=== PATIENT | male | born 1965 | race Caucasian/White ===

== ENCOUNTER 2018-03-13 21:23 | Emergency (ER) | payer OTHER ==
[~2018-03-13] VITALS: Ht 177.8 cm; Wt 74.6 kg
[2018-03-13 21:27] VITALS: TEMP 37.1; Ht 177.8 cm; Wt 74.6 kg
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
[2018-03-13] MEDS ORDERED: ACETAMINOPHEN 325 MG TAB PO STA (22:02)
[2018-03-13] MEDS ORDERED: DIPHTHERIA/TETANUS/PERTUSSIS 0.5 ML SYR/VIAL IM. ONE (22:15)
--- NOTE | 2018-03-13 22:31 | DIAGNOSTIC IMAGING REPORT ---
SINGLE VIEW CHEST CLINICAL HISTORY: Fall. FINDINGS: An AP, portable, upright chest radiograph is compared to study dated 11/25/2015. The examination is degraded by portable technique and patient rotation. The cardiomediastinal silhouette is unremarkable. The lungs and pleural spaces are clear. No pneumothorax is seen. The bony thorax is grossly intact. IMPRESSION: No active disease in the chest. Electronically signed by: Yon Mathews M.D. 03/13/2018 10:30 PM Dictated Date/Time: 03/13/2018 10:30 PM
--- NOTE | 2018-03-13 22:31 | DIAGNOSTIC IMAGING REPORT ---
LEFT ELBOW 2 VIEWS CLINICAL HISTORY: Fall with left elbow pain. FINDINGS: AP and lateral views of the left elbow are obtained. No prior studies are available for comparison at the time of dictation. The skeletal structures are well mineralized. No fracture is identified. There is no joint effusion. The joint spaces are maintained. A small enthesophyte arises from the lateral humeral epicondyle. The overlying soft tissues are within normal limits. IMPRESSION: There is no radiographic evidence of left elbow fracture. Electronically signed by: Yon Mathews M.D. 03/13/2018 10:30 PM Dictated Date/Time: 03/13/2018 10:28 PM
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
[2018-03-13 23:36] VITALS: BP 125/89; PULSE 74; O2SAT 95
== END 2018-03-13 23:37 | disposition home or self-care (01) ==
LOC: EDBD 21:23 → C.EDC 21:24
DX: S00.81XA Abrasion of other part of head, initial encounter (principal); S30.811A Abrasion of abdominal wall, initial encounter; S50.812A Abrasion of left forearm, initial encounter; S80.212A Abrasion, left knee, initial encounter; Z23 Encounter for immunization; V19.3XXA Pedal cyclist (driver) (passenger) injured in unspecified nontraffic accident, initial encounter; Y93.55 Activity, bike riding; K08.109 Complete loss of teeth, unspecified cause, unspecified class; F17.200 Nicotine dependence, unspecified, uncomplicated; Z86.59 Personal history of other mental and behavioral disorders

== ENCOUNTER 2021-09-25 08:54 | Inpatient (IN) ==
[2021-09-25] MEDS ORDERED: SODIUM CHLORIDE 0.9% 1000ML 1,000 ML IV ONE (10:39)
[2021-09-25] MEDS ORDERED: ONDANSETRON INJ 2 MG/ML 2 ML VIAL IV STA (10:39)
[2021-09-25] MEDS ORDERED: KETOROLAC TROMETHAMINE 15 MG/ML VIAL IV ONE (10:42)
--- NOTE | 2021-09-25 10:48 | Emergency Department Note ---
Impression & Plan SBO (small bowel obstruction), Diverticulitis, Influenza A ED Provider Note NAME: ZEYAD POTTER SR AGE: 56 SEX: M : 1965 ARRIVES VIA: Public Transportation INFORMANT: Patient ED PROVIDER(S): Angus Suárez DO CHIEF COMPLAINT: URI with abdominal pain HPI: Patient is a 56-year-old male who presents ER for upper respiratory symptoms which started this past Saturday. He has a cough and congestion. Loss of taste or smell. He admits to diffuse myalgias and arthralgias and epigastric abdominal pain. He was around a family member on that was sick with same symptoms. He does have a history of smoking. No other exacerbating or remitting factors. ROS: See above HPI for pertinent positives & negatives. A total of 10 systems reviewed and were otherwise negative. PAST MEDICAL HISTORY:See Below PAST SURGICAL HISTORY:See Below FAMILY HISTORY:See Below SOCIAL HISTORY:See Below HOME MEDICATIONS:See Below ALLERGIES:See Below VITALS:See Below PHYSICAL EXAMINATION: GENERAL: Sitting up in bed, alert, well appearing, well nourished, no distress, non-toxic EYE EXAM: normal conjunctiva. PERRL and EOM's grossly intact. OROPHARYNX: no exudate, no erythema, lips, buccal mucosa, and tongue normal and mucous membranes are moist NECK: supple, no nuchal rigidity, no adenopathy, non-tender LUNGS: faint wheezing B/L. Normal chest wall mechanics HEART: no murmurs, S1 normal and S2 normal ABDOMEN: abdomen soft, mild periumbilical tenderness, normo-active bowel sounds, no masses, no rebound or guarding. UPPER EXTREMITIES: upper extremities are grossly normal. LOWER EXTREMITIES: No pitting edema. NEURO EXAM: Normal sensorium, cranial nerves II-XII grossly intact, normal speech, no gross weakness of arms, no gross weakness of legs. MEDICAL DECISION MAKING: Patient is a 56 male who presents the ER for abdominal pain and upper respiratory symptoms. IV was established blood work is obtained. Labs show no significant leukocytosis or anemia. BMP with mild hypokalemia 3.1. LFTs bilirubin was unremarkable. Troponin was negative. Lipase unremarkable. UA was contaminated with multiple epithelial cells. Will not treat. Influenza positive. CT abdomen pelvis shows perforation with a possible high-grade obstruction. Discussed with general surgery who saw the patient at bedside. They believe that this is small bowel diverticulitis with an abscess. Recommended IV antibiotics. Discussed with Marisol Larson for further evaluation. Patient was seen by Marck Quinones as well as Momo Handley. Triage Nursing notes reviewed. Limited review of prior medical records performed Vital Signs: reviewed and remarkable for no significant abnormalities Differential diagnosis: Differential diagnoses includes but is not limited to gastritis, peptic ulcer disease, GERD, gallbladder disease, pancreatitis, small bowel obstruction, acute coronary syndrome, pericarditis, ischemic bowel, irritable bowel disease, irritable bowel syndrome, appendicitis, diverticulitis, malignancy, hernia, urinary tract infection, torsion, perforation, trauma, infectious. ER treatment provided: See below Diagnostics interpreted by me: ECG: Sinus rhythm rate 67 Normal axis No PVCs QTC 418 Cardiac Monitoring: An order was placed for continuous cardiac monitoring. The monitor shows a rate of 70 with sinus rhythm. Laboratory studies: As stated above and show below. Imaging studies: CT abdomen pelvis suggest closed-loop bowel obstruction with perforation and abscess Consultation(s): Patient was seen and evaluated by Dr. Momo Handley who recommend admission to the hospitalist and IV antibiotics for treatment of diverticulitis. Discussed with Marisol Larson for admission Procedures: none Critical Care: None Past Med/Surg History Medical History CHI (closed head injury) (~2007) Diverticulitis, jejunum Major depression, recurrent (~2015) Voluntary Hospital Admission Surgical History H/O hernia repair (~2015) Family History Father Coronary heart disease Stroke Social History Smoking Status: Never smoker Tobacco Type: Cigarettes Age Started Using Tobacco: 20; packs per day: 0.25; Second Hand Exposure: No; Hx Alcohol Use: No Hx Substance Use: No Preferred Language: Maori Communication Ability: Effective Visual Impairment: Diminished Hearing Ability: Normal Toy Mechanic Required: No marital status: Current Living Situation: Spouse current occupational status: employed current occupation: currently [employer] but shut down due to Covid How many Children do You have: 0 Feels Safe at Home: Yes Childhood Exposure to Second-Hand Smoke: No caffeine: Yes Dental Care, Regularly: No Physical Activity Frequency: Does not Exercise Seatbelt Use: always Sunscreen Use: Yes Do you think of yourself as: straight/heterosexual Allergies Allergies Allergy/AdvReac Type Severity Reaction Status Date / Time No Known Allergies Allergy Mild Verified 09/25/21 11:02 Home Meds Home Medications Medication Instructions Recorded Confirmed No Known Home Medications 09/25/21 09/25/21 Results & Data (ED) Vital Signs Vital Signs - 24 hr 09/25/21 09:14 09/25/21 10:39 Temperature 36.3 C L Temperature Source Oral Pulse Rate 81 Pulse Rhythm Regular Pulse Strength Normal Respiratory Rate 20 Respiratory Effort / Characteristics Non-Labored Spontaneous Respiratory Depth Normal Respiratory Pattern Regular Blood Pressure 139/85 Blood Pressure Mean 103 Blood Pressure Position Sitting Pulse Oximetry 98 99 Oxygen Delivery Method Room Air Room Air Sepsis Recent Fever Within 48 Hours No Sepsis New/Unexplained Change in Mental Status No Sepsis Action Taken by Nursing No Action Required Laboratory Data Result diagrams: 09/25/21 10:47 09/25/21 10:47 Lab Results 09/25/21 09/25/21 09/25/21 Range/Units 10:47 10:47 12:25 WBC 10.51 (4.8-10.8) K/uL RBC 4.83 (4.7-6.1) M/uL Hgb 15.0 (14.0-18.0) g/dL Hct 44.2 (42-52) % MCV 91.5 (80-100) fL MCH 31.1 (25-34) pg MCHC 33.9 (32-36) g/dL RDW Std Deviation 43.8 (36.4-46.3) fL RDW Coeff of Dhaval 13.1 (11.5-14.5) % Plt Count 283 (130-400) K/uL MPV 9.5 (7.4-10.4) fL Immature Gran % (Auto) 0.4 % Neut % (Auto) 70.7 % Lymph % (Auto) 17.6 % [place] % (Auto) 9.6 % Eos % (Auto) 1.2 % Baso % (Auto) 0.5 % Neut # (Auto) 7.43 H (1.4-6.5) K/uL Lymph # (Auto) 1.85 (1.2-3.4) K/uL [place] # (Auto) 1.01 H (0.11-0.59) K/uL Eos # (Auto) 0.13 (0-0.5) K/uL Baso # (Auto) 0.05 (0-0.2) K/uL Immature Gran # (Auto) 0.04 H (0.00-0.02) K/uL Sodium 137 (136-145) mmol/L Potassium 3.1 L (3.5-5.1) mmol/L Chloride 102 (98-107) mmol/L Carbon Dioxide 30 (21-32) mmol/L Anion Gap 5.0 (3-11) BUN 21 H (7-18) mg/dl Creatinine 1.08 (0.6-1.4) mg/dl Est Cr Clr Drug Dosing 68.0 ml/min Est GFR ( Amer) 89.7 ml/min Est GFR (Non-Af Amer) 77.4 ml/min BUN/Creatinine Ratio 19.2 (10-20) Glucose 132 H (70-99) mg/dl Calcium 9.3 (8.5-10.1) mg/dl Total Bilirubin 0.8 (0.2-1) mg/dl AST 19 (15-37) U/L ALT 24 (12-78) U/L Alkaline Phosphatase 68 (45-117) U/L Troponin I < 0.015 (0-0.045) ng/ml Total Protein 8.1 (6.4-8.2) gm/dl Albumin 2.9 L (3.4-5.0) gm/dl Globulin 5.2 H (2.5-4.0) gm/dl Albumin/Globulin Ratio 0.6 L (0.9-2) Lipase 122 (73-393) U/L Urine Color Gisel Urine Appearance Cloudy A (Clear) Urine pH 5.0 (4.5-7.5) Ur Specific [place] 1.031 H (1.000-1.030) Urine Protein 2+ H (Negative) Urine Glucose (UA) Negative (Negative) Urine Ketones Trace H (Negative) Urine Blood Negative (Negative) Urine Nitrite Negative (Negative) Urine Bilirubin 1+ H (Negative) Urine Urobilinogen Negative (Negative) Ur Leukocyte Esterase Negative (Negative) Urine WBC (Auto) 10-30 H (0-5) /hpf Urine RBC (Auto) 0-4 (0-4) /hpf U Hyaline Cast (Auto) >30 H (0-5) /lpf U Epithel Cells (Auto) >30 H (0-5) /lpf Urine Bacteria (Auto) Negative (Negative) Ur Renal Epithelial Cell Not Reportable Granular Casts 20-30 H (0) /lpf Urine Mucus Present A (None Prsent) Urine Yeast Not Reportable Influ A Molecular Assay (Negative) Influ B Molecular Assay (Negative) 09/25/21 Range/Units 12:33 WBC (4.8-10.8) K/uL RBC (4.7-6.1) M/uL Hgb (14.0-18.0) g/dL Hct (42-52) % MCV (80-100) fL MCH (25-34) pg MCHC (32-36) g/dL RDW Std Deviation (36.4-46.3) fL RDW Coeff of Dhaval (11.5-14.5) % Plt Count (130-400) K/uL MPV (7.4-10.4) fL Immature Gran % (Auto) % Neut % (Auto) % Lymph % (Auto) % [place] % (Auto) % Eos % (Auto) % Baso % (Auto) % Neut # (Auto) (1.4-6.5) K/uL Lymph # (Auto) (1.2-3.4) K/uL [place] # (Auto) (0.11-0.59) K/uL Eos # (Auto) (0-0.5) K/uL Baso # (Auto) (0-0.2) K/uL Immature Gran # (Auto) (0.00-0.02) K/uL Sodium (136-145) mmol/L Potassium (3.5-5.1) mmol/L Chloride (98-107) mmol/L Carbon Dioxide (21-32) mmol/L Anion Gap (3-11) BUN (7-18) mg/dl Creatinine (0.6-1.4) mg/dl Est Cr Clr Drug Dosing ml/min Est GFR ( Amer) ml/min Est GFR (Non-Af Amer) ml/min BUN/Creatinine Ratio (10-20) Glucose (70-99) mg/dl Calcium (8.5-10.1) mg/dl Total Bilirubin (0.2-1) mg/dl AST (15-37) U/L ALT (12-78) U/L Alkaline Phosphatase (45-117) U/L Troponin I (0-0.045) ng/ml Total Protein (6.4-8.2) gm/dl Albumin (3.4-5.0) gm/dl Globulin (2.5-4.0) gm/dl Albumin/Globulin Ratio (0.9-2) Lipase (73-393) U/L Urine Color Urine Appearance (Clear) Urine pH (4.5-7.5) Ur Specific [place] (1.000-1.030) Urine Protein (Negative) Urine Glucose (UA) (Negative) Urine Ketones (Negative) Urine Blood (Negative) Urine Nitrite (Negative) Urine Bilirubin (Negative) Urine Urobilinogen (Negative) Ur Leukocyte Esterase (Negative) Urine WBC (Auto) (0-5) /hpf Urine RBC (Auto) (0-4) /hpf U Hyaline Cast (Auto) (0-5) /lpf U Epithel Cells (Auto) (0-5) /lpf Urine Bacteria (Auto) (Negative) Ur Renal Epithelial Cell Granular Casts (0) /lpf Urine Mucus (None Prsent) Urine Yeast Influ A Molecular Assay Positive A* (Negative) Influ B Molecular Assay Negative (Negative) Administered Medications Discontinued Medications Sodium Chloride (Nss 1000ml) 1,000 mls @ 999 mls/hr IV .Q1H1M ONE Stop: 09/25/21 11:39 Last Admin: 09/25/21 11:19 Dose: 999 mls/hr Documented by: [id number] Piperacillin Sod/Tazobactam (Sod 4.5 gm/ Dextrose) 120 mls @ 200 mls/hr IV NOW ONE; Protocol Stop: 09/25/21 14:01 Last Admin: 09/25/21 13:44 Dose: 200 mls/hr Documented by: [id number] Ioversol (Optiray 320 100ml) 95 ml IV ONCE ONE Stop: 09/25/21 12:43 Last Admin: 09/25/21 12:43 Dose: 95 ml Documented by: [id number] Ketorolac Tromethamine (Ketorolac Tromethamine 15 Mg/Ml Vial) 15 mg IV NOW ONE Stop: 09/25/21 10:43 Last Admin: 09/25/21 11:20 Dose: 15 mg Documented by: [id number] Ondansetron HCl (Ondansetron Inj 2 Mg/Ml 2 Ml Vial) 4 mg IV NOW STA Stop: 09/25/21 10:40 Last Admin: 09/25/21 11:18 Dose: 4 mg Documented by: [id number] Imaging Data Radiologist's Impression: Abdomen/Pelvis CT 09/25/21 10:39 CT abd pelvis IV con only CLINICAL HISTORY: epi abd pain COMPARISON STUDY: 03/25/2016 CT DOSE: 316.21 mGy.cm TECHNIQUE: Standard CT of the Abdomen and Pelvis was performed with IV contrast. A dose lowering technique was utilized adhering to the principles of ALARA. Contrast Volume: Optiray 320, 95 ml. The patient did not receive oral contrast. FINDINGS: Lung base: The lung bases are clear. Abdominal cavity and bowel: There is evidence for dilated loops of small bowel/jejunum in the left upper quadrant with what appears to be a high-grade, partial closed loop obstruction. Prominent mucosal thickening and edematous changes are present. There is perforation of the small bowel at this site with a abscess present in the left upper quadrant. Extraluminal air is seen within the fluid collection with no free air identified. This abnormal fluid collection measures approximately 8.4 x 3.3 x 9.0 cm in transverse, AP and craniocaudad dimensions respectively. The more distal small bowel loops are decompressed. The colon is of normal caliber. There is no evidence for free abdominal ascites. There is no evidence for adenopathy. Liver: There is homogeneous attenuation of the liver parenchyma. There is no evidence for enhancing mass lesion. Spleen: There is homogeneous attenuation of the splenic parenchyma. There is no enhancing mass lesion. Pancreas: There is homogeneous attenuation of the pancreatic parenchyma. There is no evidence for mass lesion or peripancreatic fluid collection. Gall Bladder: The gallbladder is well distended with suspicion of cholelithiasis. Gallbladder ultrasound would be the study of choice for further evaluation. Adrenal glands: The adrenal glands are normal in size and attenuation. There is no evidence for enhancing mass lesion. Kidneys: There is homogeneous attenuation of the renal parenchyma bilaterally. There is no evidence for renal calculus or hydronephrosis. There is no evidence for enhancing mass. Bladder: The bladder is within normal limits with no evidence for focal mass, calculus or diverticulum. : There is no evidence for pelvic mass or adenopathy. There is no evidence for pelvic ascites. The prostate is mildly enlarged. Vasculature: There is no evidence for aneurysmal dilatation of the abdominal aorta. IVC filter is in place. Osseous structures: There is no acute osseous pathology. IMPRESSION: 1. Evidence for a high-grade, partial closed-loop small bowel obstruction of left upper quadrant most likely involving the jejunum. There is perforation of small bowel with localized fluid collection and extraluminal air most aminata acteristic of an abscess. No free intraperitoneal air is identified. 2. Suspicion of choledocholithiasis. 3. Additional nonacute findings are delineated above. ACT 112: Negative or not required by law. Electronically signed by: Raz Reaves M.D. 09/25/2021 1:21 PM Chest X-Ray 09/25/21 10:39 XR chest 1V portable CLINICAL HISTORY: Chest Pain. COMPARISON STUDY: 03/13/2018 TECHNIQUE: 1 view of the chest FINDINGS: Single frontal view of the chest demonstrates the cardiomediastinal silhouette to be within normal limits. The lungs are clear of alveolar opacities. There is no evidence for pleural effusion. There is no evidence for vascular congestion. There is no acute osseous pathology. IMPRESSION: No acute cardiopulmonary disease. ACT 112: Negative or not required by law. Electronically signed by: Raz Reaves M.D. 09/25/2021 11:23 AM Discharge Plan Visit Data Chief Complaint: Abdominal Pain Stated Complaint: HEAD ACHE,ABD PAIN ED Provider: Angus Suárez Discharge Problem: SBO (small bowel obstruction), Diverticulitis, Influenza A Forms Stand Alone Forms: [employer] Prescriptions Prescriptions: No Action No Known Home Medications RF: 0 Referrals Referrals: Porter aSnto DO [Primary Care Provider] -
[2021-09-25 10:58] LABS: Basophils # (auto) 0.05 K/uL (0-0.2); Basophils % (auto) 0.5 %; Eosinophils # (auto) 0.13 K/uL (0-0.5); Eosinophils % (auto) 1.2 %; Hematocrit (blood only) 44.2 % (42-52); Immature Granulocytes # (auto) 0.04 K/uL (0.00-0.02); Immature Granulocytes % (auto) 0.4 %; Lymphocytes # (auto) 1.85 K/uL (1.2-3.4); Lymphocytes % (auto) 17.6 %; Mean Corpuscular Hemoglobin 31.1 pg (25-34); Mean Corpuscular Hgb Conc 33.9 g/dL (32-36); Mean Corpuscular Volume 91.5 fL (80-100); Mean Platelet Volume 9.5 fL (7.4-10.4); Monocytes # (auto) 1.01 K/uL (0.11-0.59); Monocytes % (auto) 9.6 %; Neutrophils # (auto) 7.43 K/uL (1.4-6.5); Neutrophils % (auto) 70.7 %; Platelet Count 283 K/uL (130-400); RDW Coefficient of Variation 13.1 % (11.5-14.5); RDW Standard Deviation 43.8 fL (36.4-46.3); Red Blood Count 4.83 M/uL (4.7-6.1); White Blood Count 10.51 K/uL (4.8-10.8)
[2021-09-25 11:18] LABS: Alanine Aminotransferase 24 U/L (12-78); Albumin Level 2.9 gm/dl (3.4-5.0); Aspartate Aminotransferase 19 U/L (15-37); BUN Creatinine Ratio 19.2 (10-20); Blood Urea Nitrogen 21 mg/dl (7-18); Calcium 9.3 mg/dl (8.5-10.1); Carbon Dioxide 30 mmol/L (21-32); Chloride 102 mmol/L (98-107); Est GFR (African American) 89.7 ml/min; Est GFR (Non-African American) 77.4 ml/min; Glucose 132 mg/dl (70-99); Lipase 122 U/L (73-393); Potassium 3.1 mmol/L (3.5-5.1); Sodium 137 mmol/L (136-145)
[2021-09-25 11:23] LABS: Albumin Globulin Ratio 0.6 (0.9-2); Alkaline Phosphatase 68 U/L (45-117); Bilirubin,Total 0.8 mg/dl (0.2-1); Globulin 5.2 gm/dl (2.5-4.0); Total Protein 8.1 gm/dl (6.4-8.2); Troponin I < 0.015 ng/ml (0-0.045)
--- NOTE | 2021-09-25 11:24 | XRay Report ---
XR chest 1V portable CLINICAL HISTORY: Chest Pain. COMPARISON STUDY: 03/13/2018 TECHNIQUE: 1 view of the chest FINDINGS: Single frontal view of the chest demonstrates the cardiomediastinal silhouette to be within normal li mits. The lungs are clear of alveolar opacities. There is no evidence for pleural effusion. There is no evidence for vascular congestion. There is no acute osseous pathology. IMPRESSION: No acute cardiopulmonary disease. ACT 112: Negative or not required by law. Electronically signed by: Raz Reaves M.D. 09/25/2021 11:23 AM
[2021-09-25] MEDS ORDERED: OPTIRAY 320 100ml IV ONE (12:42)
[2021-09-25 12:49] LABS: Appearance Urine Cloudy (Clear); Bacteria Urine Automated Negative (Negative); Blood Urine Negative (Negative); Epithelial Cell Urine Auto >30 /lpf (0-5); Glucose Urine UA Negative (Negative); Ketones Urine Trace (Negative); Leukocyte Esterase Urine Negative (Negative); Nitrite Urine Negative (Negative); Protein Urine 2+ (Negative); RBC Urine Automated 0-4 /hpf (0-4); Specific Gravity Urine 1.031 (1.000-1.030); Urobilinogen Urine Negative (Negative)
[2021-09-25 12:50] LABS: Bilirubin Urine 1+ (Negative); Color Urine Amber
[2021-09-25 13:02] LABS: Cast Urine Automated >30 /lpf (0-5); Granular Casts Urine 20-30 /lpf (0)
[2021-09-25 13:03] LABS: Mucus Urine Present (None Prsent)
[2021-09-25 13:05] LABS: Influenza A virus by PCR Positive (Negative); Influenza B virus by PCR Negative (Negative)
--- NOTE | 2021-09-25 13:22 | CT Scan Report ---
CT abd pelvis IV con only CLINICAL HISTORY: epi abd pain COMPARISON STUDY: 03/25/2016 CT DOSE: 316.21 mGy.cm TECHNIQUE: Standard CT of the Abdomen and Pelvis was performed with IV contrast. A dose lowering delmy hnique was utilized adhering to the principles of ALARA. Contrast Volume: Optiray 320, 95 ml. The patient did not receive oral contrast. FINDINGS: Lung base: The lung bases are clear. Abdominal cavity and bowel: There is evidence for dilated loops of small bowel/jejunum in the left up per quadrant with what appears to be a high-grade, partial closed loop obstruction. Prominent mucosal thickening and edematous changes are present. There is perforation of the small bowel at this site w ith a abscess present in the left upper quadrant. Extraluminal air is seen within the fluid collectio n with no free air identified. This abnormal fluid collection measures approximately 8.4 x 3.3 x 9.0 cm in transverse, AP and craniocaudad dimensions respectively. The more distal small bowel loops are decompressed. The colon is of normal caliber. There is no evidence for free abdominal ascites. There is no evidence for adenopathy. Liver: There is homogeneous attenuation of the liver parenchyma. There is no evidence for enhancing m ass lesion. Spleen: There is homogeneous attenuation of the splenic parenchyma. There is no enhancing mass lesion . Pancreas: There is homogeneous attenuation of the pancreatic parenchyma. There is no evidence for mas s lesion or peripancreatic fluid collection. Gall Bladder: The gallbladder is well distended with suspicion of cholelithiasis. Gallbladder ultraso und would be the study of choice for further evaluation. Adrenal glands: The adrenal glands are normal in size and attenuation. There is no evidence for enhan cing mass lesion. Kidneys: There is homogeneous attenuation of the renal parenchyma bilaterally. There is no evidence f or renal calculus or hydronephrosis. There is no evidence for enhancing mass. Bladder: The bladder is within normal limits with no evidence for focal mass, calculus or diverticulu m. : There is no evidence for pelvic mass or adenopathy. There is no evidence for pelvic ascites. The prostate is mildly enlarged. Vasculature: There is no evidence for aneurysmal dilatation of the abdominal aorta. IVC filter is in place. Osseous structures: There is no acute osseous pathology. IMPRESSION: 1. Evidence for a high-grade, partial closed-loop small bowel obstruction of left upper quadrant most likely involving the jejunum. There is perforation of small bowel with localized fluid collection an d extraluminal air most characteristic of an abscess. No free intraperitoneal air is identified. 2. Suspicion of choledocholithiasis. 3. Additional nonacute findings are delineated above. ACT 112: Negative or not required by law. Electronically signed by: Raz Reaves M.D. 09/25/2021 1:21 PM
[2021-09-25] MEDS ORDERED: PIPERACILL/TAZOBAC CONSULT ACTIVE PRN ×2 (13:26→22:21)
[2021-09-25] MEDS ORDERED: PIPERACILLIN/TAZOBACTAM 4.5 GM in DEXTROSE 5% 100 ML IV ONE (13:26)
--- NOTE | 2021-09-25 14:30 | Electrocardiogram Report ---
Test Reason : Blood Pressure : / mmHG Vent. Rate : 067 BPM Atrial Rate : 067 BPM P-R Int : 160 ms QRS Dur : 106 ms QT Int : 396 ms P-R-T Axes : 070 028 034 degrees QTc Int : 418 ms Normal sinus rhythm Normal ECG When compared with ECG of 05-MAY-2016 10:32, No significant change was found Confirmed by Saul Healy ([id number]) on 09/25/2021 2:30:23 PM Referred By: REFERRED SELF Confirmed By:Filippo Healy
--- NOTE | 2021-09-25 15:05 | Surgery Consultation ---
Date of Consultation September 25, 2021 Assessment & Plan (1) Diverticulitis small intestine: -CT images and results reviewed, no free air and no drainable abscess -It seems he has a small bowel diverticulitis with possible contained perforation. Would keep him n.p.o. and give him IV antibiotics and monitor his abdominal exam. If he begins to have worsening abdominal pain, leukocytosis, pyrexia or tachycardia he may require exploration. -There was a question of cholelithiasis or choledocholithiasis on his CT scan. We will order a right upper quadrant ultrasound to further investigate. -No plans for surgical intervention at this time. We will monitor his progress on IV antibiotics. -We will follow along * History of Present Illness Reason for Consultation: Abdominal pain, possible small bowel perforation Requesting Physician: Dr. Suárez History of Present Illness This is a 56-year-old male presents to the emergency department with complaint of abdominal pain nausea vomiting and cough. He states 5 days ago he began having upper abdominal pain sharp in nature without radiation associated with some cough and generalized malaise. He thought he had Covid and came to the emergency room today. He states his abdominal pain started 5 days ago and is no worse today than at that time. He denies any fevers. He admits to some subjective chills. He has had some nausea and vomiting. He denies any constipation but has had some looser bowel movements over the last 2 days. He denies any melena or hematochezia. He has never had a colonoscopy. He denies any family history of colon cancer. He had a loose bowel movement this morning and continues to pass flatus. Allergies Allergy/AdvReac Type Severity Reaction Status Date / Time No Known Allergies Allergy Mild Verified 09/25/21 11:02 Home Medications Medication Instructions Recorded Confirmed Type No Known Home Medications 09/25/21 09/25/21 History Patient History Medical History CHI (closed head injury) (~2007) Diverticulitis, jejunum Major depression, recurrent (~2015) Voluntary Hospital Admission Surgical History H/O hernia repair (~2015) Family History Father Coronary heart disease Stroke Social History Smoking Status: Never smoker Tobacco Type: Cigarettes Age Started Using Tobacco: 20; packs per day: 0.25; Second Hand Exposure: No; Hx Alcohol Use: No Hx Substance Use: No Preferred Language: Bulgarian Communication Ability: Effective Visual Impairment: Diminished Hearing Ability: Normal Process Supervisor Required: No marital status: Current Living Situation: Spouse current occupational status: employed current occupation: currently [employer] but shut down due to Covid How many Children do You have: 0 Feels Safe at Home: Yes Childhood Exposure to Second-Hand Smoke: No caffeine: Yes Dental Care, Regularly: No Physical Activity Frequency: Does not Exercise Seatbelt Use: always Sunscreen Use: Yes Do you think of yourself as: straight/heterosexual Review of Systems Constitutional: + chills and + malaise; no fever Eyes: no blind spots and no worsening vision Ear, Nose, Mouth, Throat: no ear pain and no hearing loss Respiratory: + cough; no chest congestion, no dyspnea and no dyspnea on exertion Cardiovascular: no chest pain and no dyspnea on exertion Gastrointestinal: + abdominal pain, + nausea, + vomiting and + diarrhea/loose stools; no constipation, no blood in stools and no melena Genitourinary: no dysuria or no hematuria Musculoskeletal: no back pain and no neck pain Integumentary: no rash, no skin ulcer, no wounds and no erythema Neurologic: + falls (history of fall and TBI) Psychiatric: + depression; no behavioral changes Hematologic / Lymphatic: no easy bleeding and no easy bruising Physical Exam Constitutional: WD/WN, vitals as above Eyes: PERRL, conjunctivae normal, anicteric sclerae ENMT: external ear and nose normal, oropharynx normal Neck: trachea midline, no thyromegaly Respiratory: normal respiratory effort, lungs clear to auscultation Cardiovascular: RRR, no murmur, no edema Gastrointestinal (Abdomen): Inspection/Auscultation: abdomen normal to inspection; abdomen not distended Percussion/Palpation: + abdomen tender (epigastrum) and abdomen soft; no guarding, abdomen not rigid and no hernia Musculoskeletal: no cyanosis or clubbing, extremities motor strength 5/5 Skin: no rashes, warm and dry Neurologic: PERRL, EOMI, accommodation nl, no face palsy, no dysarthria Psychiatric: A+Ox3, euthymic affect Results & Data ([facility]) Vital Signs (Past 12 Hours) Vital Signs Temp Pulse Resp BP Pulse Ox 09/25/21 10:39 99 09/25/21 09:14 36.3 C L 81 20 139/[address] A/P 09/25/21 IMPRESSION: 1. Evidence for a high-grade, partial closed-loop small bowel obstruction of left upper quadrant most likely involving the jejunum. There is perforation of small bowel with localized fluid collection and extraluminal air most characteristic of an abscess. No free intraperitoneal air is identified. 2. Suspicion of choledocholithiasis. 3. Additional nonacute findings are delineated above. PG Care Time/CCT Total # of Minutes Spent Total Time Spent with Patient: Total time spent is greater than 50% in coordination of care (as documented) at patient's floor/unit and/or counseling patient: Coding Level of Care Code 59332 Inpt Consult Level 5 Diagnoses Diverticulitis small intestine K57.12
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
[2021-09-25] MEDS: POTASSIUM CHLORIDE / WTR 10 MEQ/100 ML PLCT IV SCH ×2 (16:57→21:37)
[2021-09-25] MEDS: LACTATED RINGER'S 1,000 ML IV SCH (16:57)
--- NOTE | 2021-09-25 20:51 | Ultrasound Report ---
ULTRASOUND RIGHT UPPER QUADRANT ABDOMEN CLINICAL HISTORY: Epigastric abdominal pain. COMPARISON STUDY: Abdominal CT dated 09/25/2021. TECHNIQUE: Real-time, grayscale, and color flow sonography of the right upper quadrant of the abdomen was performed. Images are reviewed in the transverse and longitudinal planes. FINDINGS: Liver: The liver is normal in size and echotexture. There is no intrahepatic biliary ductal dilatatio n. The main portal vein is patent. Gallbladder: The gallbladder is normal in appearance. No gallstones are identified. There is no gallb ladder wall thickening or pericholecystic fluid. A sonographic Martinez's sign is reportedly absent. Th e common bile duct measures up to 0.5 cm in diameter. Pancreas: Visualized portions of the pancreatic head and body are normal in appearance. The splenic v ein is patent. Right kidney: Survey images of the right kidney demonstrate normal size and echotexture. There is no hydronephrosis. Ascites: None. IMPRESSION: Unremarkable sonographic assessment of the right upper quadrant. No gallstones are identi fied. ACT 112: Negative or not required by law. Electronically signed by: Yon Mathews M.D. 09/25/2021 8:50 PM
[2021-09-25] MEDS ORDERED: ONDANSETRON INJ 2 MG/ML 2 ML VIAL IV PRN (22:21)
[2021-09-25] MEDS ORDERED: MoRPHine SULFATE 2 MG/ML CARP IV PRN (22:21)
[2021-09-25] MEDS: PIPERACILLIN/TAZOBACTAM 3.375 GM in DEXTROSE 5% 100 ML IV SCH (23:54)
[2021-09-26] MEDS: POTASSIUM CHLORIDE / WTR 10 MEQ/100 ML PLCT IV SCH ×2 (02:09→06:03)
[2021-09-26] MEDS: LACTATED RINGER'S 1,000 ML IV SCH (03:32)
[2021-09-26] MEDS: PIPERACILLIN/TAZOBACTAM 3.375 GM in DEXTROSE 5% 100 ML IV SCH ×3 (05:59→22:49)
[2021-09-26 07:14] LABS: Basophils # (auto) 0.03 K/uL (0-0.2); Basophils % (auto) 0.3 %; Eosinophils # (auto) 0.31 K/uL (0-0.5); Eosinophils % (auto) 3.5 %; Hematocrit (blood only) 39.3 % (42-52); Immature Granulocytes # (auto) 0.02 K/uL (0.00-0.02); Immature Granulocytes % (auto) 0.2 %; Lymphocytes # (auto) 2.07 K/uL (1.2-3.4); Lymphocytes % (auto) 23.6 %; Mean Corpuscular Hemoglobin 30.6 pg (25-34); Mean Corpuscular Hgb Conc 33.1 g/dL (32-36); Mean Corpuscular Volume 92.5 fL (80-100); Mean Platelet Volume 9.4 fL (7.4-10.4); Monocytes # (auto) 0.86 K/uL (0.11-0.59); Monocytes % (auto) 9.8 %; Neutrophils # (auto) 5.48 K/uL (1.4-6.5); Neutrophils % (auto) 62.6 %; Platelet Count 275 K/uL (130-400); RDW Coefficient of Variation 13.3 % (11.5-14.5); RDW Standard Deviation 45.2 fL (36.4-46.3); Red Blood Count 4.25 M/uL (4.7-6.1); White Blood Count 8.77 K/uL (4.8-10.8)
--- NOTE | 2021-09-26 07:45 | Hospitalist Progress Note ---
Date of Service September 26, 2021 Assessment & Plan (1) Diverticulitis small intestine: Plan: With contained perforation with fluid collection -- felt to have perforated x 1 week ago, now contained Continue ZOsyn IV General surgery on consult (RUQ obtained for concerns choledocholithiasis? no CBD dilation --> negative for acute osmar) -->Per surgery, trial of clears today --> discussed if any increased pain to alert nursing and STOP IMMEDIATELY switched IVF to D5 1/2NS + K @ 125cc/hr Antiemetics with zofran, pain control with morphine prn WBC wnl, afebrile If clinically deteriorates, develops pyrexia, tachycardia, increased pain, leukocytosis, may need surgical exploration Follow CBC, CMP, magnesium, phosphorus and replete electrolytes as needed (2) SBO (small bowel obstruction): Plan: Ruled out as per surgery as above (3) Influenza A: Plan: Seems to be significantly improved with his symptoms of influenza A which started on He is outside the window for using Tamiflu Supportive care Isolation precautions Stable on room air (4) Hypokalemia: Plan: Secondary to poor p.o. intake Replace with IV potassium chloride 40 mEq Resolved on AM labs Continued replacement in IVF Follow BMP and magnesium in the morning (5) Abnormal urinalysis: Plan: Seems more consistent with contamination Urine culture is pending but would not treat for UTI --> urine cx without acute infection Already on Zosyn as above Plan: DVT prophylaxis-SCDs, avoid anticoagulation in case of need for surgery at this point Continued inpatient stay Admission and Anticipated Discharge Date Admission Date: September 25, 2021 Subjective patient evaluated this morning less abdominal pain (across upper abdomen). no nausea or vomiting no further clamminess mouth is dry -- states was just seen by surgery and thinks maybe will be able to have some water today. he states surgery said about water would be ok but if worsening pain to stop immediately. will touch base given abscess to avoid worsening pain. has been passing lots of gas and walking around but no bowel movement since admission. he note "I don't have anything in there to come out". Does have occasional cough with yellow/white sputum but no shortness of breath. on room air and zoysn currently for abx infection. No chest pain, shortness of breath, dysuria or other symptoms reported at this time. Review of Systems Review of Systems: All systems reviewed & are unremarkable except as noted in HPI & below Physical Exam Constitutional: WD/WN, vitals as above Eyes: PERRL, conjunctivae normal, anicteric sclerae ENMT: external ear and nose normal, oropharynx normal Neck: trachea midline, no thyromegaly With scar from previous tracheostomy Respiratory: normal respiratory effort, lungs clear to auscultation Cardiovascular: RRR, no murmur, no edema Chest (Breasts): Chest: normal inspection of chest Gastrointestinal (Abdomen): Inspection/Auscultation: abdomen normal to inspection and normal bowel sounds; abdomen not distended Percussion/Palpation: + abdomen tender (Mild in epigastric region/upper abd without guarding or rebound) and abdomen soft Musculoskeletal: Extremities: extremities normal to inspection; no cyanosis and no clubbing Skin: no rashes, warm and dry Neurologic: moves all extremities and awake; no focal motor deficits Psychiatric: A+Ox3, euthymic affect Lymphatic: no lymphedema Results & Data Results & Data ([facility]) Vital Signs (Past 12 Hours) Vital Signs Temp Pulse Pulse Resp BP BP Pulse Ox 09/25/21 23:15 36.6 C 58 L 16 142/87 H 94 09/25/21 22:30 78 19 94 09/25/21 22:00 62 21 128/89 93 09/25/21 21:34 63 25 H 95 09/25/21 20:00 59 L 19 123/80 95 Laboratory Results 09/26/21 09/26/21 09/26/21 Range/Units 13:02 06:53 06:53 WBC 8.77 (4.8-10.8) K/uL RBC 4.25 L (4.7-6.1) M/uL Hgb 13.0 L (14.0-18.0) g/dL Hct 39.3 L (42-52) % MCV 92.5 (80-100) fL MCH 30.6 (25-34) pg MCHC 33.1 (32-36) g/dL RDW Std Deviation 45.2 (36.4-46.3) fL RDW Coeff of Dhaval 13.3 (11.5-14.5) % Plt Count 275 (130-400) K/uL MPV 9.4 (7.4-10.4) fL Immature Gran % (Auto) 0.2 % Neut % (Auto) 62.6 % Lymph % (Auto) 23.6 % [place] % (Auto) 9.8 % Eos % (Auto) 3.5 % Baso % (Auto) 0.3 % Neut # (Auto) 5.48 (1.4-6.5) K/uL Lymph # (Auto) 2.07 (1.2-3.4) K/uL [place] # (Auto) 0.86 H (0.11-0.59) K/uL Eos # (Auto) 0.31 (0-0.5) K/uL Baso # (Auto) 0.03 (0-0.2) K/uL Immature Gran # (Auto) 0.02 (0.00-0.02) K/uL Sodium 140 139 (136-145) mmol/L Potassium 3.8 D (3.5-5.1) mmol/L Chloride 105 107 (98-107) mmol/L Carbon Dioxide 27 26 (21-32) mmol/L Anion Gap 7.0 6.0 (3-11) BUN 18 20 H (7-18) mg/dl Creatinine 0.90 0.91 (0.6-1.4) mg/dl Est Cr Clr Drug Dosing 94.8 93.7 ml/min Est GFR ( Amer) 111.8 110.3 ml/min Est GFR (Non-Af Amer) 96.5 95.2 ml/min BUN/Creatinine Ratio 20.4 H 22.1 H (10-20) Glucose 138 H 82 (70-99) mg/dl Calcium 8.5 8.3 L (8.5-10.1) mg/dl Phosphorus 3.2 (2.5-4.9) mg/dl Magnesium 2.3 (1.8-2.4) mg/dl Total Bilirubin 1.0 (0.2-1) mg/dl AST (15-37) U/L ALT 19 (12-78) U/L Alkaline Phosphatase 54 (45-117) U/L Total Protein 6.9 (6.4-8.2) gm/dl Albumin 2.2 L (3.4-5.0) gm/dl Globulin 4.7 H (2.5-4.0) gm/dl Albumin/Globulin Ratio 0.5 L (0.9-2) SARS-CoV-2 RNA (LILIA) (Negative) SARS-CoV-2, RNA, NAAT (NEGATIVE) 09/25/21 09/25/21 Range/Units 18:15 12:33 WBC (4.8-10.8) K/uL RBC (4.7-6.1) M/uL Hgb (14.0-18.0) g/dL Hct (42-52) % MCV (80-100) fL MCH (25-34) pg MCHC (32-36) g/dL RDW Std Deviation (36.4-46.3) fL RDW Coeff of Dhaval (11.5-14.5) % Plt Count (130-400) K/uL MPV (7.4-10.4) fL Immature Gran % (Auto) % Neut % (Auto) % Lymph % (Auto) % [place] % (Auto) % Eos % (Auto) % Baso % (Auto) % Neut # (Auto) (1.4-6.5) K/uL Lymph # (Auto) (1.2-3.4) K/uL [place] # (Auto) (0.11-0.59) K/uL Eos # (Auto) (0-0.5) K/uL Baso # (Auto) (0-0.2) K/uL Immature Gran # (Auto) (0.00-0.02) K/uL Sodium (136-145) mmol/L Potassium (3.5-5.1) mmol/L Chloride (98-107) mmol/L Carbon Dioxide (21-32) mmol/L Anion Gap (3-11) BUN (7-18) mg/dl Creatinine (0.6-1.4) mg/dl Est Cr Clr Drug Dosing ml/min Est GFR ( Amer) ml/min Est GFR (Non-Af Amer) ml/min BUN/Creatinine Ratio (10-20) Glucose (70-99) mg/dl Calcium (8.5-10.1) mg/dl Phosphorus (2.5-4.9) mg/dl Magnesium (1.8-2.4) mg/dl Total Bilirubin (0.2-1) mg/dl AST (15-37) U/L ALT (12-78) U/L Alkaline Phosphatase (45-117) U/L Total Protein (6.4-8.2) gm/dl Albumin (3.4-5.0) gm/dl Globulin (2.5-4.0) gm/dl Albumin/Globulin Ratio (0.9-2) SARS-CoV-2 RNA (LILIA) Negative (Negative) SARS-CoV-2, RNA, NAAT NEGATIVE (NEGATIVE) Diagnostic Findings Abdomen Ultrasound 09/25/21 14:58 ULTRASOUND RIGHT UPPER QUADRANT ABDOMEN CLINICAL HISTORY: Epigastric abdominal pain. COMPARISON STUDY: Abdominal CT dated 09/25/2021. TECHNIQUE: Real-time, grayscale, and color flow sonography of the right upper quadrant of the abdomen was performed. Images are reviewed in the transverse and longitudinal planes. FINDINGS: Liver: The liver is normal in size and echotexture. There is no intrahepatic biliary ductal dilatation. The main portal vein is patent. Gallbladder: The gallbladder is normal in appearance. No gallstones are identified. There is no gallbladder wall thickening or pericholecystic fluid. A sonographic Martinez's sign is reportedly absent. The common bile duct measures up to 0.5 cm in diameter. Pancreas: Visualized portions of the pancreatic head and body are normal in appearance. The splenic vein is patent. Right kidney: Survey images of the right kidney demonstrate normal size and echotexture. There is no hydronephrosis. Ascites: None. IMPRESSION: Unremarkable sonographic assessment of the right upper quadrant. No gallstones are identified. ACT 112: Negative or not required by law. Electronically signed by: Yon Mathews M.D. 09/25/2021 8:50 PM PG Care Time/CCT Total # of Minutes Spent Total Time Spent with Patient: Total time spent is greater than 50% in coordination of care (as documented) at patient's floor/unit and/or counseling patient: Coding Level of Care Code 03877 Subseq Hosp Care Lvl 2 Diagnoses Diverticulitis small intestine K57.12 SBO (small bowel obstruction) K56.609 Influenza A J10.1 Hypokalemia E87.6 Abnormal urinalysis R82.90
[2021-09-26 08:02] LABS: Albumin Globulin Ratio 0.5 (0.9-2); Albumin Level 2.2 gm/dl (3.4-5.0); BUN Creatinine Ratio 22.1 (10-20); Calcium 8.3 mg/dl (8.5-10.1); Creatinine Clr Calc Pharmacy 93.7 ml/min; Est GFR (African American) 110.3 ml/min; Est GFR (Non-African American) 95.2 ml/min; Globulin 4.7 gm/dl (2.5-4.0); Phosphorus 3.2 mg/dl (2.5-4.9); Total Protein 6.9 gm/dl (6.4-8.2)
--- NOTE | 2021-09-26 08:17 | Surgery Progress Note ---
Date of Service September 26, 2021 Assessment & Plan (1) Diverticulitis small intestine: Plan: labs stable, afebrile RUQ U/S--no gallstones keep NPO for now, cont abx Admission and Anticipated Discharge Date Admission Date: September 25, 2021 Supervising Physician Co-Signing Physician Notes I personally saw and evaluated the patient with Marck Pike PA-C and agree with the assessment and plan. 56-year-old male with small bowel diverticulitis His abdominal pain is improved, he has no leukocytosis and no fever We will trial clear liquids today We will keep him on IV antibiotics for now We will follow along Subjective feels about the same Physical Exam Gastrointestinal (Abdomen): Inspection/Auscultation: abdomen not distended Percussion/Palpation: + abdomen tender (less) and abdomen soft Results & Data ([facility]) Vital Signs (Past 12 Hours) Vital Signs Temp Pulse Pulse Resp BP BP BP 09/26/21 07:55 36.8 C 61 16 129/75 09/25/21 23:15 36.6 C 58 L 16 142/87 H 09/25/21 22:30 78 19 09/25/21 22:00 62 21 128/89 09/25/21 21:34 63 25 H Pulse Ox 09/26/21 07:55 95 09/25/21 23:15 94 09/25/21 22:30 94 09/25/21 22:00 93 09/25/21 21:34 95 PG Care Time/CCT Total # of Minutes Spent Total Time Spent with Patient: Total time spent is greater than 50% in coordination of care (as documented) at patient's floor/unit and/or counseling patient: Coding Level of Care Code 00533 Subseq Hosp Care Lvl 1 Diagnoses Diverticulitis small intestine K57.12
[2021-09-26] MEDS: D5W AND 1/2NSS + 20MEQ KCL 20 MEQ/1,000 ML BAG IV SCH ×2 (09:21→22:51)
[2021-09-26 13:38] LABS: BUN Creatinine Ratio 20.4 (10-20); Calcium 8.5 mg/dl (8.5-10.1); Creatinine Clr Calc Pharmacy 94.8 ml/min; Est GFR (African American) 111.8 ml/min; Est GFR (Non-African American) 96.5 ml/min; Magnesium 2.3 mg/dl (1.8-2.4); Potassium 3.8 mmol/L (3.5-5.1)
[2021-09-27] MEDS: PIPERACILLIN/TAZOBACTAM 3.375 GM in DEXTROSE 5% 100 ML IV SCH ×3 (06:11→23:59)
[2021-09-27 07:29] LABS: Creatinine Clr Calc Pharmacy 96.9 ml/min; Est GFR (African American) 112.9 ml/min; Est GFR (Non-African American) 97.4 ml/min
--- NOTE | 2021-09-27 08:21 | Hospitalist Progress Note ---
Date of Service September 27, 2021 Assessment & Plan (1) Diverticulitis small intestine: Plan: With contained perforation with fluid collection -- felt to have perforated x 1 week ago, now contained General surgery on consult (RUQ obtained for concerns choledocholithiasis? no CBD dilation --> negative for acute osmar) Continue ZOsyn IV Continue IVF to D5 1/2NS + K @ 125cc/hr WBC wnl, afebrile Advanced to full liquids today, moving bowels Per general surgery, possible advancement to low fiber tomorrow and if tolerates, d/c on PO abx for total 14 days. Will need outpatient c-scope and repeat CT to ensure resolution Antiemetics with zofran, pain control with morphine prn If clinically deteriorates, develops pyrexia, tachycardia, increased pain, leukocytosis, may need surgical exploration Follow CBC, CMP, magnesium, phosphorus and replete electrolytes as needed (2) SBO (small bowel obstruction): Plan: Ruled out as per surgery as above (3) Influenza A: Plan: Seems to be significantly improved with his symptoms of influenza A which started on He is outside the window for using Tamiflu Supportive care Isolation precautions Stable on room air (4) Hypokalemia: Plan: Secondary to poor p.o. intake Replace with IV potassium chloride 40 mEq Resolved on AM labs Continued replacement in IVF and remains stable Monitor labs (5) Abnormal urinalysis: Plan: Seems more consistent with contamination Urine culture is pending but would not treat for UTI --> urine cx without acute infection Already on Zosyn as above Plan: DVT prophylaxis-SCDs, avoid anticoagulation in case of need for surgery== encouraged ambulation Continued inpatient stay, possible advancement of diet tomorrow and discharge if continues to do well Admission and Anticipated Discharge Date Admission Date: September 25, 2021 Subjective patient evaluated this morning tolerated clear liquids without pain yesterday no fever or elevated WBC moved bowels -- somewhat formed but loose, no blood or darkened appearance seen by surgery this AM and just advanced to full liquid if continues to tolerate, possible advancement to low fiber and d/c tomorrow on 2 weeks of PO antibiotics with outpatient c-scope and repeat imaging to ensure resolution. no fever, chills, chest pain, shortness of breath, abdominal pain, nausea or vomiting at this time. Review of Systems Review of Systems: All systems reviewed & are unremarkable except as noted in HPI & below Physical Exam Constitutional: WD/WN, vitals as above Eyes: PERRL, conjunctivae normal, anicteric sclerae ENMT: external ear and nose normal, oropharynx normal Neck: trachea midline, no thyromegaly Respiratory: normal respiratory effort, lungs clear to auscultation Cardiovascular: RRR, no murmur, no edema Chest (Breasts): Chest: normal inspection of chest Gastrointestinal (Abdomen): Inspection/Auscultation: abdomen normal to inspection and normal bowel sounds; abdomen not distended Percussion/Palpation: abdomen soft; abdomen nontender Musculoskeletal: Extremities: extremities normal to inspection; no cyanosis and no clubbing Skin: no rashes, warm and dry Neurologic: moves all extremities and awake; no focal motor deficits Psychiatric: A+Ox3, euthymic affect Lymphatic: no lymphedema Results & Data Results & Data ([facility]) Vital Signs (Past 12 Hours) Vital Signs Temp Pulse Resp BP Pulse Ox 09/27/21 07:52 36.9 C 58 L 16 132/83 95 09/26/21 22:27 37.0 C 55 L 16 130/80 96 Laboratory Results 09/27/21 09/27/21 09/27/21 Range/Units 05:40 05:40 05:36 WBC 7.74 (4.8-10.8) K/uL RBC 4.09 L (4.7-6.1) M/uL Hgb 12.7 L (14.0-18.0) g/dL Hct 37.8 L (42-52) % MCV 92.4 (80-100) fL MCH 31.1 (25-34) pg MCHC 33.6 (32-36) g/dL RDW Std Deviation 44.9 (36.4-46.3) fL RDW Coeff of Dhaval 13.2 (11.5-14.5) % Plt Count 320 (130-400) K/uL MPV 9.7 (7.4-10.4) fL Immature Gran % (Auto) 0.5 % Neut % (Auto) 52.5 % Lymph % (Auto) 31.3 % [place] % (Auto) 11.0 % Eos % (Auto) 4.4 % Baso % (Auto) 0.3 % Neut # (Auto) 4.07 (1.4-6.5) K/uL Lymph # (Auto) 2.42 (1.2-3.4) K/uL [place] # (Auto) 0.85 H (0.11-0.59) K/uL Eos # (Auto) 0.34 (0-0.5) K/uL Baso # (Auto) 0.02 (0-0.2) K/uL Immature Gran # (Auto) 0.04 H (0.00-0.02) K/uL Sodium Cancelled 138 (136-145) mmol/L Potassium Cancelled 3.8 (3.5-5.1) mmol/L Chloride Cancelled 106 (98-107) mmol/L Carbon Dioxide Cancelled 23 (21-32) mmol/L Anion Gap Cancelled 9.0 (3-11) BUN Cancelled 13 (7-18) mg/dl Creatinine Cancelled 0.88 (0.6-1.4) mg/dl Est Cr Clr Drug Dosing Cancelled 96.9 ml/min Est GFR ( Amer) Cancelled 112.9 ml/min Est GFR (Non-Af Amer) Cancelled 97.4 ml/min BUN/Creatinine Ratio Cancelled 14.4 (10-20) Glucose Cancelled 104 H (70-99) mg/dl Calcium Cancelled 8.3 L (8.5-10.1) mg/dl Magnesium Cancelled 2.1 (1.8-2.4) mg/dl Total Bilirubin Cancelled 0.7 (0.2-1) mg/dl AST Cancelled 8 L (15-37) U/L ALT Cancelled 17 (12-78) U/L Alkaline Phosphatase Cancelled 52 (45-117) U/L Total Protein Cancelled 6.4 (6.4-8.2) gm/dl Albumin Cancelled 2.2 L (3.4-5.0) gm/dl Globulin Cancelled 4.2 H (2.5-4.0) gm/dl Albumin/Globulin Ratio Cancelled 0.5 L (0.9-2) PG Care Time/CCT Total # of Minutes Spent Total Time Spent with Patient: Total time spent is greater than 50% in coordination of care (as documented) at patient's floor/unit and/or counseling patient: Coding Level of Care Code 14481 Subseq Hosp Care Lvl 2 Diagnoses Diverticulitis small intestine K57.12 SBO (small bowel obstruction) K56.609 Influenza A J10.1 Hypokalemia E87.6 Abnormal urinalysis R82.90
[2021-09-27 08:50] LABS: Basophils # (auto) 0.02 K/uL (0-0.2); Basophils % (auto) 0.3 %; Eosinophils # (auto) 0.34 K/uL (0-0.5); Eosinophils % (auto) 4.4 %; Hematocrit (blood only) 37.8 % (42-52); Hemoglobin 12.7 g/dL (14.0-18.0); Immature Granulocytes # (auto) 0.04 K/uL (0.00-0.02); Immature Granulocytes % (auto) 0.5 %; Lymphocytes # (auto) 2.42 K/uL (1.2-3.4); Lymphocytes % (auto) 31.3 %; Mean Corpuscular Hemoglobin 31.1 pg (25-34); Mean Corpuscular Hgb Conc 33.6 g/dL (32-36); Mean Corpuscular Volume 92.4 fL (80-100); Mean Platelet Volume 9.7 fL (7.4-10.4); Monocytes # (auto) 0.85 K/uL (0.11-0.59); Neutrophils # (auto) 4.07 K/uL (1.4-6.5); Neutrophils % (auto) 52.5 %; Platelet Count 320 K/uL (130-400); RDW Coefficient of Variation 13.2 % (11.5-14.5); RDW Standard Deviation 44.9 fL (36.4-46.3); Red Blood Count 4.09 M/uL (4.7-6.1); White Blood Count 7.74 K/uL (4.8-10.8)
[2021-09-27 09:00] LABS: Potassium 3.8 mmol/L (3.5-5.1)
[2021-09-27 09:06] LABS: Albumin Level 2.2 gm/dl (3.4-5.0); BUN Creatinine Ratio 14.4 (10-20); Calcium 8.3 mg/dl (8.5-10.1); Magnesium 2.1 mg/dl (1.8-2.4)
--- NOTE | 2021-09-27 09:10 | Surgery Progress Note ---
Date of Service September 27, 2021 Assessment & Plan (1) Diverticulitis small intestine: Plan: full liquids continue IV abx another 24 hours low fiber tomorrow if doing ok then home on 2 weeks po abx seen with Dr. Handley Admission and Anticipated Discharge Date Admission Date: September 25, 2021 Subjective feeling better, tolerating clears, minimal pain, no fevers Physical Exam Gastrointestinal (Abdomen): Inspection/Auscultation: abdomen normal to inspection and + abdomen distended Percussion/Palpation: abdomen soft; abdomen nontender Results & Data ([facility]) Vital Signs (Past 12 Hours) Vital Signs Temp Pulse Resp BP Pulse Ox 09/27/21 07:52 36.9 C 58 L 16 132/83 95 09/26/21 22:27 37.0 C 55 L 16 130/80 96 PG Care Time/CCT Total # of Minutes Spent Total Time Spent with Patient: Total time spent is greater than 50% in coordination of care (as documented) at patient's floor/unit and/or counseling patient: Coding Level of Care Code 48135 Subseq Hosp Care Lvl 1 Diagnoses Diverticulitis small intestine K57.12
[2021-09-27 09:12] LABS: Albumin Globulin Ratio 0.5 (0.9-2); Bilirubin,Total 0.7 mg/dl (0.2-1); Globulin 4.2 gm/dl (2.5-4.0); Total Protein 6.4 gm/dl (6.4-8.2)
[2021-09-27] MEDS: D5W AND 1/2NSS + 20MEQ KCL 20 MEQ/1,000 ML BAG IV SCH ×3 (11:46→21:10)
[2021-09-28] MEDS: PIPERACILLIN/TAZOBACTAM 3.375 GM in DEXTROSE 5% 100 ML IV SCH (05:12)
[2021-09-28] MEDS: D5W AND 1/2NSS + 20MEQ KCL 20 MEQ/1,000 ML BAG IV SCH (05:12)
[2021-09-28 07:01] LABS: Hematocrit (blood only) 36.8 % (42-52); Mean Corpuscular Hemoglobin 30.2 pg (25-34); Mean Corpuscular Hgb Conc 32.6 g/dL (32-36); Mean Corpuscular Volume 92.5 fL (80-100); Mean Platelet Volume 9.5 fL (7.4-10.4); Platelet Count 357 K/uL (130-400); RDW Coefficient of Variation 13.1 % (11.5-14.5); RDW Standard Deviation 44.7 fL (36.4-46.3); Red Blood Count 3.98 M/uL (4.7-6.1); White Blood Count 8.31 K/uL (4.8-10.8)
[2021-09-28 08:14] LABS: Albumin Globulin Ratio 0.6 (0.9-2); Albumin Level 2.2 gm/dl (3.4-5.0); BUN Creatinine Ratio 7.6 (10-20); Bilirubin,Total 0.7 mg/dl (0.2-1); Calcium 8.5 mg/dl (8.5-10.1); Creatinine Clr Calc Pharmacy 88.8 ml/min; Est GFR (African American) 103.4 ml/min; Est GFR (Non-African American) 89.3 ml/min; Globulin 3.9 gm/dl (2.5-4.0); Potassium 3.7 mmol/L (3.5-5.1); Total Protein 6.1 gm/dl (6.4-8.2)
--- NOTE | 2021-09-28 08:24 | Hospitalist Progress Note ---
Date of Service September 28, 2021 Assessment & Plan Admission and Anticipated Discharge Date Admission Date: September 25, 2021 Results & Data Results & Data ([facility]) Vital Signs (Past 12 Hours) Vital Signs Temp Pulse Resp BP Pulse Ox 09/28/21 07:49 37.0 C 57 L 16 128/79 96 09/27/21 23:10 37.0 C 54 L 15 124/81 95 Laboratory Results 09/28/21 09/28/21 09/27/21 Range/Units 05:36 05:36 05:40 WBC 8.31 (4.8-10.8) K/uL RBC 3.98 L (4.7-6.1) M/uL Hgb 12.0 L (14.0-18.0) g/dL Hct 36.8 L (42-52) % MCV 92.5 (80-100) fL MCH 30.2 (25-34) pg MCHC 32.6 (32-36) g/dL RDW Std Deviation 44.7 (36.4-46.3) fL RDW Coeff of Dhaval 13.1 (11.5-14.5) % Plt Count 357 (130-400) K/uL MPV 9.5 (7.4-10.4) fL Immature Gran % (Auto) % Neut % (Auto) % Lymph % (Auto) % [place] % (Auto) % Eos % (Auto) % Baso % (Auto) % Neut # (Auto) (1.4-6.5) K/uL Lymph # (Auto) (1.2-3.4) K/uL [place] # (Auto) (0.11-0.59) K/uL Eos # (Auto) (0-0.5) K/uL Baso # (Auto) (0-0.2) K/uL Immature Gran # (Auto) (0.00-0.02) K/uL Sodium 138 Cancelled (136-145) mmol/L Potassium 3.7 Cancelled (3.5-5.1) mmol/L Chloride 107 Cancelled (98-107) mmol/L Carbon Dioxide 25 Cancelled (21-32) mmol/L Anion Gap 6.0 Cancelled (3-11) BUN 7 D Cancelled (7-18) mg/dl Creatinine 0.96 Cancelled (0.6-1.4) mg/dl Est Cr Clr Drug Dosing 88.8 Cancelled ml/min Est GFR ( Amer) 103.4 Cancelled ml/min Est GFR (Non-Af Amer) 89.3 Cancelled ml/min BUN/Creatinine Ratio 7.6 L Cancelled (10-20) Glucose 120 H Cancelled (70-99) mg/dl Calcium 8.5 Cancelled (8.5-10.1) mg/dl Magnesium Cancelled (1.8-2.4) mg/dl Total Bilirubin 0.7 Cancelled (0.2-1) mg/dl AST 7 L Cancelled (15-37) U/L ALT 15 Cancelled (12-78) U/L Alkaline Phosphatase 53 Cancelled (45-117) U/L Total Protein 6.1 L Cancelled (6.4-8.2) gm/dl Albumin 2.2 L Cancelled (3.4-5.0) gm/dl Globulin 3.9 Cancelled (2.5-4.0) gm/dl Albumin/Globulin Ratio 0.6 L Cancelled (0.9-2) 09/27/21 09/27/21 Range/Units 05:40 05:36 WBC 7.74 (4.8-10.8) K/uL RBC 4.09 L (4.7-6.1) M/uL Hgb 12.7 L (14.0-18.0) g/dL Hct 37.8 L (42-52) % MCV 92.4 (80-100) fL MCH 31.1 (25-34) pg MCHC 33.6 (32-36) g/dL RDW Std Deviation 44.9 (36.4-46.3) fL RDW Coeff of Dhaval 13.2 (11.5-14.5) % Plt Count 320 (130-400) K/uL MPV 9.7 (7.4-10.4) fL Immature Gran % (Auto) 0.5 % Neut % (Auto) 52.5 % Lymph % (Auto) 31.3 % [place] % (Auto) 11.0 % Eos % (Auto) 4.4 % Baso % (Auto) 0.3 % Neut # (Auto) 4.07 (1.4-6.5) K/uL Lymph # (Auto) 2.42 (1.2-3.4) K/uL [place] # (Auto) 0.85 H (0.11-0.59) K/uL Eos # (Auto) 0.34 (0-0.5) K/uL Baso # (Auto) 0.02 (0-0.2) K/uL Immature Gran # (Auto) 0.04 H (0.00-0.02) K/uL Sodium 138 (136-145) mmol/L Potassium 3.8 (3.5-5.1) mmol/L Chloride 106 (98-107) mmol/L Carbon Dioxide 23 (21-32) mmol/L Anion Gap 9.0 (3-11) BUN 13 (7-18) mg/dl Creatinine 0.88 (0.6-1.4) mg/dl Est Cr Clr Drug Dosing 96.9 ml/min Est GFR ( Amer) 112.9 ml/min Est GFR (Non-Af Amer) 97.4 ml/min BUN/Creatinine Ratio 14.4 (10-20) Glucose 104 H (70-99) mg/dl Calcium 8.3 L (8.5-10.1) mg/dl Magnesium 2.1 (1.8-2.4) mg/dl Total Bilirubin 0.7 (0.2-1) mg/dl AST 8 L (15-37) U/L ALT 17 (12-78) U/L Alkaline Phosphatase 52 (45-117) U/L Total Protein 6.4 (6.4-8.2) gm/dl Albumin 2.2 L (3.4-5.0) gm/dl Globulin 4.2 H (2.5-4.0) gm/dl Albumin/Globulin Ratio 0.5 L (0.9-2) PG Care Time/CCT Total # of Minutes Spent Total Time Spent with Patient: Total time spent is greater than 50% in coordination of care (as documented) at patient's floor/unit and/or counseling patient: Coding
--- NOTE | 2021-09-28 10:07 | Surgery Progress Note ---
Date of Service September 28, 2021 Assessment & Plan (1) Diverticulitis small intestine: Plan: Patient appears to continue to make progress WBC 8. VSS and patient is afebrile Abdomen soft and non tender. + bowel function Tolerating full liquids. Can trial advancing to low fiber for lunch If tolerates can consider potential discharge later today and complete course of po abx at home for a total of 2 weeks Admission and Anticipated Discharge Date Admission Date: September 25, 2021 Supervising Physician Co-Signing Physician Notes I personally saw and evaluated the patient with Heather Hager PA-C and agree with the assessment and plan. 56-year-old male with resolving small bowel diverticulitis His abdominal pain has resolved, he has no leukocytosis and no fever Advance to low fiber diet If tolerates ok to discharge on 2 weeks PO ABX Follow up with surgery in 2 weeks Subjective Patient says he is feeling about the same as yesterday. He tolerated diet advancement to full liquids, no nausea/vomiting. Reports a mild bout of pain last night around 8:30pm while eating ice cream, but did not require pain meds and it went away on its own. He tolerated bfast this AM without issues and is hungry for something more substantial. Physical Exam Physical Exam: awake/alert Gastrointestinal (Abdomen): Inspection/Auscultation: + abdomen distended (mild) Percussion/Palpation: abdomen soft; abdomen nontender Results & Data ([facility]) Vital Signs (Past 12 Hours) Vital Signs Temp Pulse Resp BP Pulse Ox 09/28/21 07:49 37.0 C 57 L 16 128/79 96 09/27/21 23:10 37.0 C 54 L 15 124/81 95 PG Care Time/CCT Total # of Minutes Spent Total Time Spent with Patient: Total time spent is greater than 50% in coordination of care (as documented) at patient's floor/unit and/or counseling patient: Coding Level of Care Code 13008 Subseq Hosp Care Lvl 1 Diagnoses Diverticulitis small intestine K57.12
--- NOTE | 2021-09-28 12:25 | Discharge Summary ---
Date of Service September 28, 2021 Admission HPI Per Admitting Provider This patient is a 56-year-old male with a past medical history of depression and cigarette smoking, who presents to the ER with abdominal pain and upper respiratory symptoms ongoing for the last 5 days. He reports cough and congestion, diffuse myalgias and epigastric abdominal pain. He reports on Saturday of last week that he all of a sudden had fairly significant epigastric pain that doubled him over. He laid in bed and by the next day the pain was improved, however he then had fevers and chills and myalgias as above. His epigastric abdominal pain since that time has remained constant but not severe. He has no further fevers or chills since that day. He has been having some loose stools last few days, but no nausea or vomiting. His appetite has been very low and he has not had much p.o. intake at all. In the ER, his CBC was unremarkable, he had hypokalemia, LFTs and lipase normal, troponin negative, and UA with more epithelial cells and WBCs and 20-30 granular casts. He was found on CT abdomen/pelvis to have a bowel perforation with possible high-grade small bowel obstruction and contained abscess/fluid collection measuring 8.4 x 3.3 x 9.0 cm. General surgery saw the patient the ER and thought it was consistent with small bowel diverticulitis with perforation and contained perforation-they recommended that the hospitalist service admit the patient for IV antibiotics, but that if had worsening abdominal pain, leukocytosis, pyrexia, or tachycardia then he would require surgical exploration. There is also question of cholelithiasis on his CT scan and right upper quadrant ultrasound was ordered. Also, he was found to be positive for influenza A. A chest x-ray was negative for acute disease. He was given IV Toradol, IV Zosyn, 1 L of normal saline, and IV Zofran in the ER. Admission Exam Per Admitting Provider Constitutional: WD/WN, vitals as above Eyes: PERRL, conjunctivae normal, anicteric sclerae ENMT: external ear and nose normal, oropharynx normal Neck: trachea midline, no thyromegaly With scar from previous tracheostomy Respiratory: normal respiratory effort, lungs clear to auscultation Cardiovascular: RRR, no murmur, no edema Chest (Breasts): Chest: normal inspection of chest Gastrointestinal (Abdomen): Inspection/Auscultation: abdomen normal to inspection and normal bowel sounds; abdomen not distended Percussion/Palpation: + abdomen tender (Mild in epigastric region without guarding or rebound) and abdomen soft Musculoskeletal: Extremities: extremities normal to inspection; no cyanosis and no clubbing Skin: no rashes, warm and dry Neurologic: moves all extremities and awake; no focal motor deficits Psychiatric: A+Ox3, euthymic affect Lymphatic: no lymphedema Principal Diagnosis Diverticulitis of small intestine with Abscess Discharge Exam Constitutional WD/WN, vitals as above Eyes PERRL, conjunctivae normal, anicteric sclerae ENMT external ear and nose normal, oropharynx normal Neck trachea midline, no thyromegaly prior tracheostomy scar Respiratory normal respiratory effort, lungs clear to auscultation Cardiovascular RRR, no murmur, no edema Gastrointestinal (Abdomen) Inspection/Auscultation: normal bowel sounds; abdomen not distended Percussion/Palpation: abdomen soft; abdomen nontender Musculoskeletal Extremities: extremities normal to inspection; no cyanosis and no clubbing Skin no rashes, warm and dry Neurologic moves all extremities and awake; no focal motor deficits Psychiatric A+Ox3, euthymic affect Lymphatic no lymphedema Discharge Data Allergies Allergy/AdvReac Type Severity Reaction Status Date / Time No Known Allergies Allergy Mild Verified 09/25/21 11:02 Consultations 09/25/21 13:41 Consult General Surgery Stat 09/25/21 22:32 Consult Hospitalist Routine Ordered Studies Abdomen/Pelvis CT 09/25/21 10:39 CT abd pelvis IV con only CLINICAL HISTORY: epi abd pain COMPARISON STUDY: 03/25/2016 CT DOSE: 316.21 mGy.cm TECHNIQUE: Standard CT of the Abdomen and Pelvis was performed with IV contrast. A dose lowering technique was utilized adhering to the principles of ALARA. Contrast Volume: Optiray 320, 95 ml. The patient did not receive oral contrast. FINDINGS: Lung base: The lung bases are clear. Abdominal cavity and bowel: There is evidence for dilated loops of small bowel/jejunum in the left upper quadrant with what appears to be a high-grade, partial closed loop obstruction. Prominent mucosal thickening and edematous changes are present. There is perforation of the small bowel at this site with a abscess present in the left upper quadrant. Extraluminal air is seen within the fluid collection with no free air identified. This abnormal fluid collection measures approximately 8.4 x 3.3 x 9.0 cm in transverse, AP and craniocaudad dimensions respectively. The more distal small bowel loops are decompressed. The colon is of normal caliber. There is no evidence for free abdominal ascites. There is no evidence for adenopathy. Liver: There is homogeneous attenuation of the liver parenchyma. There is no evidence for enhancing mass lesion. Spleen: There is homogeneous attenuation of the splenic parenchyma. There is no enhancing mass lesion. Pancreas: There is homogeneous attenuation of the pancreatic parenchyma. There is no evidence for mass lesion or peripancreatic fluid collection. Gall Bladder: The gallbladder is well distended with suspicion of cholelithiasis. Gallbladder ultrasound would be the study of choice for further evaluation. Adrenal glands: The adrenal glands are normal in size and attenuation. There is no evidence for enhancing mass lesion. Kidneys: There is homogeneous attenuation of the renal parenchyma bilaterally. There is no evidence for renal calculus or hydronephrosis. There is no evidence for enhancing mass. Bladder: The bladder is within normal limits with no evidence for focal mass, calculus or diverticulum. : There is no evidence for pelvic mass or adenopathy. There is no evidence for pelvic ascites. The prostate is mildly enlarged. Vasculature: There is no evidence for aneurysmal dilatation of the abdominal aorta. IVC filter is in place. Osseous structures: There is no acute osseous pathology. IMPRESSION: 1. Evidence for a high-grade, partial closed-loop small bowel obstruction of left upper quadrant most likely involving the jejunum. There is perforation of small bowel with localized fluid collection and extraluminal air most characteristic of an abscess. No free intraperitoneal air is identified. 2. Suspicion of choledocholithiasis. 3. Additional nonacute findings are delineated above. ACT 112: Negative or not required by law. Electronically signed by: Raz Reaves M.D. 09/25/2021 1:21 PM Chest X-Ray 09/25/21 10:39 XR chest 1V portable CLINICAL HISTORY: Chest Pain. COMPARISON STUDY: 03/13/2018 TECHNIQUE: 1 view of the chest FINDINGS: Single frontal view of the chest demonstrates the cardiomediastinal silhouette to be within normal limits. The lungs are clear of alveolar opacities. There is no evidence for pleural effusion. There is no evidence for vascular congestion. There is no acute osseous pathology. IMPRESSION: No acute cardiopulmonary disease. ACT 112: Negative or not required by law. Electronically signed by: Raz Reaves M.D. 09/25/2021 11:23 AM Abdomen Ultrasound 09/25/21 14:58 ULTRASOUND RIGHT UPPER QUADRANT ABDOMEN CLINICAL HISTORY: Epigastric abdominal pain. COMPARISON STUDY: Abdominal CT dated 09/25/2021. TECHNIQUE: Real-time, grayscale, and color flow sonography of the right upper quadrant of the abdomen was performed. Images are reviewed in the transverse and longitudinal planes. FINDINGS: Liver: The liver is normal in size and echotexture. There is no intrahepatic biliary ductal dilatation. The main portal vein is patent. Gallbladder: The gallbladder is normal in appearance. No gallstones are identified. There is no gallbladder wall thickening or pericholecystic fluid. A sonographic Martinez's sign is reportedly absent. The common bile duct measures up to 0.5 cm in diameter. Pancreas: Visualized portions of the pancreatic head and body are normal in appearance. The splenic vein is patent. Right kidney: Survey images of the right kidney demonstrate normal size and echotexture. There is no hydronephrosis. Ascites: None. IMPRESSION: Unremarkable sonographic assessment of the right upper quadrant. No gallstones are identified. ACT 112: Negative or not required by law. Electronically signed by: Yon Mathews M.D. 09/25/2021 8:50 PM Hospital Course (1) Diverticulitis small intestine: With contained perforation with fluid collection (abnormal fluid collection measures approximately 8.4 x 3.3 x 9.0 cm involving jejunum) -- felt to have perforated x 1 week ago, now contained per review by surgery and felt no true SBO General surgery on consult -RUQ obtained for concern for cholelithiasis --> negative for acute cholecystitis IVF, antibiotics, pain control, antiemetics while inpatient Zosyn IV while inpatient and patient without further fevers/chills/leukocytosis or increased abd pain with slow advancement of diet to low fiber without issue Discussed with general surgery and ok for d/c on Augmentin x 14 days total treatment and will have f/u in 1-2 weeks to determine need for repeat imaging for resolution. Alerted of red flag symptoms to return to ER for Recommend c-scope as outpatient in follow up with PCP give age >50 and never has had screening one in past (2) SBO (small bowel obstruction): Ruled out as per surgery as above (3) Influenza A: Seems to be significantly improved with his symptoms of influenza A which started on He is outside the window for using Tamiflu Supportive care and isolation precautions while in the hospital No issues while inpatient, stable on RA (4) Hypokalemia: Secondary to poor p.o. intake and was repleted and stayed stable on repeat as diet advanced (5) Abnormal urinalysis: Seems more consistent with contamination and urine cx FINAL with low counts of probable skin frank Discharged home on Augmentin to complete 14 days F/u general surgery and PCP in next 1-2 weeks Advance diet as tolerated over next two weeks Total Time Total Time Spent Total Time Spent (In Minutes): 35 Discharge Plan Discharge Items Patient Disposition: Home - Self-Care Reason For Visit: SBO WITH PERFORATION, INFLUENZA A Discharge Diagnosis: Diverticulitis with Abscess, Influenza A Goals: You have been hospitalized for an acute medical problem. During your stay at [facility], we have made an effort to correct the problem that brought you to the hospital while keeping you as comfortable as possible. Medications were used to bring your condition under control and your discharge instructions will include directions for any medications you should take after leaving the hospital. Please make sure you see your Primary Care Provider as part of your follow up plan. Activity: Resume your previous activity Non-emergency contact: Primary Care Provider and Surgeon Call non-emergency contact if: you have any medication questions, your symptoms worsen, your pain is not controlled and you have a fever Follow-up/Referrals: Francisco Alberto DO [Surgeon] - 10/18/21 9:45 am Porter Santo DO [Primary Care Provider] - 10/16/21 10:00 am Diet: Low Fiber Diet Comment: low fiber then advance as tolerated Addtl Attending Provider Instructions: Diverticulitis with Abscess * Imaging was consistent with an abscess which was felt to have occurred last week and thankfully was contained on imaging. * General surgery was consulted and felt no obstruction and this could be managed conservatively with IV fluids, bowel rest, pain control/antiemetics, and IV antibiotics. * You have continued to make improvements, your white count is normal and you have not had any further fevers and your diet was advanced without increased abdominal pain. * You are being sent on Augmentin -- 1 tablet by mouth TWICE daily to complete a total of FOURTEEN days (3 days of IV while inpatient) and you have 11 more days of treatment to complete this course. You were also found to have influenza, but outside of the window for tamiflu and thankfully have been without evidence of secondary pulmonary infection and can continue to stay hydrated and monitor for any worsening pulmonary symptoms, however Augmentin should also help to cover for any possibility of secondary infection. You should continue low fiber diet and monitor for any worsening abdominal pain or fever. If this occurs, please return to the emergency department. Or, for any other symptoms that are concerning for you. Please follow up with general surgery in the next 1-2 weeks to monitor your progress and see if they would like additional imaging to ensure resolution. Please follow up with PCP in the next 7-10 days. It has been a pleasure being a part of the medical team providing for you while you have been in the hospital. Take care! Pending Studies at Discharge: No Stand-Alone Forms: [facility] [employer], Smoking Cessation Medications and DC Order Prescriptions: New amoxicillin-pot clavulanate [Augmentin] 875-125 mg tablet 1 tab PO BID 11 Days Qty: 23 RF: 0 Discharge Orders: Discharge Order (Routine); Ordered 09/28/21 Ordered By: Mignon Brock/Other Patient Handouts: Small Bowel Obstruction, The Flu (Influenza) Admission Data Admit Date/Time: 09/25/21 16:34 Attending Provider: Marisol Larson Admit Provider: Marisol Larson Primary Care Provider: Porter Santo Other Providers: Momo Handley ; Marisol Larson Other Interventions: Discharge Summary Assessment (RN) Last Done: 09/28/21 12:41 Supervising Physician Co-Signing Physician Notes PA Supervision Note: I did not personally see or examine the patient today, but I verified all bolton points of ROCÍO Marsh's assessment and plan with the following exceptions/additions: The patient left the hospital before I had a chance to see him. Agree with plan outlined as above Coding Level of Care Code D/C DAY MANAGEMENT >30 MINS Diagnoses Diverticulitis small intestine K57.12 SBO (small bowel obstruction) K56.609 Influenza A J10.1 Hypokalemia E87.6 Abnormal urinalysis R82.90
== END 2021-09-28 14:38 | disposition home or self-care (01) | DRG 392 ==
LOC: ED 08:54 → SUATTDRO 16:34 → EDINP 16:34 → 3E 22:52

== ENCOUNTER 2021-10-12 06:01 | Inpatient (IN) ==
[2021-10-12] MEDS ORDERED: ONDANSETRON INJ 2 MG/ML 2 ML VIAL IV STA (06:56)
[2021-10-12] MEDS ORDERED: HYDROmorphone INJ 0.5 MG/0.5 ML SYR IV STA (06:56)
[2021-10-12] MEDS ORDERED: SODIUM CHLORIDE 0.9% 1000ML 1,000 ML IV STA (06:56)
[2021-10-12 07:08] LABS: Basophils # (auto) 0.02 K/uL (0-0.2); Basophils % (auto) 0.1 %; Eosinophils # (auto) 0.39 K/uL (0-0.5); Eosinophils % (auto) 2.5 %; Hematocrit (blood only) 45.5 % (42-52); Hemoglobin 15.1 g/dL (14.0-18.0); Immature Granulocytes # (auto) 0.04 K/uL (0.00-0.02); Immature Granulocytes % (auto) 0.3 %; Lymphocytes # (auto) 1.51 K/uL (1.2-3.4); Lymphocytes % (auto) 9.7 %; Mean Corpuscular Hemoglobin 31.3 pg (25-34); Mean Corpuscular Hgb Conc 33.2 g/dL (32-36); Mean Corpuscular Volume 94.4 fL (80-100); Mean Platelet Volume 9.4 fL (7.4-10.4); Monocytes # (auto) 0.52 K/uL (0.11-0.59); Monocytes % (auto) 3.3 %; Neutrophils # (auto) 13.11 K/uL (1.4-6.5); Neutrophils % (auto) 84.1 %; Platelet Count 502 K/uL (130-400); RDW Standard Deviation 44.8 fL (36.4-46.3); Red Blood Count 4.82 M/uL (4.7-6.1); White Blood Count 15.59 K/uL (4.8-10.8)
[2021-10-12] MEDS ORDERED: PIPERACILL/TAZOBAC CONSULT ACTIVE PRN ×2 (07:14→11:28)
[2021-10-12] MEDS ORDERED: PIPERACILLIN/TAZOBACTAM 4.5 GM/120 ML BAG IV ONE (07:14)
[2021-10-12] MEDS ORDERED: ERTAPENEM SODIUM 10 ML IV STA (07:20)
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
[2021-10-12 07:38] LABS: Albumin Level 3.4 gm/dl (3.4-5.0); Calcium 9.4 mg/dl (8.5-10.1); Creatinine Clr Calc Pharmacy 84.7 ml/min
[2021-10-12 07:41] LABS: Albumin Globulin Ratio 0.8 (0.9-2); Bilirubin,Total 0.6 mg/dl (0.2-1); Globulin 4.2 gm/dl (2.5-4.0); Total Protein 7.6 gm/dl (6.4-8.2)
[2021-10-12] MEDS ORDERED: OPTIRAY 320 100ml IV ONE (07:57)
--- NOTE | 2021-10-12 08:21 | XRay Report ---
XR chest 1V portable HISTORY: Generalized abdominal pain. COMPARISON: Chest 09/25/2021. FINDINGS: No pneumothorax. No pleural effusions. The heart is normal in size. Small left basilar line ar densities favor subsegmental atelectasis. Otherwise, the lungs are clear. No pleural effusions. No pneumothorax. IMPRESSION: No acute process. ACT 112: Negative or not required by law. Electronically signed by: Kristian Hamilton M.D. 10/12/2021 8:20 AM
--- NOTE | 2021-10-12 08:48 | CT Scan Report ---
ABDOMEN AND PELVIS CT WITH IV CONTRAST CT DOSE: 535.87 mGycm HISTORY: Generalized abdominal pain. History of bowel obstruction and perforation. TECHNIQUE: Multiaxial CT images of the abdomen and pelvis were performed following the use of intrave nous contrast. A dose lowering technique was utilized adhering to the principles of ALARA. COMPARISON STUDY: Abdomen and pelvis CT 09/25/2021. FINDINGS: Mild dependent changes seen within the lung bases posteriorly. The liver, spleen, pancreas, gallbladder, adrenal glands,, and left kidney are unremarkable. There is a 6 mm exophytic lesion wit hin the right kidney and image 173. This does not clearly represent a simple cyst. This could represe nt a hyperdense cyst or small solid renal mass. No retroperitoneal lymphadenopathy. An IVC filter is in good position. No retroperitoneal lymphadenopathy. The bladder is unremarkable. Colonic diverticul osis. No evidence for acute colonic diverticulitis. Normal appendix. Trace ascites which has develope d in the interval. Again noted are multiple jejunal diverticula. There are a few thickened loops of j ejunum within the left side of the abdomen which are similar to the prior study. There is again noted an area of focal inflammatory change within the left/central mesentery adjacent to multiple jejunal diverticula. This is consistent with phlegmon related to a jejunal diverticulitis. The extraluminal g as has almost completely resolved in the interval. There may be 2 punctate foci of extraluminal gas r emaining on image 201 consistent with microperforation. No loculated fluid collections at this time t o suggest an abscess. A few prominent loops of small bowel favor an ileus. A low-grade partial small bowel obstruction could also have a similar appearance. IMPRESSION: 1. Redemonstration of the jejunal diverticulitis seen within the left/mid abdomen with associated phl egmon and a few punctate foci of extrapleural gas consistent with focal microperforation. This appear s to have overall improved compared to the prior study. No loculated fluid collections at this time t o suggest an abscess. 2. Thickened loops of jejunum within the left side the abdomen which are slightly dilated and fluid-f illed. This favors an ileus. A partial small bowel obstruction could also a similar appearance. 3. Interval development of trace ascites. ACT 112: Negative or not required by law. Electronically signed by: Kristian Hamilton M.D. 10/12/2021 8:46 AM
[2021-10-12 10:25] LABS: Appearance Urine Clear (Clear); Bilirubin Urine Negative (Negative); Blood Urine Negative (Negative); Color Urine Yellow; Glucose Urine UA Negative (Negative); Ketones Urine Negative (Negative); Leukocyte Esterase Urine Negative (Negative); Nitrite Urine Negative (Negative); Protein Urine Negative (Negative); Specific Gravity Urine > 1.045 (1.000-1.030); Urobilinogen Urine Negative (Negative); pH Urine 6.5 (4.5-7.5)
[2021-10-12] MEDS ORDERED: MoRPHine SULFATE 2 MG/ML CARP IV PRN (11:28)
[2021-10-12] MEDS ORDERED: ONDANSETRON INJ 2 MG/ML 2 ML VIAL IV PRN (11:28)
[2021-10-12] MEDS ORDERED: SODIUM CHLORIDE 0.9% 1000ML 1,000 ML IV SCH (11:30)
[2021-10-12] MEDS ORDERED: ACETAMINOPHEN 1000 MG/100 ML IV IV PRN (11:33)
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
[2021-10-12] MEDS ORDERED: TPN/PPN CONSULT PHARMACY STA ×2 (11:49→13:01)
[2021-10-12] MEDS ORDERED: PIPERACILLIN/TAZOBACTAM 3.375 GM in DEXTROSE 5% 100 ML IV STA (12:48)
[2021-10-12] MEDS ORDERED: TPN/PPN CONSULT PHARMACY PRN (12:50)
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
[2021-10-12] MEDS: MoRPHine SULFATE 4 MG/ML 1 ML CARP\\VIAL IV PRN (13:28)
[2021-10-12 13:55] LABS: Magnesium 2.2 mg/dl (1.8-2.4); Phosphorus 2.4 mg/dl (2.5-4.9)
--- NOTE | 2021-10-12 14:44 | Pharmacy Report ---
Pharmacy PN Initial Consult - Date of Service October 12, 2021 - Scope Pharmacy has been consulted to manage parenteral nutrition orders and order appropriate labs. As part of the Nutrition Support Team guidelines, pharmacy will work in conjunction with dietary when determining the patients caloric needs. - Subjective The patient is a 56 year old M admitted on 10/12/21 11:28 for ABDOMINAL PAIN. Patient is to receive parenteral nutrition for jejunal diverticulitis with microperforation, possible ileus - Objective Height: 5 ft 10 in Weight: 73.5 kg Diet: NPO Intake & Output (Last 24Hrs): Intake & Output 10/10/21 10/11/21 10/12/21 10/13/21 06:59 06:59 06:59 06:59 Intake Total 1000 / 1000 Balance 1000 / 1000 Weight 73.5 kg 73.5 kg Laboratory Data (Last 24 Hrs):: 10/12/21 10/12/21 06:10 06:10 Sodium 138 Potassium 4.0 Chloride 104 Carbon Dioxide 31 BUN 16 Creatinine 1.03 Glucose 100 H Calcium 9.4 Phosphorus 2.4 L Magnesium 2.2 Total Bilirubin 0.6 AST 22 ALT 37 Alkaline Phosphatase 81 Albumin 3.4 Triglycerides 94 Nutrition Assessment:: Please refer to the Notes section of the EMR for the most recent mixer diamond powder note. - Assessment Enedina is a 56 yo male admitted with jejunal diverticulitis with microperforation and possible ileus. * Consulted by surgery for initiation of PN. * Currently 2L standard PPN formulation is unavailable, therefore a 1 L with lipids will be provided for day 1. * Obtained order to infuse D5 @ 42 mL/hr in addition to PN to provide additional calories and fluid. - Plan For day 1 of PN administration, the following will be ordered: Macronutrients Amino acids 43 grams/day Dextrose 50 grams/day Lipids 50 grams/day Micronutrients Combined electrolytes 20 mL - contains 35 mEq Na, 20 meq K, 4.5 mEq Ca, 5 mEq Mg, 35 mEq Cl, 29.5 mEq acetate per 20 mL Sodium chloride 20 mEq Potassium phosphate 27 mMol Multivitamins 10 mL Trace Elements 1 mL Additional additives: famotidine 40 mg Total volume 1060 mL to be infused over 24 hrs will provide 840 kcal/day Final osmolarity 860.84 mOsm/L (maximum for PPN is 900 mOsm/L) Labs to be ordered per PN order protocol Pharmacy will follow and adjust parenteral nutrition orders on a daily basis. Thank you.
[2021-10-12] MEDS ORDERED: PERIPHERAL TPN IV SCH (16:00)
[2021-10-12] MEDS ORDERED: D5W IV SCH (16:00)
[2021-10-12] MEDS ORDERED: CLINOLIPID 20% IV FAT EMULSION 250 ML IV SCH (16:00)
[2021-10-12] MEDS ORDERED: DEXTROSE 10% 1,000 ML IV PRN (16:00)
[2021-10-12] MEDS ORDERED: AMINO ACIDS 4.25% IV SCH (16:00)
[2021-10-12] MEDS: DEXTROSE 5% 1,000 ML IV SCH (16:52)
[2021-10-12] MEDS: AMINO ACIDS 4.25% IV SCH (16:55)
[2021-10-12] MEDS: PERIPHERAL TPN IV SCH (16:55)
[2021-10-12] MEDS: D5W IV SCH (16:55)
[2021-10-12] MEDS: PIPERACILLIN/TAZOBACTAM 3.375 GM in DEXTROSE 5% 100 ML IV SCH (18:34)
[2021-10-12] MEDS ORDERED: STOP CLINOLIPID ONE (22:00)
[2021-10-13] MEDS: PIPERACILLIN/TAZOBACTAM 3.375 GM in DEXTROSE 5% 100 ML IV SCH ×3 (02:43→17:43)
[2021-10-13] MEDS: MoRPHine SULFATE 4 MG/ML 1 ML CARP\\VIAL IV PRN (06:18)
[2021-10-13] MEDS ORDERED: HYDROmorphone INJ 0.5 MG/0.5 ML SYR IV PRN (06:23)
[2021-10-13 07:40] LABS: Basophils # (auto) 0.02 K/uL (0-0.2); Basophils % (auto) 0.2 %; Eosinophils # (auto) 0.47 K/uL (0-0.5); Eosinophils % (auto) 4.6 %; Hematocrit (blood only) 40.3 % (42-52); Hemoglobin 13.3 g/dL (14.0-18.0); Immature Granulocytes # (auto) 0.02 K/uL (0.00-0.02); Immature Granulocytes % (auto) 0.2 %; Lymphocytes % (auto) 15.5 %; Mean Corpuscular Hemoglobin 30.7 pg (25-34); Mean Corpuscular Volume 93.1 fL (80-100); Mean Platelet Volume 9.2 fL (7.4-10.4); Monocytes % (auto) 6.8 %; Neutrophils # (auto) 7.49 K/uL (1.4-6.5); Neutrophils % (auto) 72.7 %; Platelet Count 402 K/uL (130-400); RDW Coefficient of Variation 13.1 % (11.5-14.5); RDW Standard Deviation 44.7 fL (36.4-46.3); Red Blood Count 4.33 M/uL (4.7-6.1)
--- NOTE | 2021-10-13 07:53 | Hospitalist Progress Note ---
Date of Service October 13, 2021 Assessment & Plan (1) Diverticulitis small intestine: Plan: Mr. Kothari is a 56 year old male with a history of Closed Head Injury 2007 with prior tracheostomy and IVC filter, Depression, Jejeunal Diverticulitis, and Tobacco Use who was hospitalized at [facility] from 09/25/21 through 09/28/21 for jejunal diverticulitis with microperforation and abscess (PRIOR abn fluid collection on imaging at that time 8.4x3.3x9.0cm in transverse). Patient was discharged from the hospital on 09/28/21 tolerating advancements in his diet, afebrile, without pain, and no leukocytosis. He completed a 2 week course of Augmentin yesterday. 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 Patient just completed a 2 week course of Augmentin 10/11/21. WBC at PCP check elevated at 11, of note. CT A/P * "re-demonstration of the jejunal diverticulitis seen within the left/mid abdomen with associated phlegmon and a few punctate foci of extrapleural gas consistent with focal microperforation. This appears to have overall improved compared to the prior study. No loculated fluid collections at this time to suggest an abscess. There are thickened loops of jejunum concerning for ileus." Pain control -- just got dose of morphine On PPN per surgery Temp 37.8 10/12 Continue IV ZOsyn (day 2)-- of note, no bcx drawn on admissoin WBC improving, now wnl 10.3k from 15.5k on admit no further temps ID consult pending -- awaiting input but likely will need continued IV abx at d/c given he just completed course of Augmentin as prescribed at d/c last admission Last normal BM 10/11 but states is passing gas --> per discussion with surgery as notes say clear liquids, will continue bowel rest and NPO through today prior to any advancement Continue to monitor labs/electrolyte replacement as needed Per surgery, plans for repeat imaging on Saturday. Dr Nelson covering through the weekend. (2) Ileus: Plan: -- Manage as outlined above. (3) Perforated diverticulum: Plan: -- Manage as outlined above. Plan: DVT prophylaxis --> SCDs ordered. Will check with surgery about chemoprophylaxis vs encouraged ambulation --> Discussed with Dr. Shin and will place patient on Lovenox SQ, first dose now Disposition -continued stay, hospital service will follow along for now Admission and Anticipated Discharge Date Admission Date: October 12, 2021 Supervising Physician Co-Signing Physician Notes Attending Attestation - Chart reviewed in detail, care plan d/w PA Mignon Marsh. I agree w/ the bolton components of her documentation. Migel Martin MD Subjective patient evaluated this morning resting in bed with lights off and was just medicated for pain hadn't been passing gas but is passing gas today. notes from surgery state clear liquids but patient remains NPO. will discuss with surgery team. he states pain moreso located in epigastric region today without reflux symptoms or much in the way of radiation awaiting ID consultation but expecting continued IV antibiotics and likely need for at least US guided IV. Plans for repeating Ct on saturday to re-eval. no fever, chills, chest pain, nausea or vomiting at this time. Review of Systems Review of Systems: All systems reviewed & are unremarkable except as noted in HPI & below Physical Exam Constitutional: WD/WN, vitals as above Eyes: + anicteric sclerae and PERRL ENMT: Ears: no hearing impairment slightly dry mm Neck: prior tracheostomy scar, trachea midline without deviation Respiratory: normal respiratory effort, lungs clear to auscultation Cardiovascular: RRR, no murmur, no edema Gastrointestinal (Abdomen): +BS, hypoactive, soft, voluntary guarding to palpation of epigastric region, no rebound/rigidity Musculoskeletal: moves all extremities Skin: warm, dry Neurologic: PERRL, EOMI, accommodation nl, no face palsy, no dysarthria Psychiatric: A+Ox3, euthymic affect Results & Data Results & Data ([facility]) Vital Signs (Past 12 Hours) Vital Signs Temp Pulse Resp BP Pulse Ox 10/13/21 07:13 37.4 C 70 16 125/74 94 10/13/21 00:05 37.4 C 69 16 117/82 94 Laboratory Results 12/17/21 12/17/21 12/17/21 Range/Units 07:01 07:01 05:47 WBC 10.30 (4.8-10.8) K/uL RBC 4.33 L (4.7-6.1) M/uL Hgb 13.3 L (14.0-18.0) g/dL Hct 40.3 L (42-52) % MCV 93.1 (80-100) fL MCH 30.7 (25-34) pg MCHC 33.0 (32-36) g/dL RDW Std Deviation 44.7 (36.4-46.3) fL RDW Coeff of Dhaval 13.1 (11.5-14.5) % Plt Count 402 H (130-400) K/uL MPV 9.2 (7.4-10.4) fL Immature Gran % (Auto) 0.2 % Neut % (Auto) 72.7 % Lymph % (Auto) 15.5 % Cloud % (Auto) 6.8 % Eos % (Auto) 4.6 % Baso % (Auto) 0.2 % Neut # (Auto) 7.49 H (1.4-6.5) K/uL Lymph # (Auto) 1.60 (1.2-3.4) K/uL Cloud # (Auto) 0.70 H (0.11-0.59) K/uL Eos # (Auto) 0.47 (0-0.5) K/uL Baso # (Auto) 0.02 (0-0.2) K/uL Immature Gran # (Auto) 0.02 (0.00-0.02) K/uL Sodium 135 L (136-145) mmol/L Potassium 4.2 (3.5-5.1) mmol/L Chloride 103 (98-107) mmol/L Carbon Dioxide 27 (21-32) mmol/L Anion Gap 5.0 (3-11) BUN 11 (7-18) mg/dl Creatinine 0.95 (0.6-1.4) mg/dl Est Cr Clr Drug Dosing 90.5 ml/min Est GFR ( Amer) 104.8 ml/min Est GFR (Non-Af Amer) 90.4 ml/min BUN/Creatinine Ratio 11.6 (10-20) Glucose 122 H (70-99) mg/dl POC Glucose 121 H (70-99) mg/dl Calcium 8.7 (8.5-10.1) mg/dl Phosphorus 3.2 (2.5-4.9) mg/dl Magnesium 2.2 (1.8-2.4) mg/dl Triglycerides (0-150) mg/dl Urine Color Urine Appearance (Clear) Urine pH (4.5-7.5) Ur Specific Thebes (1.000-1.030) Urine Protein (Negative) Urine Glucose (UA) (Negative) Urine Ketones (Negative) Urine Blood (Negative) Urine Nitrite (Negative) Urine Bilirubin (Negative) Urine Urobilinogen (Negative) Ur Leukocyte Esterase (Negative) 10/13/21 10/12/21 10/12/21 Range/Units 00:02 17:57 10:02 WBC (4.8-10.8) K/uL RBC (4.7-6.1) M/uL Hgb (14.0-18.0) g/dL Hct (42-52) % MCV (80-100) fL MCH (25-34) pg MCHC (32-36) g/dL RDW Std Deviation (36.4-46.3) fL RDW Coeff of Dhaval (11.5-14.5) % Plt Count (130-400) K/uL MPV (7.4-10.4) fL Immature Gran % (Auto) % Neut % (Auto) % Lymph % (Auto) % Cloud % (Auto) % Eos % (Auto) % Baso % (Auto) % Neut # (Auto) (1.4-6.5) K/uL Lymph # (Auto) (1.2-3.4) K/uL Cloud # (Auto) (0.11-0.59) K/uL Eos # (Auto) (0-0.5) K/uL Baso # (Auto) (0-0.2) K/uL Immature Gran # (Auto) (0.00-0.02) K/uL Sodium (136-145) mmol/L Potassium (3.5-5.1) mmol/L Chloride (98-107) mmol/L Carbon Dioxide (21-32) mmol/L Anion Gap (3-11) BUN (7-18) mg/dl Creatinine (0.6-1.4) mg/dl Est Cr Clr Drug Dosing ml/min Est GFR ( Amer) ml/min Est GFR (Non-Af Amer) ml/min BUN/Creatinine Ratio (10-20) Glucose (70-99) mg/dl POC Glucose 101 H 93 (70-99) mg/dl Calcium (8.5-10.1) mg/dl Phosphorus (2.5-4.9) mg/dl Magnesium (1.8-2.4) mg/dl Triglycerides (0-150) mg/dl Urine Color Yellow Urine Appearance Clear (Clear) Urine pH 6.5 (4.5-7.5) Ur Specific Thebes > 1.045 H (1.000-1.030) Urine Protein Negative (Negative) Urine Glucose (UA) Negative (Negative) Urine Ketones Negative (Negative) Urine Blood Negative (Negative) Urine Nitrite Negative (Negative) Urine Bilirubin Negative (Negative) Urine Urobilinogen Negative (Negative) Ur Leukocyte Esterase Negative (Negative) 10/12/21 Range/Units 06:10 WBC (4.8-10.8) K/uL RBC (4.7-6.1) M/uL Hgb (14.0-18.0) g/dL Hct (42-52) % MCV (80-100) fL MCH (25-34) pg MCHC (32-36) g/dL RDW Std Deviation (36.4-46.3) fL RDW Coeff of Dhaval (11.5-14.5) % Plt Count (130-400) K/uL MPV (7.4-10.4) fL Immature Gran % (Auto) % Neut % (Auto) % Lymph % (Auto) % Cloud % (Auto) % Eos % (Auto) % Baso % (Auto) % Neut # (Auto) (1.4-6.5) K/uL Lymph # (Auto) (1.2-3.4) K/uL Cloud # (Auto) (0.11-0.59) K/uL Eos # (Auto) (0-0.5) K/uL Baso # (Auto) (0-0.2) K/uL Immature Gran # (Auto) (0.00-0.02) K/uL Sodium (136-145) mmol/L Potassium (3.5-5.1) mmol/L Chloride (98-107) mmol/L Carbon Dioxide (21-32) mmol/L Anion Gap (3-11) BUN (7-18) mg/dl Creatinine (0.6-1.4) mg/dl Est Cr Clr Drug Dosing ml/min Est GFR ( Amer) ml/min Est GFR (Non-Af Amer) ml/min BUN/Creatinine Ratio (10-20) Glucose (70-99) mg/dl POC Glucose (70-99) mg/dl Calcium (8.5-10.1) mg/dl Phosphorus 2.4 L (2.5-4.9) mg/dl Magnesium 2.2 (1.8-2.4) mg/dl Triglycerides 94 (0-150) mg/dl Urine Color Urine Appearance (Clear) Urine pH (4.5-7.5) Ur Specific Thebes (1.000-1.030) Urine Protein (Negative) Urine Glucose (UA) (Negative) Urine Ketones (Negative) Urine Blood (Negative) Urine Nitrite (Negative) Urine Bilirubin (Negative) Urine Urobilinogen (Negative) Ur Leukocyte Esterase (Negative) PG Care Time/CCT Total # of Minutes Spent Total Time Spent with Patient: Total time spent is greater than 50% in coordination of care (as documented) at patient's floor/unit and/or counseling patient: Coding Level of Care Code 07253 Subseq Hosp Care Lvl 2 Diagnoses Diverticulitis small intestine K57.12 Ileus K56.7 Perforated diverticulum K57.80
--- NOTE | 2021-10-13 07:55 | Surgery Progress Note ---
Date of Service October 13, 2021 Assessment & Plan (1) Perforated diverticulum: Plan: Plan is to continue with IV antibiotics ID consult pending Patient may need home IV antibiotics with a PICC line-it is doubtful anyone in his household or the patient can give himself IV antibiotics Continue on clear liquids and PPN for now Consider rescanning him on Saturday Dr. Nelson covering over the weekend Admission and Anticipated Discharge Date Admission Date: October 12, 2021 Subjective He did have some mild pain this morning He appears to be normal, in no distress Review of Systems Review of Systems: All systems reviewed & are unremarkable except as noted in HPI & below Physical Exam Physical Exam: His abdomen is flat and soft Constitutional: well developed; no acute distress Eyes: + anicteric sclerae Respiratory: normal respiratory effort; no respiratory distress Cardiovascular: Rate/Rhythm: regular rate Gastrointestinal (Abdomen): Inspection/Auscultation: normal bowel sounds; abdomen not distended Minimal tenderness Musculoskeletal: Head/Neck/Chest: head atraumatic Skin: no rashes, warm and dry Neurologic: awake Psychiatric: Orientation: alert Results & Data ([facility]) Vital Signs (Past 12 Hours) Vital Signs Temp Pulse Resp BP Pulse Ox 10/13/21 07:13 37.4 C 70 16 125/74 94 10/13/21 00:05 37.4 C 69 16 117/82 94 PG Care Time/CCT Total # of Minutes Spent Total Time Spent with Patient: Total time spent is greater than 50% in coordination of care (as documented) at patient's floor/unit and/or counseling patient: Coding Level of Care Code 45447 Subseq Hosp Care Lvl 3 Diagnoses Perforated diverticulum K57.80
[2021-10-13 08:02] LABS: BUN Creatinine Ratio 11.6 (10-20); Calcium 8.7 mg/dl (8.5-10.1); Creatinine Clr Calc Pharmacy 90.5 ml/min; Est GFR (African American) 104.8 ml/min; Est GFR (Non-African American) 90.4 ml/min; Magnesium 2.2 mg/dl (1.8-2.4); Potassium 4.2 mmol/L (3.5-5.1)
[2021-10-13 08:06] LABS: Phosphorus 3.2 mg/dl (2.5-4.9)
[2021-10-13] MEDS ORDERED: ENOXAPARIN INJ 40 MG/0.4 ML SYR SQ ONE (13:45)
[2021-10-13] MEDS: HYDROmorphone INJ 0.5 MG/0.5 ML SYR IV PRN (15:44)
[2021-10-13] MEDS: DEXTROSE 5% 1,000 ML IV SCH (15:56)
[2021-10-13] MEDS: PERIPHERAL TPN IV SCH ×2 (15:57→16:31)
[2021-10-13] MEDS: D5W IV SCH ×2 (15:57→16:31)
[2021-10-13] MEDS: AMINO ACIDS 4.25% IV SCH ×2 (15:57→16:31)
[2021-10-13] MEDS ORDERED: CLINOLIPID 20% IV FAT EMULSION 250 ML IV SCH (16:00)
--- NOTE | 2021-10-13 21:44 | Electrocardiogram Report ---
Test Reason : Blood Pressure : / mmHG Vent. Rate : 080 BPM Atrial Rate : 080 BPM P-R Int : 162 ms QRS Dur : 096 ms QT Int : 352 ms P-R-T Axes : 063 021 046 degrees QTc Int : 405 ms Normal sinus rhythm Low voltage QRS Incomplete right bundle branch block Borderline ECG When compared with ECG of 25-SEP-2021 11:25, No significant change was found Confirmed by Gumaro De La Garza ([id number]) on 10/13/2021 9:43:56 PM Referred By: REFERRED SELF Confirmed By:Gumaro De La Garza
[2021-10-13] MEDS ORDERED: STOP CLINOLIPID ONE (22:00)
[2021-10-14] MEDS: PIPERACILLIN/TAZOBACTAM 3.375 GM in DEXTROSE 5% 100 ML IV SCH ×3 (02:45→17:46)
[2021-10-14] MEDS: AMINO ACIDS 4.25% IV SCH (03:55)
[2021-10-14] MEDS: PERIPHERAL TPN IV SCH (03:55)
[2021-10-14] MEDS: D5W IV SCH (03:55)
[2021-10-14] MEDS ORDERED: PERIPHERAL TPN IV SCH ×2 (04:00→16:00)
[2021-10-14] MEDS ORDERED: AMINO ACIDS 4.25% IV SCH ×2 (04:00→16:00)
[2021-10-14] MEDS ORDERED: D5W IV SCH ×2 (04:00→16:00)
[2021-10-14 06:09] LABS: Basophils # (auto) 0.02 K/uL (0-0.2); Basophils % (auto) 0.2 %; Eosinophils # (auto) 0.47 K/uL (0-0.5); Eosinophils % (auto) 4.5 %; Hematocrit (blood only) 40.2 % (42-52); Hemoglobin 13.4 g/dL (14.0-18.0); Immature Granulocytes # (auto) 0.02 K/uL (0.00-0.02); Immature Granulocytes % (auto) 0.2 %; Lymphocytes # (auto) 1.79 K/uL (1.2-3.4); Lymphocytes % (auto) 17.2 %; Mean Corpuscular Hemoglobin 30.5 pg (25-34); Mean Corpuscular Hgb Conc 33.3 g/dL (32-36); Mean Corpuscular Volume 91.6 fL (80-100); Mean Platelet Volume 9.3 fL (7.4-10.4); Monocytes # (auto) 0.93 K/uL (0.11-0.59); Monocytes % (auto) 8.9 %; Neutrophils # (auto) 7.17 K/uL (1.4-6.5); Platelet Count 354 K/uL (130-400); RDW Coefficient of Variation 12.9 % (11.5-14.5); RDW Standard Deviation 43.5 fL (36.4-46.3); Red Blood Count 4.39 M/uL (4.7-6.1)
[2021-10-14 06:43] LABS: Creatinine Clr Calc Pharmacy 86.2 ml/min; Est GFR (African American) 100.9 ml/min; Est GFR (Non-African American) 87.1 ml/min; Magnesium 2.3 mg/dl (1.8-2.4); Potassium 4.1 mmol/L (3.5-5.1)
[2021-10-14 06:44] LABS: Phosphorus 3.4 mg/dl (2.5-4.9)
[2021-10-14] MEDS: HYDROmorphone INJ 0.5 MG/0.5 ML SYR IV PRN ×3 (07:09→21:50)
--- NOTE | 2021-10-14 07:56 | Hospitalist Progress Note ---
Date of Service October 14, 2021 Assessment & Plan (1) Diverticulitis small intestine: Plan: Mr. Kothari is a 56 year old male with a history of Closed Head Injury 2007 with prior tracheostomy and IVC filter, Depression, Jejeunal Diverticulitis, and Tobacco Use who was hospitalized at [facility] from 09/25/21 through 09/28/21 for jejunal diverticulitis with microperforation and abscess (PRIOR abn fluid collection on imaging at that time 8.4x3.3x9.0cm in transverse). Patient was discharged from the hospital on 09/28/21 tolerating advancements in his diet, afebrile, without pain, and no leukocytosis. He completed a 2 week course of Augmentin yesterday. 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 Patient just completed a 2 week course of Augmentin 10/11/21. WBC at PCP check elevated at 11, of note. CT A/P * "re-demonstration of the jejunal diverticulitis seen within the left/mid abdomen with associated phlegmon and a few punctate foci of extrapleural gas consistent with focal microperforation. This appears to have overall improved compared to the prior study. No loculated fluid collections at this time to suggest an abscess. There are thickened loops of jejunum concerning for ileus." On PPN per surgery Temp 37.8 10/12, 37.7C afternoon 10/13 Continue IV ZOsyn (day 3)-- of note, no bcx drawn on admission WBC wnl 15.5k on admit ID consult pending --asked patient and he said he spoke to a female for about 20minutes from [place] yesterday but not sure what they recommended --> Asked parking lot chauffeur to assist with obtaining report (awaiting input but likely will need continued IV abx at d/c given he just completed course of Augmentin as prescribed at d/c last admission) Last normal BM 10/11 but states is passing gas, increased gas and less discomfort this afternoon but had gotten medication KUB with non-obstructed pattern, mild ileus, but +BS throughout and ok for some ice chips/sips but would hold off on further oral intake until seen by general surgery Continue to monitor labs/electrolyte replacement as needed Per surgery, plans for repeat CT imaging on Saturday. Dr Nelson covering through the weekend. (2) Ileus: Plan: -- Manage as outlined above. (3) Perforated diverticulum: Plan: -- Manage as outlined above. Plan: DVT prophylaxis --> SCDs ordered. Per mauricio Su for Lovenox. Patient got dose yesterday but refusing this morning -- agreeable to increase ambulation as much as possible. Encouraged compliance with SCDs however also not utilizing Disposition -continued stay, hospital service will follow along for now Admission and Anticipated Discharge Date Admission Date: October 12, 2021 Subjective patient evaluated this morning had some increased pain this morning, medicated, now resolved. pain to mid- abdomen, no radiation. passing increased amount of gas but no BM. discussed ice chips/sips but to alert if any increased discomfort/nausea and would await further advancement until tolerated/evaluated by general surgery. no fever, chills, chest pain, shortness of breath, nausea or vomiting at this time. Review of Systems Review of Systems: All systems reviewed & are unremarkable except as noted in HPI & below Physical Exam Constitutional: WD/WN, vitals as above Eyes: + anicteric sclerae and PERRL ENMT: Ears: no hearing impairment Respiratory: normal respiratory effort, lungs clear to auscultation Cardiovascular: RRR, no murmur, no edema Gastrointestinal (Abdomen): +BS throughout, tympanic to percussion, +minimal distension, soft, tenderness with voluntary guarding but without rigidity, Musculoskeletal: moves all extremities, no focal deficit Skin: warm, dry Neurologic: PERRL, EOMI, accommodation nl, no face palsy, no dysarthria Psychiatric: A+Ox3, euthymic affect Results & Data Results & Data ([facility]) Vital Signs (Past 12 Hours) Vital Signs Temp Pulse Resp BP Pulse Ox 10/13/21 21:49 37.1 C 81 16 118/68 93 Laboratory Results 10/14/21 10/14/21 10/14/21 Range/Units 05:56 05:19 05:19 WBC 10.40 (4.8-10.8) K/uL RBC 4.39 L (4.7-6.1) M/uL Hgb 13.4 L (14.0-18.0) g/dL Hct 40.2 L (42-52) % MCV 91.6 (80-100) fL MCH 30.5 (25-34) pg MCHC 33.3 (32-36) g/dL RDW Std Deviation 43.5 (36.4-46.3) fL RDW Coeff of Dhaval 12.9 (11.5-14.5) % Plt Count 354 (130-400) K/uL MPV 9.3 (7.4-10.4) fL Immature Gran % (Auto) 0.2 % Neut % (Auto) 69.0 % Lymph % (Auto) 17.2 % Becker % (Auto) 8.9 % Eos % (Auto) 4.5 % Baso % (Auto) 0.2 % Neut # (Auto) 7.17 H (1.4-6.5) K/uL Lymph # (Auto) 1.79 (1.2-3.4) K/uL Becker # (Auto) 0.93 H (0.11-0.59) K/uL Eos # (Auto) 0.47 (0-0.5) K/uL Baso # (Auto) 0.02 (0-0.2) K/uL Immature Gran # (Auto) 0.02 (0.00-0.02) K/uL Sodium 135 L (136-145) mmol/L Potassium 4.1 (3.5-5.1) mmol/L Chloride 101 (98-107) mmol/L Carbon Dioxide 27 (21-32) mmol/L Anion Gap 7.0 (3-11) BUN 15 (7-18) mg/dl Creatinine 0.98 (0.6-1.4) mg/dl Est Cr Clr Drug Dosing 86.2 ml/min Est GFR ( Amer) 100.9 ml/min Est GFR (Non-Af Amer) 87.1 ml/min BUN/Creatinine Ratio 15.0 (10-20) Glucose 120 H (70-99) mg/dl POC Glucose 128 H (70-99) mg/dl Calcium 9.0 (8.5-10.1) mg/dl Phosphorus 3.4 (2.5-4.9) mg/dl Magnesium 2.3 (1.8-2.4) mg/dl Lipase (73-393) U/L 10/14/21 10/13/21 10/13/21 Range/Units 00:00 18:23 12:02 WBC (4.8-10.8) K/uL RBC (4.7-6.1) M/uL Hgb (14.0-18.0) g/dL Hct (42-52) % MCV (80-100) fL MCH (25-34) pg MCHC (32-36) g/dL RDW Std Deviation (36.4-46.3) fL RDW Coeff of Dhaval (11.5-14.5) % Plt Count (130-400) K/uL MPV (7.4-10.4) fL Immature Gran % (Auto) % Neut % (Auto) % Lymph % (Auto) % Becker % (Auto) % Eos % (Auto) % Baso % (Auto) % Neut # (Auto) (1.4-6.5) K/uL Lymph # (Auto) (1.2-3.4) K/uL Becker # (Auto) (0.11-0.59) K/uL Eos # (Auto) (0-0.5) K/uL Baso # (Auto) (0-0.2) K/uL Immature Gran # (Auto) (0.00-0.02) K/uL Sodium (136-145) mmol/L Potassium (3.5-5.1) mmol/L Chloride (98-107) mmol/L Carbon Dioxide (21-32) mmol/L Anion Gap (3-11) BUN (7-18) mg/dl Creatinine (0.6-1.4) mg/dl Est Cr Clr Drug Dosing ml/min Est GFR ( Amer) ml/min Est GFR (Non-Af Amer) ml/min BUN/Creatinine Ratio (10-20) Glucose (70-99) mg/dl POC Glucose 118 H 110 H 105 H (70-99) mg/dl Calcium (8.5-10.1) mg/dl Phosphorus (2.5-4.9) mg/dl Magnesium (1.8-2.4) mg/dl Lipase (73-393) U/L 10/13/21 10/13/21 Range/Units 07:01 07:01 WBC (4.8-10.8) K/uL RBC (4.7-6.1) M/uL Hgb (14.0-18.0) g/dL Hct (42-52) % MCV (80-100) fL MCH (25-34) pg MCHC (32-36) g/dL RDW Std Deviation (36.4-46.3) fL RDW Coeff of Dhaval (11.5-14.5) % Plt Count (130-400) K/uL MPV (7.4-10.4) fL Immature Gran % (Auto) % Neut % (Auto) % Lymph % (Auto) % Becker % (Auto) % Eos % (Auto) % Baso % (Auto) % Neut # (Auto) (1.4-6.5) K/uL Lymph # (Auto) (1.2-3.4) K/uL Becker # (Auto) (0.11-0.59) K/uL Eos # (Auto) (0-0.5) K/uL Baso # (Auto) (0-0.2) K/uL Immature Gran # (Auto) (0.00-0.02) K/uL Sodium 135 L (136-145) mmol/L Potassium 4.2 (3.5-5.1) mmol/L Chloride 103 (98-107) mmol/L Carbon Dioxide 27 (21-32) mmol/L Anion Gap 5.0 (3-11) BUN 11 (7-18) mg/dl Creatinine 0.95 (0.6-1.4) mg/dl Est Cr Clr Drug Dosing 90.5 ml/min Est GFR ( Amer) 104.8 ml/min Est GFR (Non-Af Amer) 90.4 ml/min BUN/Creatinine Ratio 11.6 (10-20) Glucose 122 H (70-99) mg/dl POC Glucose (70-99) mg/dl Calcium 8.7 (8.5-10.1) mg/dl Phosphorus 3.2 (2.5-4.9) mg/dl Magnesium 2.2 (1.8-2.4) mg/dl Lipase 88 (73-393) U/L PG Care Time/CCT Total # of Minutes Spent Total Time Spent with Patient: Total time spent is greater than 50% in coordination of care (as documented) at patient's floor/unit and/or counseling patient: Coding Level of Care Code 34053 Subseq Hosp Care Lvl 2 Diagnoses Diverticulitis small intestine K57.12 Ileus K56.7 Perforated diverticulum K57.80
[2021-10-14] MEDS: ENOXAPARIN INJ 40 MG/0.4 ML SYR SQ SCH (09:05)
--- NOTE | 2021-10-14 10:06 | XRay Report ---
KUB CLINICAL HISTORY: Follow-up ileus. FINDINGS: 2 AP supine abdominal radiographs are correlated with abdominal CT dated 10/12/2021. There is a nonobstructed abdominal bowel gas pattern. Mildly distended loops of small bowel in the upper ab domen are unchanged. No evidence of intraperitoneal free air is seen on these supine images. There ar e no abnormal abdominal calcifications. An IVC filter is in place. Phleboliths are seen in the pelvis . The bony structures appear intact. The lung bases are clear as imaged. IMPRESSION: 1. Nonobstructed bowel gas pattern. 2. Mildly distended loops of small bowel in the upper abdomen may represent a mild ileus related to k nown small bowel diverticulitis. Electronically signed by: Yon Mathews M.D. 10/14/2021 10:05 AM
--- NOTE | 2021-10-14 12:24 | Surgery Progress Note ---
Date of Service October 14, 2021 Assessment & Plan (1) Perforated diverticulum: Plan: Patient here with perforated jejunal diverticulitis WBC 10, VSS and afebrile Still with some mild abdominal discomfort, although improving some. + flatus Will advance to clear liquids for now Continue IV abx, awaiting ID consultation Admission and Anticipated Discharge Date Admission Date: October 12, 2021 Supervising Physician Co-Signing Physician Notes Patient seen and examined, agree with above. Here for jejunal diverticulitis and antibiotics, feeling better and passing flatus. Afebrile with stable vitals, abdomen soft, mildly tender to palpation with no guarding. WBC normalized. We will continue IV antibiotics, advance to clear liquids. Subjective Patient feeling okay. Still reports some mild abdominal discomfort, but improving. Passing flatus. Physical Exam Physical Exam: awake/alert Gastrointestinal (Abdomen): Percussion/Palpation: + abdomen tender (some discomfort to palpation in mid abdomen) and abdomen soft Results & Data ([facility]) Vital Signs (Past 12 Hours) Vital Signs Temp Pulse Resp BP Pulse Ox 10/14/21 08:45 37.3 C 67 16 109/73 95 PG Care Time/CCT Total # of Minutes Spent Total Time Spent with Patient: Total time spent is greater than 50% in coordination of care (as documented) at patient's floor/unit and/or counseling patient: Coding Level of Care Code 09891 Subseq Hosp Care Lvl 1 Diagnoses Perforated diverticulum K57.80
[2021-10-14] MEDS ORDERED: CLINOLIPID 20% IV FAT EMULSION 250 ML IV SCH (16:00)
[2021-10-14] MEDS ORDERED: STOP CLINOLIPID ONE (22:00)
[2021-10-15] MEDS: PIPERACILLIN/TAZOBACTAM 3.375 GM in DEXTROSE 5% 100 ML IV SCH ×3 (02:33→18:06)
[2021-10-15] MEDS ORDERED: D5W IV SCH ×2 (04:00→16:00)
[2021-10-15] MEDS ORDERED: PERIPHERAL TPN IV SCH ×2 (04:00→16:00)
[2021-10-15] MEDS ORDERED: AMINO ACIDS 4.25% IV SCH ×2 (04:00→16:00)
[2021-10-15] MEDS: HYDROmorphone INJ 0.5 MG/0.5 ML SYR IV PRN ×5 (04:38→22:10)
[2021-10-15 07:14] LABS: Basophils # (auto) 0.03 K/uL (0-0.2); Basophils % (auto) 0.4 %; Eosinophils # (auto) 0.44 K/uL (0-0.5); Eosinophils % (auto) 5.5 %; Hematocrit (blood only) 41.1 % (42-52); Hemoglobin 13.5 g/dL (14.0-18.0); Immature Granulocytes # (auto) 0.03 K/uL (0.00-0.02); Immature Granulocytes % (auto) 0.4 %; Lymphocytes % (auto) 19.8 %; Mean Corpuscular Hemoglobin 30.3 pg (25-34); Mean Corpuscular Hgb Conc 32.8 g/dL (32-36); Mean Corpuscular Volume 92.4 fL (80-100); Monocytes # (auto) 0.73 K/uL (0.11-0.59); Neutrophils # (auto) 5.24 K/uL (1.4-6.5); Neutrophils % (auto) 64.9 %; Platelet Count 333 K/uL (130-400); RDW Standard Deviation 43.8 fL (36.4-46.3); Red Blood Count 4.45 M/uL (4.7-6.1); White Blood Count 8.07 K/uL (4.8-10.8)
--- NOTE | 2021-10-15 07:45 | Hospitalist Progress Note ---
Date of Service October 15, 2021 Assessment & Plan (1) Diverticulitis small intestine: Plan: Mr. Kothari is a 56 year old male with a history of Closed Head Injury 2007 with prior tracheostomy and IVC filter, Depression, Jejeunal Diverticulitis, and Tobacco Use who was hospitalized at [facility] from 09/25/21 through 09/28/21 for jejunal diverticulitis with microperforation and abscess (PRIOR abn fluid collection on imaging at that time 8.4x3.3x9.0cm in transverse). Patient was discharged from the hospital on 09/28/21 tolerating advancements in his diet, afebrile, without pain, and no leukocytosis. He completed a 2 week course of Augmentin yesterday. 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 Patient just completed a 2 week course of Augmentin 10/11/21. WBC at PCP check elevated at 11, of note. CT A/P * "re-demonstration of the jejunal diverticulitis seen within the left/mid abdomen with associated phlegmon and a few punctate foci of extrapleural gas consistent with focal microperforation. This appears to have overall improved compared to the prior study. No loculated fluid collections at this time to suggest an abscess. There are thickened loops of jejunum concerning for ileus." Continues PPN per surgery -- on hold as below for today Temp 37.8 10/12, 37.7C afternoon 10/13, no further temps Continue IV ZOsyn (day 4)-- of note, no bcx drawn on admission WBC wnl at 8k from 15.5k on admit Pain control, antiemetics prn --> has utilized 3 doses of 0.5 Dilaudid on 10/14, 1 dose thus far this morning ID consult done 10/13 --> not yet scanned in but obtained from ER CM while waiting --> per ID, rec tx IV Zosyn, when stable for d/c consider switching to Cipro/Flagyl 10-14 days and then re-imaging to determine final duration of abx along with clinical improvement. Alerted general surgery of recommendations last evening Last normal BM 10/11 but states is passing gas, increased gas and less discomfort this afternoon but had gotten medication KUB with non-obstructed pattern, mild ileus, but +BS throughout and ok for some ice chips/sips but would hold off on further oral intake until seen by general surgery --> advanced to clear liquids but per RN ate whole tray instead of taking it easy and had worsening discomfort and was backed down to ice chips/sips for now Continue to monitor labs/electrolyte replacement as needed -- K elevated to 5.4, started D51/2NS for IVF, PPN placed on hold Per surgery, plans for repeat CT imaging on Saturday -- sooner if felt by surgery however abd exam not overly impressive, WBC wnl and has been afebrile since low grade temp 10/13 Dr Nelson covering through the weekend -- messaged with update Continue to monitor (2) Ileus: Plan: -- Manage as outlined above. (3) Perforated diverticulum: Plan: -- Manage as outlined above. Plan: DVT prophylaxis --> SCDs ordered. Per Dr Shin, mauricio for Lovenox. Patient got dose 10/13 but refusing -- agreeable to increase ambulation as much as possible. Encouraged compliance with SCDs however also not utilizing Disposition continued stay, hospital service will follow along for now IVF added for hyperkalemia and will repeat labs this afternoon PPN on hold Continues IV ZOsyn Defer repeating imaging to primary service Admission and Anticipated Discharge Date Admission Date: October 12, 2021 Supervising Physician Co-Signing Physician Notes reviewed and agree foreign Marsh PAC, as above Subjective patient evaluated this morning pain 7/10 this morning to umbilical region, no radiation no nausea or vomiting passing lots of gas but no BM. Urinating lots. Discussed continued ice/chips for now. Had pain after clears and would hold off until seen by surgery. Holding off on repeating imaging unless worsens, but plans for tomorrow. Sooner if felt needed by surgery. no fever, chills, chest pain, shortness of breath, dysuria at this time. Discussed IVF for elevated K and repeat labs this afternoon to ensure resolved. Review of Systems Review of Systems: All systems reviewed & are unremarkable except as noted in HPI & below Physical Exam Constitutional: WD/WN, vitals as above Eyes: + anicteric sclerae and PERRL ENMT: Ears: no hearing impairment Respiratory: normal respiratory effort, lungs clear to auscultation Cardiovascular: RRR, no murmur, no edema Gastrointestinal (Abdomen): +BS throughout, tympanic to percussion, +minimal distension, soft, tenderness to umbilical region with voluntary guarding but without rigidity Musculoskeletal: moves all extremities, no focal deficit Skin: warm, dry Neurologic: PERRL, EOMI, accommodation nl, no face palsy, no dysarthria Psychiatric: A+Ox3, euthymic affect Results & Data Results & Data ([facility]) Vital Signs (Past 12 Hours) Vital Signs Temp Pulse Resp BP Pulse Ox 10/15/21 00:02 36.9 C 68 16 112/72 96 Laboratory Results 10/15/21 10/15/21 10/15/21 Range/Units 09:18 07:00 07:00 WBC (4.8-10.8) K/uL RBC (4.7-6.1) M/uL Hgb (14.0-18.0) g/dL Hct (42-52) % MCV (80-100) fL MCH (25-34) pg MCHC (32-36) g/dL RDW Std Deviation (36.4-46.3) fL RDW Coeff of Dhaval (11.5-14.5) % Plt Count (130-400) K/uL MPV (7.4-10.4) fL Immature Gran % (Auto) % Neut % (Auto) % Lymph % (Auto) % Weber % (Auto) % Eos % (Auto) % Baso % (Auto) % Neut # (Auto) (1.4-6.5) K/uL Lymph # (Auto) (1.2-3.4) K/uL Weber # (Auto) (0.11-0.59) K/uL Eos # (Auto) (0-0.5) K/uL Baso # (Auto) (0-0.2) K/uL Immature Gran # (Auto) (0.00-0.02) K/uL Sodium 136 (136-145) mmol/L Potassium 5.4 H D (3.5-5.1) mmol/L Chloride 104 (98-107) mmol/L Carbon Dioxide 28 (21-32) mmol/L Anion Gap 4.0 (3-11) BUN 16 (7-18) mg/dl Creatinine 1.05 (0.6-1.4) mg/dl Est Cr Clr Drug Dosing 80.1 ml/min Est GFR ( Amer) 92.8 ml/min Est GFR (Non-Af Amer) 80.1 ml/min BUN/Creatinine Ratio 15.6 (10-20) Glucose 115 H (70-99) mg/dl POC Glucose (70-99) mg/dl Calcium 9.3 (8.5-10.1) mg/dl Phosphorus 3.4 (2.5-4.9) mg/dl Magnesium 2.3 (1.8-2.4) mg/dl TSH 3.150 (0.300-4.500) uIu/ml Cortisol AM Sample Pending 10/15/21 10/15/21 10/14/21 Range/Units 07:00 06:08 23:54 WBC 8.07 (4.8-10.8) K/uL RBC 4.45 L (4.7-6.1) M/uL Hgb 13.5 L (14.0-18.0) g/dL Hct 41.1 L (42-52) % MCV 92.4 (80-100) fL MCH 30.3 (25-34) pg MCHC 32.8 (32-36) g/dL RDW Std Deviation 43.8 (36.4-46.3) fL RDW Coeff of Dhaval 13.0 (11.5-14.5) % Plt Count 333 (130-400) K/uL MPV 9.0 (7.4-10.4) fL Immature Gran % (Auto) 0.4 % Neut % (Auto) 64.9 % Lymph % (Auto) 19.8 % Weber % (Auto) 9.0 % Eos % (Auto) 5.5 % Baso % (Auto) 0.4 % Neut # (Auto) 5.24 (1.4-6.5) K/uL Lymph # (Auto) 1.60 (1.2-3.4) K/uL Weber # (Auto) 0.73 H (0.11-0.59) K/uL Eos # (Auto) 0.44 (0-0.5) K/uL Baso # (Auto) 0.03 (0-0.2) K/uL Immature Gran # (Auto) 0.03 H (0.00-0.02) K/uL Sodium (136-145) mmol/L Potassium (3.5-5.1) mmol/L Chloride (98-107) mmol/L Carbon Dioxide (21-32) mmol/L Anion Gap (3-11) BUN (7-18) mg/dl Creatinine (0.6-1.4) mg/dl Est Cr Clr Drug Dosing ml/min Est GFR ( Amer) ml/min Est GFR (Non-Af Amer) ml/min BUN/Creatinine Ratio (10-20) Glucose (70-99) mg/dl POC Glucose 108 H 111 H (70-99) mg/dl Calcium (8.5-10.1) mg/dl Phosphorus (2.5-4.9) mg/dl Magnesium (1.8-2.4) mg/dl TSH (0.300-4.500) uIu/ml Cortisol AM Sample 10/14/21 10/14/21 Range/Units 18:50 12:09 WBC (4.8-10.8) K/uL RBC (4.7-6.1) M/uL Hgb (14.0-18.0) g/dL Hct (42-52) % MCV (80-100) fL MCH (25-34) pg MCHC (32-36) g/dL RDW Std Deviation (36.4-46.3) fL RDW Coeff of Dhaval (11.5-14.5) % Plt Count (130-400) K/uL MPV (7.4-10.4) fL Immature Gran % (Auto) % Neut % (Auto) % Lymph % (Auto) % Weber % (Auto) % Eos % (Auto) % Baso % (Auto) % Neut # (Auto) (1.4-6.5) K/uL Lymph # (Auto) (1.2-3.4) K/uL Weber # (Auto) (0.11-0.59) K/uL Eos # (Auto) (0-0.5) K/uL Baso # (Auto) (0-0.2) K/uL Immature Gran # (Auto) (0.00-0.02) K/uL Sodium (136-145) mmol/L Potassium (3.5-5.1) mmol/L Chloride (98-107) mmol/L Carbon Dioxide (21-32) mmol/L Anion Gap (3-11) BUN (7-18) mg/dl Creatinine (0.6-1.4) mg/dl Est Cr Clr Drug Dosing ml/min Est GFR ( Amer) ml/min Est GFR (Non-Af Amer) ml/min BUN/Creatinine Ratio (10-20) Glucose (70-99) mg/dl POC Glucose 124 H 110 H (70-99) mg/dl Calcium (8.5-10.1) mg/dl Phosphorus (2.5-4.9) mg/dl Magnesium (1.8-2.4) mg/dl TSH (0.300-4.500) uIu/ml Cortisol AM Sample PG Care Time/CCT Total # of Minutes Spent Total Time Spent with Patient: Total time spent is greater than 50% in coordination of care (as documented) at patient's floor/unit and/or counseling patient: Coding Level of Care Code 24906 Subseq Hosp Care Lvl 3 Diagnoses Diverticulitis small intestine K57.12 Ileus K56.7 Perforated diverticulum K57.80
[2021-10-15] MEDS: ENOXAPARIN INJ 40 MG/0.4 ML SYR SQ SCH (07:52)
[2021-10-15 08:04] LABS: BUN Creatinine Ratio 15.6 (10-20); Calcium 9.3 mg/dl (8.5-10.1); Creatinine Clr Calc Pharmacy 80.1 ml/min; Est GFR (African American) 92.8 ml/min; Est GFR (Non-African American) 80.1 ml/min; Potassium 5.4 mmol/L (3.5-5.1); Thyroid Stimulating Hormone 3.15 uIu/ml (0.300-4.500)
[2021-10-15] MEDS ORDERED: D5W AND 1/2NSS 1,000 ML IV SCH (08:45)
--- NOTE | 2021-10-15 09:11 | Surgery Progress Note ---
Date of Service October 15, 2021 Assessment & Plan (1) Perforated diverticulum: Plan: perforated jejunal diverticulitis WBC 8, VSS and afebrile resume clears as he feels comfortable PPN will be held today due to K+ 5.4, IVF already ordered by med Continue IV abx, awaiting ID consultation Admission and Anticipated Discharge Date Admission Date: October 12, 2021 Supervising Physician Co-Signing Physician Notes Patient seen and examined, agree with above. Here for jejunal diverticulitis and antibiotics, feeling better and passing flatus. Tried clears yesterday, patient had increased pain. Afebrile with stable vitals, abdomen soft, slightly more tender to palpation with no guarding. WBC normal. We will continue IV antibiotics, n.p.o. May consider repeat imaging if no improvement over the next few days Subjective still having occasional sharp pain and occurred after clears so he's not interested in liquids, no fevers or chills Physical Exam Gastrointestinal (Abdomen): Inspection/Auscultation: abdomen not distended Percussion/Palpation: + abdomen tender (minimal) and abdomen soft Results & Data ([facility]) Vital Signs (Past 12 Hours) Vital Signs Temp Pulse Resp BP Pulse Ox 10/15/21 08:29 36.7 C 60 17 119/79 97 10/15/21 00:02 36.9 C 68 16 112/72 96 PG Care Time/CCT Total # of Minutes Spent Total Time Spent with Patient: Total time spent is greater than 50% in coordination of care (as documented) at patient's floor/unit and/or counseling patient: Coding Level of Care Code 26219 Subseq Hosp Care Lvl 1 Diagnoses Perforated diverticulum K57.80
[2021-10-15 10:04] LABS: Magnesium 2.3 mg/dl (1.8-2.4); Phosphorus 3.4 mg/dl (2.5-4.9)
[2021-10-15 15:15] LABS: BUN Creatinine Ratio 13.3 (10-20); Calcium 8.8 mg/dl (8.5-10.1); Creatinine Clr Calc Pharmacy 78.6 ml/min; Est GFR (African American) 90.7 ml/min; Est GFR (Non-African American) 78.3 ml/min; Potassium 4.2 mmol/L (3.5-5.1)
[2021-10-15] MEDS ORDERED: hydrALAZINE HCL 20 MG/ML VIAL IV PRN (15:15)
[2021-10-15] MEDS ORDERED: MELATONIN 3 MG TAB PO PRN (17:30)
[2021-10-15] MEDS ORDERED: STOP CLINOLIPID ONE (22:00)
[2021-10-15] MEDS ORDERED: CLINOLIPID 20% IV FAT EMULSION 250 ML IV SCH (22:00)
[2021-10-16] MEDS: PIPERACILLIN/TAZOBACTAM 3.375 GM in DEXTROSE 5% 100 ML IV SCH ×3 (02:20→18:37)
[2021-10-16] MEDS ORDERED: D5W IV SCH (04:00)
[2021-10-16] MEDS ORDERED: STOP CLINOLIPID ONE ×2 (04:00→22:00)
[2021-10-16] MEDS ORDERED: PERIPHERAL TPN IV SCH (04:00)
[2021-10-16] MEDS ORDERED: AMINO ACIDS 4.25% IV SCH (04:00)
[2021-10-16 07:12] LABS: Basophils # (auto) 0.04 K/uL (0-0.2); Basophils % (auto) 0.5 %; Eosinophils # (auto) 0.66 K/uL (0-0.5); Eosinophils % (auto) 8.9 %; Hematocrit (blood only) 41.6 % (42-52); Hemoglobin 13.5 g/dL (14.0-18.0); Immature Granulocytes # (auto) 0.02 K/uL (0.00-0.02); Immature Granulocytes % (auto) 0.3 %; Lymphocytes # (auto) 2.14 K/uL (1.2-3.4); Lymphocytes % (auto) 28.8 %; Mean Corpuscular Hemoglobin 30.3 pg (25-34); Mean Corpuscular Hgb Conc 32.5 g/dL (32-36); Mean Corpuscular Volume 93.5 fL (80-100); Mean Platelet Volume 9.3 fL (7.4-10.4); Monocytes # (auto) 0.87 K/uL (0.11-0.59); Monocytes % (auto) 11.7 %; Neutrophils # (auto) 3.71 K/uL (1.4-6.5); Neutrophils % (auto) 49.8 %; Platelet Count 368 K/uL (130-400); RDW Coefficient of Variation 12.9 % (11.5-14.5); RDW Standard Deviation 44.1 fL (36.4-46.3); Red Blood Count 4.45 M/uL (4.7-6.1); White Blood Count 7.44 K/uL (4.8-10.8)
--- NOTE | 2021-10-16 07:24 | Surgery Progress Note ---
Date of Service October 16, 2021 Assessment & Plan (1) Perforated diverticulum: Plan: Patient is very stable We are going to assess him with a CT scan with 1 bottle of contrast Depending on findings we may consider trying oral antibiotics tomorrow- apparently Cipro/Flagyl have been suggested by ID for 2 weeks Possibly advance his diet to more regular food today Continue his PPN for now until we are sure he is able to tolerate p.o. May consider discharge in 2 to 3 days depending on progress Admission and Anticipated Discharge Date Admission Date: October 12, 2021 Subjective She is awake and alert no distress He apparently did have some pain which she did receive some Dilaudid He is passing flatus Taking just some clear liquids Vital signs are stable Review of Systems Review of Systems: All systems reviewed & are unremarkable except as noted in HPI & below Physical Exam Physical Exam: Patient is awake and alert in no distress His abdomen is flat and soft with normal bowel sounds He has minimal tenderness but some to deep palpation left abdomen No evidence of peritoneal irritation Constitutional: well nourished; no acute distress Eyes: + anicteric sclerae Respiratory: normal respiratory effort; no respiratory distress Cardiovascular: Rate/Rhythm: regular rate Gastrointestinal (Abdomen): Inspection/Auscultation: normal bowel sounds; abdomen not distended Musculoskeletal: Head/Neck/Chest: head atraumatic Skin: no rashes, warm and dry Neurologic: awake Psychiatric: Orientation: alert Results & Data ([facility]) Vital Signs (Past 12 Hours) Vital Signs Temp Pulse Resp BP Pulse Ox 10/15/21 22:00 36.4 C L 73 16 126/86 97 PG Care Time/CCT Total # of Minutes Spent Total Time Spent with Patient: Total time spent is greater than 50% in coordination of care (as documented) at patient's floor/unit and/or counseling patient: Coding Level of Care Code 19568 Subseq Hosp Care Lvl 3 Diagnoses Perforated diverticulum K57.80
[2021-10-16 07:46] LABS: Albumin Level 2.7 gm/dl (3.4-5.0); BUN Creatinine Ratio 13.6 (10-20); Calcium 9.1 mg/dl (8.5-10.1); Creatinine Clr Calc Pharmacy 86.1 ml/min; Est GFR (African American) 102.2 ml/min; Est GFR (Non-African American) 88.1 ml/min; Magnesium 2.5 mg/dl (1.8-2.4); Potassium 3.9 mmol/L (3.5-5.1)
[2021-10-16 07:49] LABS: Albumin Globulin Ratio 0.6 (0.9-2); Bilirubin,Total 0.5 mg/dl (0.2-1); Globulin 4.4 gm/dl (2.5-4.0); Phosphorus 3.5 mg/dl (2.5-4.9); Total Protein 7.1 gm/dl (6.4-8.2)
[2021-10-16] MEDS ORDERED: OPTIRAY 320 100ml IV ONE (08:41)
[2021-10-16] MEDS: ENOXAPARIN INJ 40 MG/0.4 ML SYR SQ SCH (09:31)
--- NOTE | 2021-10-16 09:39 | CT Scan Report ---
CT OF THE ABDOMEN AND PELVIS WITH CONTRAST CLINICAL HISTORY: Jejunal diverticulitis. COMPARISON STUDY: CT of the abdomen and pelvis October 12, 2021. KUB October 14, 2021. TECHNIQUE: Following IV administration of Optiray, axial images of the abdomen and pelvis were obtain ed from the lung bases to the proximal femurs. Images were reviewed in the axial, sagittal, and coron al planes. IV contrast was administered without complication. Automated exposure control was utilize d for the study. A dose lowering technique was utilized adhering to the principles of ALARA. Oral co ntrast was administered. CT DOSE: 355.28 mGy.cm FINDINGS: Lung bases are unremarkable. No pneumatosis, free air or portal venous gas is present. The liver, spleen, adrenal glands, left kidney and pancreas are normal. There is no biliary or pancreatic ductal dilatation. There is no hydronephrosis. Indeterminate 7 mm lesion within the lower pole of th e right kidney on axial image 192 of 476 is again noted. This could a hyperdense cyst or small solid renal lesion. IVC filter is in place. There is no evidence for a bowel obstruction. Colonic diverticu losis is noted. There is no evidence for colonic diverticulitis. The appendix is normal. Note is agai n made of findings consistent with jejunal diverticulitis. There is associated mesenteric stranding a nd phlegmon with peripheral enhancement. No well-defined fluid collection is identified to suggest an abscess. Phlegmon measures approximately 2.9 cm. Extraluminal gas shown on prior exam has resolved. Jejunal wall thickening and associated ascites has improved. Numerous jejunal diverticula are again noted. IMPRESSION: Redemonstration of jejunal diverticulitis. Resolution of extraluminal gas and improvemen t in associated ascites and jejunal wall thickening. Persistent mesenteric stranding and phlegmon, si milar to prior exam. Overall, findings have slightly improved since prior study. No bowel obstruction . ACT 112: Negative or not required by law. Electronically signed by: Cj Cardenas M.D. 10/16/2021 9:37 AM
--- NOTE | 2021-10-16 14:24 | Hospitalist Progress Note ---
Date of Service October 16, 2021 Assessment & Plan (1) Diverticulitis small intestine: Plan: Mr. Kothari is a 56 year old male with a history of Closed Head Injury 2007 with prior tracheostomy and IVC filter, Depression, Jejeunal Diverticulitis, and Tobacco Use who was hospitalized at [facility] from 09/25/21 through 09/28/21 for jejunal diverticulitis with microperforation and abscess (PRIOR abn fluid collection on imaging at that time 8.4x3.3x9.0cm in transverse). Patient was discharged from the hospital on 09/28/21 tolerating advancements in his diet, afebrile, without pain, and no leukocytosis. He completed a 2 week course of Augmentin yesterday. 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 Patient just completed a 2 week course of Augmentin 10/11/21. WBC at PCP check elevated at 11, of note. - CT A/P on Admission * "re-demonstration of the jejunal diverticulitis seen within the left/mid abdomen with associated phlegmon and a few punctate foci of extrapleural gas consistent with focal microperforation. This appears to have overall improved compared to the prior study. No loculated fluid collections at this time to suggest an abscess. There are thickened loops of jejunum concerning for ileus." * Repeated today - redemonstration of jejunal diverticulitis; resolution of extraluminal gas and improvement in associated ascites and jejunal wall thickening; persistent mesentaric stranding and phlegmon similar to prior study; no well-defined fluid collection to suggest abscess - Continues PPN until confirmed able to tolerate diet - so far this afternoon was tolerating and eating slowly - Remains afebrile - Continue IV Zosyn - plan to convert to Cipro/Flagyl x 10-14 days with re- imaging to determine final duration and confirm improvement per ID recommendations - Has not required pain medication today; moving bowels (2) Ileus: Plan: - RESOLVED -- Manage as outlined above. (3) Perforated diverticulum: Plan: -- Manage as outlined above. Plan: DVT prophylaxis --> SCDs ordered. Per mauricio Su for Lovenox. Patient got dose 10/13 but refusing -- agreeable to increase ambulation as much as possible Disposition: - Advancing diet as tolerated; plan for oral Abx - likely D/C in 2-3 days. Hospitalist service will continue to follow Admission and Anticipated Discharge Date Admission Date: October 12, 2021 Subjective He reports feeling a bit better today. Has not required pain medication yet today. States his abdominal pain can get sharp after getting up to go to urinate but resolves spontaneously. Passing flatus but no bowel movement. Repeat CT shows stool and can work and getting him moving his bowels more. Tolerated a full liquid diet for lunch today and states he took it slower than he did previously. He reports no new complaints. Review of Systems Review of Systems: All systems reviewed & are unremarkable except as noted in Subjective Physical Exam Physical Exam: PHYSICAL EXAM General Appearance: WDWN in NAD who is A&O x 3 HEENT: Head is normocephalic/atraumatic; EOMI; PERRLA; Hearing grossly intact; Mucous membranes moist Neck: Supple; Trachea midline; Neg JVD Heart: RRR with no M/G/R Lungs: CTA in all lung raymond bilaterally; Respirations unlabored; Neg accessory muscle use Abdomen: Soft, non-tender, non-distended; Positive BS x 4 quadrants Extremities: Neg cyanosis or edema Neurological: Speech clear; Gross motor/sensory function intact; Neg focal neurologic deficits Psychiatric: Appropriate mood/affect Skin: Normal Color; Warm/Dry Results & Data Results & Data ([facility]) Vital Signs (Past 12 Hours) Vital Signs Temp Pulse Resp BP Pulse Ox 10/16/21 07:41 36.6 C 61 16 117/72 96 PG Care Time/CCT Total # of Minutes Spent Total Time Spent with Patient: Total time spent is greater than 50% in coordination of care (as documented) at patient's floor/unit and/or counseling patient: Coding Level of Care Code 63076 Inpt Consult Level 2 Diagnoses Diverticulitis small intestine K57.12 Ileus K56.7 Perforated diverticulum K57.80
[2021-10-16] MEDS ORDERED: CLINOLIPID 20% IV FAT EMULSION 250 ML IV SCH (16:00)
[2021-10-16] MEDS: AMINO ACIDS 4.25% IV SCH (16:25)
[2021-10-16] MEDS: D5W IV SCH (16:25)
[2021-10-16] MEDS: PERIPHERAL TPN IV SCH (16:25)
[2021-10-17] MEDS: PIPERACILLIN/TAZOBACTAM 3.375 GM in DEXTROSE 5% 100 ML IV SCH (02:10)
[2021-10-17] MEDS: PERIPHERAL TPN IV SCH (03:42)
[2021-10-17] MEDS: D5W IV SCH (03:42)
[2021-10-17] MEDS: AMINO ACIDS 4.25% IV SCH (03:42)
[2021-10-17 06:38] LABS: BUN Creatinine Ratio 15.8 (10-20); Calcium 9.2 mg/dl (8.5-10.1); Creatinine Clr Calc Pharmacy 84.5 ml/min; Est GFR (African American) 99.7 ml/min; Magnesium 2.2 mg/dl (1.8-2.4); Potassium 4.1 mmol/L (3.5-5.1)
[2021-10-17 06:39] LABS: Phosphorus 3.9 mg/dl (2.5-4.9)
--- NOTE | 2021-10-17 07:44 | Surgery Progress Note ---
Date of Service October 17, 2021 Assessment & Plan (1) Perforated diverticulum: Plan: Patients CT scan showed some improvement No obstruction Tolerating full liquids-advance to low fiber diet Switch to Cipro Flagyl to assess tolerance Stop PPN after current bag complete Possible discharge tomorrow if all great Admission and Anticipated Discharge Date Admission Date: October 12, 2021 Subjective He is awake and alert no distress He did not have significant pain to require medication He is passing flatus Taking full liquids Vital signs are stable Review of Systems Review of Systems: All systems reviewed & are unremarkable except as noted in HPI & below Physical Exam Physical Exam: Patient is awake and alert in no distress His abdomen is flat and soft with normal bowel sounds Constitutional: well nourished; no acute distress Eyes: + anicteric sclerae Respiratory: normal respiratory effort; no respiratory distress Cardiovascular: Rate/Rhythm: regular rate Gastrointestinal (Abdomen): Inspection/Auscultation: normal bowel sounds; abdomen not distended Musculoskeletal: Head/Neck/Chest: head atraumatic Skin: no rashes, warm and dry Neurologic: awake Psychiatric: Orientation: alert Results & Data ([facility]) Vital Signs (Past 12 Hours) Vital Signs Temp Pulse Resp BP Pulse Ox 10/16/21 22:25 36.8 C 66 16 115/78 91 PG Care Time/CCT Total # of Minutes Spent Total Time Spent with Patient: Total time spent is greater than 50% in coordination of care (as documented) at patient's floor/unit and/or counseling patient: Coding Level of Care Code 45649 Subseq Hosp Care Lvl 3 Diagnoses Perforated diverticulum K57.80
[2021-10-17] MEDS: ENOXAPARIN INJ 40 MG/0.4 ML SYR SQ SCH (08:27)
[2021-10-17] MEDS: metroNIDAZOLE 500 MG TAB PO SCH ×3 (09:30→20:39)
[2021-10-17] MEDS: CIPROFLOXACIN 500 MG TAB PO SCH ×2 (09:30→20:38)
[2021-10-18 07:32] LABS: BUN Creatinine Ratio 21.4 (10-20); Calcium 9.3 mg/dl (8.5-10.1); Creatinine Clr Calc Pharmacy 88.9 ml/min; Est GFR (African American) 106.1 ml/min; Est GFR (Non-African American) 91.6 ml/min; Magnesium 2.2 mg/dl (1.8-2.4)
[2021-10-18] MEDS: ENOXAPARIN INJ 40 MG/0.4 ML SYR SQ SCH (07:35)
--- NOTE | 2021-10-18 07:56 | Surgery Progress Note ---
Date of Service October 18, 2021 Assessment & Plan (1) Perforated diverticulum: Plan: Plan for discharge home today Ideally we were going to use Cipro/Flagyl-apparently there is a shortage of Cipro and we may need Another antibiotic such as Levaquin We will check into this this morning and order the appropriate antibiotics Admission and Anticipated Discharge Date Admission Date: October 12, 2021 Subjective He is awake and alert no distress He did not have significant pain to require medication He is passing flatus Taking low fiber diet Vital signs are stable Review of Systems Review of Systems: All systems reviewed & are unremarkable except as noted in HPI & below Physical Exam Physical Exam: Patient is awake and alert in no distress His abdomen is flat and soft with normal bowel sounds Constitutional: well nourished; no acute distress Eyes: + anicteric sclerae Respiratory: normal respiratory effort; no respiratory distress Cardiovascular: Rate/Rhythm: regular rate Gastrointestinal (Abdomen): Inspection/Auscultation: normal bowel sounds; abdomen not distended Musculoskeletal: Head/Neck/Chest: head atraumatic Skin: no rashes, warm and dry Neurologic: awake Psychiatric: Orientation: alert Results & Data ([facility]) Vital Signs (Past 12 Hours) Vital Signs Temp Pulse Resp BP Pulse Ox 10/18/21 07:51 36.6 C 53 L 16 119/79 95 10/17/21 22:30 36.9 C 71 16 130/83 97 PG Care Time/CCT Total # of Minutes Spent Total Time Spent with Patient: Total time spent is greater than 50% in coordination of care (as documented) at patient's floor/unit and/or counseling patient: Coding Level of Care Code 32252 Subseq Hosp Care Lvl 3 Diagnoses Perforated diverticulum K57.80
[2021-10-18] MEDS: metroNIDAZOLE 500 MG TAB PO SCH (08:56)
[2021-10-18] MEDS: CIPROFLOXACIN 500 MG TAB PO SCH (08:56)
--- NOTE | 2021-10-19 09:07 | Discharge Summary (DS) ---
DATE OF ADMISSION: 10/12/2021. DATE OF DISCHARGE: 10/18/2021. PRINCIPAL DIAGNOSIS: Perforated jejunal diverticulitis. HISTORY OF PRESENT ILLNESS: The patient is a 56-year-old male who presented to the Emergency Room wi th additional abdominal pain. The patient had had prior admission on 09/25/2021 for what appeared to be a perforated jejunal diverticulitis. He was treated for a short time on IV antibiotics and then sent home on oral antibiotics. He did have additional pain, presenting to the Emergency Room with CA T scan showing some actual improvement in the area, but he was admitted for additional IV antibiotics . We also obtained an ID consult suggesting patient be treated for at least 2 weeks on Cipro and Fla gyl as an outpatient. He did well in the hospital and was felt stable for discharge on 10/18/2021 to be followed in the surgical clinic within 2-3 weeks being placed on Cipro and Flagyl as an outpatien t. Job ID: [id number]
== END 2021-10-18 14:32 | disposition home or self-care (01) | DRG 392 ==
LOC: ED 06:01 → 3E 11:28

== ENCOUNTER 2024-06-15 08:17 | Inpatient (IN) ==
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
[2024-06-15 08:56] LABS: Basophils # (auto) 0.03 K/uL (0.00-0.20); Basophils % (auto) 0.2 %; Eosinophils # (auto) 0.05 K/uL (0.00-0.50); Eosinophils % (auto) 0.3 %; Hematocrit (blood only) 46.7 % (42.0-52.0); Hemoglobin 16.1 g/dl (14.0-18.0); Immature Granulocytes # (auto) 0.08 K/uL (0.01-0.20); Immature Granulocytes % (auto) 0.6 %; Lymphocytes # (auto) 1.16 K/uL (1.20-3.40); Lymphocytes % (auto) 8.1 %; Mean Corpuscular Hemoglobin 30.2 pg (25.0-34.0); Mean Corpuscular Hgb Conc 34.5 g/dL (32.0-36.0); Mean Corpuscular Volume 87.6 fL (80.0-100.0); Mean Platelet Volume 9.8 fL (9.4-12.4); Monocytes # (auto) 0.62 K/uL (0.11-0.59); Monocytes % (auto) 4.3 %; Neutrophils # (auto) 12.45 K/uL (1.40-6.50); Neutrophils % (auto) 86.5 %; Platelet Count 244 K/uL (130-400); RDW Coefficient of Variation 12.8 % (11.5-14.5); RDW Standard Deviation 41.5 fL (36.4-46.3); Red Blood Count 5.33 M/uL (4.70-6.10); White Blood Count 14.39 K/ul (4.8-10.8)
[2024-06-15 09:03] LABS: Albumin Globulin Ratio 1.6 (0.9-2); Albumin Level 4.3 gm/dl (3.4-5.0); Bilirubin,Total 2.2 mg/dl (0.2-1.0); Calcium 9.2 mg/dl (8.6-10.3); Creatinine Clr Calc Pharmacy 81.1 ml/min; Est GFR (African American) 91.5 ml/min; Globulin 2.7 gm/dl (2.5-4.0); Magnesium 1.9 mg/dl (1.7-2.4); Potassium 4.2 mmol/L (3.5-5.1)
[2024-06-15 09:19] LABS: INR 1.1 (0.9-1.1); Partial Thromboplastin Time 28 Seconds (21-31)
[2024-06-15] MEDS: OPTIRAY 320 100ml IV ONE (09:27)
--- NOTE | 2024-06-15 11:04 | CT Scan Report ---
ABDOMEN AND PELVIS CT WITH IV CONTRAST CT DOSE: 908.66 mGy.cm HISTORY: Lower abd pain, vomiting TECHNIQUE: Multiaxial CT images of the abdomen and pelvis were performed following the use of intrave nous contrast. A dose lowering technique was utilized adhering to the principles of ALARA. COMPARISON STUDY: Abdomen and pelvis CT 10/16/2021. FINDINGS: The lung bases are clear.. Tiny fat-containing left inguinal hernia. Mild hepatic steatosis . No hepatic or splenic masses. The adrenal glands, gallbladder, and pancreas are unremarkable. A 9 m m hypodense lesion within the right kidney, unchanged. This favors a cyst. Stable 7 mm exophytic hype rdense lesion within the lower pole of the right kidney on image 121. This could represent a hyperden se cyst given the long-term stability. Normal left kidney. No hydronephrosis. The main portal vein is patent. Normal caliber abdominal aorta. No retroperitoneal or pelvic lymphadenopathy. No pelvic free fluid. An IVC filter is noted. The prostate gland is mildly enlarged. Normal bladder. No evidence fo r bowel obstruction. Colonic and jejunal diverticulosis. No definite evidence for acute diverticuliti s. Normal appendix. Multiple thickened loops of jejunum within the left side of the abdomen with surr ounding fat stranding and mild mesenteric edema consistent with an enteritis. Best seen on images 166 and 168 there are 2 punctate foci of extraluminal gas adjacent to a thickened loop of jejunum. This could represent small focus of microperforation or mesenteric venous gas in the setting of ischemic b owel. However, the mesenteric vessels appear patent. IMPRESSION: 1. Multiple thickened loops of jejunum within the left side of the abdomen with surrounding fat stran ding and mild mesenteric edema consistent with an enteritis. In addition, there are 2 punctate foci o f extraluminal gas adjacent to a thickened loop of jejunum as described above. This could represent a small focus of microperforation or mesenteric venous gas in the setting of ischemic bowel. Surgical consultation recommended. 2. Colonic and jejunal diverticulosis again noted. No evidence for acute diverticulitis at this time. 3. No evidence for bowel obstruction. 4. Additional findings as described above. ACT 112: Negative or not required by law. Electronically signed by: Kristian Hamilton M.D. 06/15/2024 11:01 AM
[2024-06-15] MEDS: SODIUM CHLORIDE 0.9% 500 ML IV SCH (11:16)
[2024-06-15] MEDS: PIPERACILLIN/TAZOBACTAM 4.5 GM/100 ML BAG IV ONE (11:39)
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
[2024-06-15] MEDS: SODIUM CHLORIDE 0.9% 1,000 ML IV SCH (13:16)
[2024-06-15] MEDS: KETOROLAC TROMETHAMINE 15 MG/ML VIAL IV PRN (13:27)
[2024-06-15 13:59] LABS: Appearance Urine Clear (Clear); Bilirubin Urine 1+ (Negative); Blood Urine Negative (Negative); Color Urine Yellow; Glucose Urine UA Negative (Negative); Ketones Urine Trace (Negative); Leukocyte Esterase Urine Negative (Negative); Nitrite Urine Negative (Negative); Protein Urine 1+ (Negative); Urobilinogen Urine Negative (Negative)
[2024-06-15 14:12] LABS: Bacteria Urine None Seen (None Seen); RBC Urine 0-2 /hpf (0-2); WBC Urine 0-5 /hpf (0-5)
[2024-06-15 14:13] LABS: Amorphous Sediment Urine Present (None Prsent)
--- NOTE | 2024-06-15 14:15 | Billing Data ---
Date of Service June 15, 2024 Coding Level of Care Code 23202 INT INP/OBS CARE
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
[2024-06-15] MEDS: PIPERACILLIN/TAZOBACTAM 4.5 GM/100 ML BAG IV SCH (15:55)
[2024-06-16] MEDS: ACETAMINOPHEN 1,000 MG/100 ML VIAL IV PRN (00:34)
[2024-06-16 08:21] LABS: Albumin Globulin Ratio 1.5 (0.9-2); Albumin Level 3.4 gm/dl (3.4-5.0); Bilirubin,Total 1.2 mg/dl (0.2-1.0); Calcium 8.2 mg/dl (8.6-10.3); Creatinine Clr Calc Pharmacy 88.7 ml/min; Globulin 2.3 gm/dl (2.5-4.0); Potassium 3.8 mmol/L (3.5-5.1); Total Protein 5.7 gm/dl (6.0-8.3)
[2024-06-16 08:24] LABS: Basophils # (auto) 0.03 K/uL (0.00-0.20); Basophils % (auto) 0.3 %; Eosinophils # (auto) 0.19 K/uL (0.00-0.50); Eosinophils % (auto) 2.2 %; Hematocrit (blood only) 39.7 % (42.0-52.0); Hemoglobin 13.2 g/dl (14.0-18.0); Immature Granulocytes # (auto) 0.04 K/uL (0.01-0.20); Immature Granulocytes % (auto) 0.5 %; Lymphocytes # (auto) 0.77 K/uL (1.20-3.40); Mean Corpuscular Hemoglobin 29.7 pg (25.0-34.0); Mean Corpuscular Hgb Conc 33.2 g/dL (32.0-36.0); Mean Corpuscular Volume 89.2 fL (80.0-100.0); Mean Platelet Volume 9.7 fL (9.4-12.4); Monocytes # (auto) 0.45 K/uL (0.11-0.59); Monocytes % (auto) 5.2 %; Neutrophils # (auto) 7.12 K/uL (1.40-6.50); Neutrophils % (auto) 82.8 %; Platelet Count 192 K/uL (130-400); RDW Coefficient of Variation 12.8 % (11.5-14.5); RDW Standard Deviation 42.2 fL (36.4-46.3); Red Blood Count 4.45 M/uL (4.70-6.10)
--- NOTE | 2024-06-16 11:18 | Surgery Progress Note ---
Date of Service June 16, 2024 Assessment & Plan (1) Abdominal pain: Plan: Pt here w/ abdominal pain and CT concerning for possible small bowel diverticulitis WBC normalized 8.6 (14). Low grade temps 99-100F last night into this early AM, now afebrile Abdominal pain present but improved, mostly LLQ ttp Continue IV abx Keep NPO with ice for today as above. glenda clear liquids earlier today. currently no pain or nausea. stay on clears for now. continue antibiotics. will monitor temp/wbc no urgent indications for surgical intervention. will likely repeat ct scan tomorrow or Admission and Anticipated Discharge Date Admission Date: June 15, 2024 Subjective Patient feeling better than admission. Says his pain regimen was adjusted with relief. No nausea/vomiting. + flatus, no BM. Still with lower abdominal discomfort to palpation Physical Exam Physical Exam: awake/alert, no distress Gastrointestinal (Abdomen): Inspection/Auscultation: abdomen not distended Percussion/Palpation: + abdomen tender (ttp across lower abdomen, Left side more so) and abdomen soft Results & Data Vital Signs (Past 12 Hours) Vital Signs Temp Pulse Resp BP Pulse Ox O2 Del Method 06/16/24 07:58 97.7 F 88 18 152/83 H 93 Room Air 06/16/24 01:23 99.7 F H 99 H 17 130/71 93 Room Air PG Care Time/CCT Total # of Minutes Spent Total Time Spent with Patient: Total time spent is greater than 50% in coordination of care (as documented) at patient's floor/unit and/or counseling patient: Coding Level of Care Code 08394 SUB INP/OBS CARE 1/25MIN Diagnoses Abdominal pain R10.9
--- NOTE | 2024-06-16 14:04 | Hospitalist Progress Note ---
Date of Service June 16, 2024 Assessment & Plan (1) Gastroenteritis: Plan: -Patient with abdominal pain, fever, chills, and nausea that started 06/14. -reviewed CBC 06/16: WBC normalized to 8.60, hgb 13.2 -reviewed CMP 06/16: total bili downtreding to 1.2, electrolytes/kidney function stable. -reviewed urinalysis 06/15: negative for UTI -stool panel pending -reviewed CTAP 06/15: multiple thickened loops of jejnum within left side of abdomen with surrounding fat stranding and mild mesenteric edema consistent with enteritis. 2 punctate foci of extra luminal gas adjacent to thickened loop of jejunum. Could represent sm focus of microperforation or mesenteric venous gas in setting of ischemic bowel. colonic and jejunal diverticulosis. no evidence for acute diverticulitis or bowel obstruction. -surgery consultation reviewed continue IVF repeat CT scan 06/17 or 06/18 -advanced to clear liquid diet -Toradol IV as needed for pain, Zofran as needed for nausea. AM CBC, BMP Plan Chronic conditions: Dyslipidemia: hold simvastatin while NPO, resume at time of discharge. Diet: clear liquids Code status: full code DVT ppx: SCDs Dispo: med/surg Admission and Anticipated Discharge Date Admission Date: June 15, 2024 Subjective Patient seen and examined this morning. Patient reports that his abdominal pain has been controlled with pain medication so far today. He reports no further nausea or vomiting. He denies any recent BM's. He states he has not had much of an appetite the previous 3 days but is feeling hungry today and is willing to trial clear liquid diet. Physical Exam 2 Constitutional: WD/WN, vitals as above Eyes: PERRL, conjunctivae normal, anicteric sclerae Respiratory: normal respiratory effort, lungs clear to auscultation Cardiovascular: RRR, no murmur, no edema Gastrointestinal (Abdomen): normal bowel sounds, soft, nontender, no hepatosplenomegaly Skin: no rashes, warm and dry Psychiatric: A+Ox3, euthymic affect Results & Data Results & Data Vital Signs (Past 12 Hours) Vital Signs Temp Pulse Resp BP Pulse Ox O2 Del Method 06/16/24 07:58 36.5 C 88 18 152/83 H 93 Room Air Laboratory Results 06/16/24 07:46 06/16/24 07:46 PG Care Time/CCT Total # of Minutes Spent Total Time Spent with Patient: Total time spent is greater than 50% in coordination of care (as documented) at patient's floor/unit and/or counseling patient: Coding Level of Care Code 58717 SUB INP/OBS CARE 3/50MIN Diagnoses Gastroenteritis K52.9
[2024-06-17 07:10] LABS: Hematocrit (blood only) 37.5 % (42.0-52.0); Hemoglobin 12.4 g/dl (14.0-18.0); Mean Corpuscular Hemoglobin 29.4 pg (25.0-34.0); Mean Corpuscular Hgb Conc 33.1 g/dL (32.0-36.0); Mean Corpuscular Volume 88.9 fL (80.0-100.0); Mean Platelet Volume 9.5 fL (9.4-12.4); Platelet Count 194 K/uL (130-400); RDW Coefficient of Variation 12.9 % (11.5-14.5); RDW Standard Deviation 42.1 fL (36.4-46.3); Red Blood Count 4.22 M/uL (4.70-6.10); White Blood Count 7.75 K/ul (4.8-10.8)
[2024-06-17 07:42] LABS: Albumin Globulin Ratio 1.3 (0.9-2); Albumin Level 3.2 gm/dl (3.4-5.0); BUN Creatinine Ratio 16.9 (10-20); Bilirubin,Total 0.6 mg/dl (0.2-1.0); Calcium 8.1 mg/dl (8.6-10.3); Creatinine Clr Calc Pharmacy 102.6 ml/min; Est GFR (Non-African American) 98.4 ml/min; Globulin 2.5 gm/dl (2.5-4.0); Potassium 3.7 mmol/L (3.5-5.1); Total Protein 5.7 gm/dl (6.0-8.3)
--- NOTE | 2024-06-17 07:50 | Surgery Progress Note ---
Date of Service June 17, 2024 Assessment & Plan (1) Abdominal pain: Plan: Pt here w/ abdominal pain and CT concerning for possible small bowel diverticulitis WBC 7. Low grade temps 99-100F last night into this early AM again Pt clinically feels well and as though he is getting better each day Currently tolerating clears. Passing gas. less discomfort on exam Given low grade temps we will obtain a CT a/p with po/IV contrast today for further evaluation Will check up again after imaging performed and resulted as above. pt reports continuing to feel better however he has continues to have low grade fevers and ct today shows worsening small bowel inflammation abd: soft. minimal tenderness. unchanged from yesterday back down to NPO. continue antibiotics. still no urgent indication for surgery. will continue to follow along closely. (2) Abnormal computed tomography of abdomen and pelvis: Admission and Anticipated Discharge Date Admission Date: June 15, 2024 Subjective Patient reports feeling well and better each day. No nausea. Tolerating clears, endorses wishes for more to eat. + gas. Pain controlled and not worsening. Physical Exam Physical Exam: awake/alert, sitting up in bed Gastrointestinal (Abdomen): Inspection/Auscultation: abdomen not distended Percussion/Palpation: + abdomen tender (improving llq ttp) and abdomen soft; no guarding Results & Data Vital Signs (Past 12 Hours) Vital Signs Temp Pulse Resp BP Pulse Ox O2 Del Method 06/17/24 07:24 99.3 F 74 16 144/71 H 96 Room Air 06/16/24 20:09 98.8 F 79 14 147/83 H 94 Room Air PG Care Time/CCT Total # of Minutes Spent Total Time Spent with Patient: Total time spent is greater than 50% in coordination of care (as documented) at patient's floor/unit and/or counseling patient: Coding Level of Care Code 01877 SUB INP/OBS CARE 1/25MIN Diagnoses Abdominal pain R10.9 Abnormal computed tomography of abdomen and pelvis R93.5
[2024-06-17] MEDS: OPTIRAY 320 100ml IV ONE (09:52)
--- NOTE | 2024-06-17 11:00 | Hospitalist Progress Note ---
<Statement entered by Savita Castorena MD - 06/17/24 18:06> 58-year-old man admitted with possible jejunal diverticulitis, contained perforation similar on repeat CT 06/17 though inflammation has increased. Plan to continue IV antibiotics with pip-tazo, general surgery is consulting no surgical interventions recommended at this time. I note that he had a similar episode in 2020 also with jejunal diverticulitis. he did have colonoscopy in May 2022 with diverticulosis noted and polypectomy. Will discuss with surgeon what the long-term follow-up for this recurrent jejunal diverticulitis should be, would he benefit from resection of the affected segment. Date of Service June 17, 2024 Assessment & Plan (1) Gastroenteritis: Plan: -Patient with abdominal pain, fever, chills, and nausea that started 06/14. -reviewed CBC 06/17: WBC 7.75, hgb 12.4 -reviewed CMP 06/16: total bili 0.6, electrolytes/kidney function stable. -reviewed urinalysis 06/15: negative for UTI -stool panel pending -reviewed CTAP 06/15: multiple thickened loops of jejnum within left side of abdomen with surrounding fat stranding and mild mesenteric edema consistent with enteritis. 2 punctate foci of extra luminal gas adjacent to thickened loop of jejunum. Could represent sm focus of microperforation or mesenteric venous gas in setting of ischemic bowel. colonic and jejunal diverticulosis. no evidence for acute diverticulitis or bowel obstruction. -repeat CTAP 06/17 reviewed: inflammatory process involving loops of jejunum in left lateral abdomen. Numerous diverticula of small bowel, could represent nonspecific enteritis vs jejunal diverticulitis. degree of inflammation significantly increased from 06/15. Loculated extraluminal gas & fluid seen adjacent to inflamed jejunal loops. increased from previous and is highly suggestive of contained perforation. phelgmonous change w/ no orgnaized/renal drainable fluid collection. -surgery following, progress note reviewed 06/17 continue IVF and antibiotics downgrade to NPO no urgent indication for surgery -Toradol IV as needed for pain, Zofran as needed for nausea. AM CBC, BMP Plan Chronic conditions: Dyslipidemia: hold simvastatin while NPO, resume at time of discharge. Diet: clear liquids Code status: full code DVT ppx: SCDs Dispo: med/surg Admission and Anticipated Discharge Date Admission Date: June 15, 2024 Subjective Patient seen and examined this morning. Patient reports to be feeling well today. He states his abdominal pain is improving. He denies any nausea or vomiting. He is eager to advance his diet. Physical Exam 2 Constitutional: WD/WN, vitals as above Eyes: PERRL, conjunctivae normal, anicteric sclerae Respiratory: normal respiratory effort, lungs clear to auscultation Cardiovascular: RRR, no murmur, no edema Gastrointestinal (Abdomen): normal bowel sounds, soft, nontender, no hepatosplenomegaly Skin: no rashes, warm and dry Psychiatric: A+Ox3, euthymic affect Results & Data Results & Data Vital Signs (Past 12 Hours) Vital Signs Temp Pulse Resp BP Pulse Ox O2 Del Method 06/17/24 07:24 37.4 C 74 16 144/71 H 96 Room Air Laboratory Results 06/17/24 06:51 06/17/24 06:51 PG Care Time/CCT Total # of Minutes Spent Total Time Spent with Patient: Total time spent is greater than 50% in coordination of care (as documented) at patient's floor/unit and/or counseling patient: Coding Level of Care Code 27246 SUB INP/OBS CARE 3/50MIN Diagnoses Gastroenteritis K52.9
--- NOTE | 2024-06-17 12:12 | CT Scan Report ---
CT SCAN OF THE ABDOMEN AND PELVIS WITH IV CONTRAST CLINICAL HISTORY: Follow-up enteritis. COMPARISON STUDY: Abdominal CT dated 06/15/2024. TECHNIQUE: Following the IV administration of 94 cc of Optiray 320, CT scan of the abdomen and pelvi s is performed from the lung bases to the proximal femora. Images are reviewed in the axial, sagittal , and coronal planes. IV contrast was administered without complication. Oral contrast was utilized. A dose lowering technique was utilized adhering to the principles of ALARA. CT DOSE: 935.29 mGy.cm FINDINGS: Lung bases: The heart is normal in size and without pericardial effusion. There is mild bibasilar ate lectasis. There is trace left pleural effusion. Liver: The contrast-enhanced liver is normal in size, contour, and attenuation. There is no intrahepa tic biliary ductal dilatation. The hepatic veins and portal veins are patent. Gallbladder: Unremarkable. Spleen: Normal in size and attenuation. Pancreas: Unremarkable. Adrenal glands: Unremarkable. Kidneys: The contrast enhanced kidneys are normal in size and without hydronephrosis. The kidneys enh ance symmetrically. Abdominal vasculature: The abdominal aorta is normal in course and caliber noting mild to moderate at herosclerotic change. An infrarenal IVC filter is in placed. Bowel: There is mild colonic diverticulosis without CT evidence of acute diverticulitis. No bowel obs truction is seen. Enteric contrast reaches the colon. There is also significant diverticulosis of the small bowel. Again seen is marked wall thickening with surrounding inflammatory change an fluid invo lving loops of jejunum in the left lateral abdomen. Inflammatory change has significantly increased, and this likely represents a jejunal enteritis versus diverticulitis. Loculated extraluminal gas and fluid is seen on axial image #145. This likely represents contained perforation. No organized/drainab le fluid collection is seen at this time. The appendix is well-visualized and normal. Peritoneum: There is no intervertebral free air below the diaphragm. Loculated extraluminal gas is se en adjacent to inflamed loops of jejunum in the left mid abdomen. There is no abdominal ascites. Ther e is a fat-containing umbilical hernia. Lymphadenopathy: None. Pelvic viscera: The prostate gland is mildly enlarged and heterogeneous. The bladder wall appears thi ckened/trabeculated indicating chronic outlet obstruction. Skeletal structures: No lytic or blastic lesions are seen. IMPRESSION: 1. Again seen is an inflammatory process involving loops of jejunum in the left lateral abdomen. Ther e are numerous diverticula of the small bowel, and this could represent a nonspecific enteritis versu s jejunal diverticulitis. The degree of inflammation has significantly increased from 06/15/2024. 2. Loculated extraluminal gas and fluid is seen adjacent to the inflamed jejunal loops. This has incr eased from previous and is highly suggestive of contained perforation. 3. There is phlegmonous change with no organized/renal drainable fluid collection at this time. 4. Trace left pleural effusion. 5. Additional findings as above. ACT 112: Negative or not required by law. Electronically signed by: Yon Mathews M.D. 06/17/2024 12:10 PM
[2024-06-18 07:44] LABS: Hematocrit (blood only) 36.4 % (42.0-52.0); Hemoglobin 11.9 g/dl (14.0-18.0); Mean Corpuscular Hemoglobin 29.2 pg (25.0-34.0); Mean Corpuscular Hgb Conc 32.7 g/dL (32.0-36.0); Mean Corpuscular Volume 89.4 fL (80.0-100.0); Mean Platelet Volume 9.5 fL (9.4-12.4); Platelet Count 225 K/uL (130-400); RDW Coefficient of Variation 12.8 % (11.5-14.5); RDW Standard Deviation 42.5 fL (36.4-46.3); Red Blood Count 4.07 M/uL (4.70-6.10); White Blood Count 5.32 K/ul (4.8-10.8)
[2024-06-18 08:20] LABS: BUN Creatinine Ratio 12.7 (10-20); Calcium 8.1 mg/dl (8.6-10.3); Creatinine Clr Calc Pharmacy 107.8 ml/min; Est GFR (African American) 116.3 ml/min; Est GFR (Non-African American) 100.4 ml/min; Potassium 3.7 mmol/L (3.5-5.1)
--- NOTE | 2024-06-18 10:42 | Hospitalist Progress Note ---
Date of Service June 18, 2024 Assessment & Plan (1) Gastroenteritis: Plan: -Patient with abdominal pain, fever, chills, and nausea that started 06/14. -reviewed CBC 06/18: WBC 5.32, hgb 11.9 -reviewed BMP 06/18:electrolytes/kidney function stable. -reviewed urinalysis 06/15: negative for UTI -stool panel pending -reviewed CTAP 06/15: multiple thickened loops of jejnum within left side of abdomen with surrounding fat stranding and mild mesenteric edema consistent with enteritis. 2 punctate foci of extra luminal gas adjacent to thickened loop of jejunum. Could represent sm focus of microperforation or mesenteric venous gas in setting of ischemic bowel. colonic and jejunal diverticulosis. no evidence for acute diverticulitis or bowel obstruction. -repeat CTAP 06/17 reviewed: inflammatory process involving loops of jejunum in left lateral abdomen. Numerous diverticula of small bowel, could represent nonspecific enteritis vs jejunal diverticulitis. degree of inflammation significantly increased from 06/15. Loculated extraluminal gas & fluid seen adjacent to inflamed jejunal loops. increased from previous and is highly suggestive of contained perforation. phelgmonous change w/ no orgnaized/renal drainable fluid collection. -surgery following, progress note reviewed 06/17 continue IVF and antibiotics advance to clear liquids, if tolerates can advance diet 06/18 no urgent indication for surgery -Toradol IV as needed for pain, Zofran as needed for nausea. AM CBC, BMP Plan Chronic conditions: Dyslipidemia: hold simvastatin while NPO, resume at time of discharge. Diet: clear liquids Code status: full code DVT ppx: SCDs Dispo: med/surg Admission and Anticipated Discharge Date Admission Date: June 15, 2024 Subjective Patient seen and examined this morning. Patient denied any abdominal pain, nausea, or vomiting. He is eager to advance his diet so that he can return home. Denies any additional complaints. Physical Exam 2 Constitutional: WD/WN, vitals as above Eyes: PERRL, conjunctivae normal, anicteric sclerae Respiratory: normal respiratory effort, lungs clear to auscultation Cardiovascular: RRR, no murmur, no edema Gastrointestinal (Abdomen): normal bowel sounds, soft, nontender, no hepatosplenomegaly Skin: no rashes, warm and dry Psychiatric: A+Ox3, euthymic affect Results & Data Results & Data Vital Signs (Past 12 Hours) Vital Signs Temp Pulse Resp BP Pulse Ox O2 Del Method 06/18/24 07:00 36.5 C 53 L 18 126/80 96 Room Air Laboratory Results 06/18/24 07:02 06/18/24 07:02 PG Care Time/CCT Total # of Minutes Spent Total Time Spent with Patient: Total time spent is greater than 50% in coordination of care (as documented) at patient's floor/unit and/or counseling patient: Coding Level of Care Code 77196 SUB INP/OBS CARE 2/35MIN Diagnoses Gastroenteritis K52.9
--- NOTE | 2024-06-18 14:15 | Surgery Progress Note ---
Date of Service June 18, 2024 Assessment & Plan (1) Diverticulitis of jejunum: Plan: clinically improved wbc normal afebrile will restart clears. if no issues will advance diet tomorrow. Admission and Anticipated Discharge Date Admission Date: June 15, 2024 Subjective pt seen. feeling well. states no pain today. no fevers Physical Exam Constitutional: WD/WN, vitals as above no acute distress and not ill appearing Eyes: PERRL, conjunctivae normal, anicteric sclerae EOM intact bilaterally ENMT: external ear and nose normal, oropharynx normal Ears: no hearing impairment Neck: trachea midline, no thyromegaly Respiratory: normal respiratory effort; no respiratory distress and does not use accessory muscles Cardiovascular: Rate/Rhythm: regular rate and regular rhythm Gastrointestinal (Abdomen): soft. nt. nd. much improved from admission Skin: no rashes, warm and dry Psychiatric: Orientation: alert, oriented x 3 and cooperative Results & Data Vital Signs (Past 12 Hours) Vital Signs Temp Pulse Resp BP Pulse Ox O2 Del Method 06/18/24 07:00 36.5 C 53 L 18 126/80 96 Room Air PG Care Time/CCT Total # of Minutes Spent Total Time Spent with Patient: Total time spent is greater than 50% in coordination of care (as documented) at patient's floor/unit and/or counseling patient: Coding Level of Care Code 59574 SUB INP/OBS CARE 11/21MIN Diagnoses Diverticulitis of jejunum K57.12
[2024-06-18 18:04] LABS: Adenovirus F 40/41 PCR Not Detected (NotDetected); Astrovirus PCR Not Detected (NotDetected); Campylobacter PCR Not Detected (NotDetected); Cryptosporidium PCR Not Detected (NotDetected); Cyclospora cayetanensis PCR Not Detected (NotDetected); Entamoeba histolytica PCR Not Detected (NotDetected); Enteroaggregative E.coli(EAEC) Not Detected (NotDetected); Enteropathogenic E.coli (EPEC) Not Detected (NotDetected); Enterotoxigenic E.coli (ETEC) Not Detected (NotDetected); Giardia lamblia PCR Not Detected (NotDetected); Norovirus GI/GII PCR Not Detected (NotDetected); Plesiomonas shigelloides PCR Not Detected (NotDetected); Rotavirus A PCR Not Detected (NotDetected); Salmonella PCR Not Detected (NotDetected); Sapovirus PCR Not Detected (NotDetected); Shiga-like Toxin E.coli (STEC) Not Detected (NotDetected); Shigella/Enteroinvasive E.coli Not Detected (NotDetected); Vibrio cholerae PCR Not Detected (NotDetected); Vibrio species PCR Not Detected (NotDetected); Yersinia enterocolitica PCR Not Detected (NotDetected)
--- NOTE | 2024-06-19 08:02 | Surgery Progress Note ---
Date of Service June 19, 2024 Assessment & Plan (1) Diverticulitis of jejunum: Plan: Pt here w/ abdominal pain and CT concerning for possible small bowel diverticulitis Labs this AM are pending, but WBC has been normal over last few days. Vitals stable, temps 98-99F, no true fevers He has been doing very well outside of an episode of pain this AM that has since passed He is having + bowel function has been tolerating clears, would leave on clears for time being and we will re- assess later this AM Continue IV abx while in house Dr. kelly covering the weekend as above. was doing very well. had severe pain again after increasing diet. afebrile and wbc 5... will back down to NPO. no food over weekend. will repeat ct saturday. if no improvement by saturday will likely need surgical intervention. Admission and Anticipated Discharge Date Admission Date: June 15, 2024 Subjective Patient reports feeling a bit worse than yesterday, woke up this AM with a sharp episode of pain. It self-resolved at this point and now feels okay. He denies nausea/vomiting. Continues to pass gas and had a BM yesterday. Physical Exam Physical Exam: awake/alert, no distress Gastrointestinal (Abdomen): Percussion/Palpation: + abdomen tender (discomfort in LLQ region) and abdomen soft Results & Data Vital Signs (Past 12 Hours) Vital Signs Temp Pulse Resp BP Pulse Ox O2 Del Method 06/18/24 20:30 98.2 F 60 16 175/95 H 97 Room Air PG Care Time/CCT Total # of Minutes Spent Total Time Spent with Patient: Total time spent is greater than 50% in coordination of care (as documented) at patient's floor/unit and/or counseling patient: Coding Level of Care Code 14187 SUB INP/OBS CARE 11/21MIN Diagnoses Diverticulitis of jejunum K57.12
[2024-06-19 08:14] LABS: Mean Corpuscular Hemoglobin 29.5 pg (25.0-34.0); Mean Corpuscular Hgb Conc 33.3 g/dL (32.0-36.0); Mean Corpuscular Volume 88.6 fL (80.0-100.0); Mean Platelet Volume 9.4 fL (9.4-12.4); Platelet Count 247 K/uL (130-400); RDW Coefficient of Variation 12.8 % (11.5-14.5); RDW Standard Deviation 41.7 fL (36.4-46.3)
[2024-06-19 08:41] LABS: Calcium 8.4 mg/dl (8.6-10.3); Potassium 3.3 mmol/L (3.5-5.1)
[2024-06-19 08:46] LABS: BUN Creatinine Ratio 8.9 (10-20); Creatinine Clr Calc Pharmacy 107.8 ml/min; Est GFR (African American) 116.3 ml/min; Est GFR (Non-African American) 100.4 ml/min
[2024-06-19] MEDS: amLODIPine BESYLATE 5 MG TAB PO ONE (09:12)
[2024-06-19] MEDS: ONDANSETRON INJ 2 MG/ML 2 ML VIAL IV PRN (09:30)
[2024-06-19] MEDS: HYDROmorphone INJ 0.5 MG/0.5 ML SYR IV STA (10:10)
[2024-06-19] MEDS ORDERED: TPN/PPN CONSULT PHARMACY PRN (10:50)
[2024-06-19] MEDS ORDERED: TPN/PPN CONSULT PHARMACY STA (11:00)
--- NOTE | 2024-06-19 11:17 | Hospitalist Progress Note ---
Date of Service June 19, 2024 Assessment & Plan (1) Gastroenteritis: Plan: -Patient with abdominal pain, fever, chills, and nausea that started 06/14. -reviewed CBC 06/19: WBC 5.50, hgb 13.0 -reviewed BMP 06/19:potassium low, repleted, kidney function stable -reviewed urinalysis 06/15: negative for UTI -stool panel reviewed 06/19: negative -reviewed CTAP 06/15: multiple thickened loops of jejnum within left side of abdomen with surrounding fat stranding and mild mesenteric edema consistent with enteritis. 2 punctate foci of extra luminal gas adjacent to thickened loop of jejunum. Could represent sm focus of microperforation or mesenteric venous gas in setting of ischemic bowel. colonic and jejunal diverticulosis. no evidence for acute diverticulitis or bowel obstruction. -repeat CTAP 06/17 reviewed: inflammatory process involving loops of jejunum in left lateral abdomen. Numerous diverticula of small bowel, could represent nonspecific enteritis vs jejunal diverticulitis. degree of inflammation significantly increased from 06/15. Loculated extraluminal gas & fluid seen adjacent to inflamed jejunal loops. increased from previous and is highly suggestive of contained perforation. phelgmonous change w/ no orgnaized/renal drainable fluid collection. -surgery following, progress note reviewed 06/19 continue IVF and antibiotics due to severe pain 06/19 downgraded to NPO started PPN 06/19 if condition does not improve by 06/22 plan to re-scan no urgent indication for surgery -Toradol IV as needed for pain, Zofran as needed for nausea. added IV Diluadid q6H for pain 06/19 AM CBC, BMP (2) Hypertension: Plan: Since patient presented to the ED he has remained mildly hypertensive. BP escalated to 186/86 -06/19 s/p 2.5mg PO amlodipine may need to consider a daily regimen if BP continues to remain elevated. Plan Chronic conditions: Dyslipidemia: hold simvastatin while NPO, resume at time of discharge. Diet: NPO, PPN Code status: full code DVT ppx: SCDs Dispo: med/surg Admission and Anticipated Discharge Date Admission Date: June 15, 2024 Subjective Patient seen and examined this morning. Patient complaining of severe abdominal pain this AM. He also had some nausea and episode of vomiting. He continues to pass gas. Physical Exam 2 Constitutional: WD/WN, vitals as above Eyes: PERRL, conjunctivae normal, anicteric sclerae Respiratory: normal respiratory effort, lungs clear to auscultation Cardiovascular: RRR, no murmur, no edema Gastrointestinal (Abdomen): +tenderness LLQ region, + BS, abdomen so ft Psychiatric: A+Ox3, euthymic affect Results & Data Results & Data Vital Signs (Past 12 Hours) Vital Signs Temp Pulse Resp BP Pulse Ox O2 Del Method 06/19/24 08:16 36.8 C 49 L 18 186/86 H 94 Room Air Laboratory Results 06/19/24 07:33 06/19/24 07:33 PG Care Time/CCT Total # of Minutes Spent Total Time Spent with Patient: Total time spent is greater than 50% in coordination of care (as documented) at patient's floor/unit and/or counseling patient: Coding Level of Care Code 47724 SUB INP/OBS CARE 3/50MIN Diagnoses Gastroenteritis K52.9 Primary hypertension I10 Hypertension type: primary hypertension (2) Hypertension Hypertension type: primary hypertension Qualified Code(s): I10 - Essential (primary) hypertension
[2024-06-19 11:30] LABS: Magnesium 1.8 mg/dl (1.7-2.4); Phosphorus 2.9 mg/dl (2.5-4.9)
--- NOTE | 2024-06-19 12:05 | Pharmacy Report ---
Pharmacy Initial PN Consult Nt - Date of Service June 19, 2024 - Scope Pharmacy has been consulted on this date to manage parenteral nutrition orders and order appropriate labs. As part of the Nutrition Support Team Guidelines, pharmacy will work in conjunction with dietary when determining the patients caloric needs. - Subjective * The patient is a 58 year old Male admitted on 06/15/[address] of abd/pelvis, abd pain, vomiting. * Patient is to receive parenteral nutrition for prolonged NPO status - Objective Vascular Access: * Patient currently has a peripheral line * Peripheral line was confirmed by IV Team to be acceptable for PPN use on 06/19 Height & Weight (Last Documented) Height 5 ft 10 in Weight 74.1 kg Diet Order(s) 06/19/24 09:20 NPO Intake & Ouput (24hrs) 06/18/24 06/19/24 06/20/24 06:59 06:59 06:59 Intake Total 3491.667 / 3491.667 2254.167 / 2254.167 Output Total 450 / 450 Balance 3041.667 / 3041.667 2254.167 / 2254.167 Selected Laboratory Results 06/19/24 07:33 Sodium 139 Potassium 3.3 L Chloride 104 Carbon Dioxide 28 Anion Gap 7 BUN 7 Creatinine 0.79 Est GFR ( Amer) 116.3 Est GFR (Non-Af Amer) 100.4 BUN/Creatinine Ratio 8.9 L Glucose 103 H Calcium 8.4 L Phosphorus 2.9 Magnesium 1.[address] - Follow Up Nutrition Assessment Start: 06/18/24 1 0:08 Freq: Status: Active Protocol: Document 06/19/24 11:09 WN (Rec: 06/19/24 11:19 WN [id number]) RD - Initial Nutrition Assessment Start: 06/18/24 09:59 Freq: Status: Active Protocol: Document 06/18/24 09:59 WN (Rec: 06/18/24 10:07 WN [id number]) - Assessment & Plan Assessment: * Appreciate dietitians recommendations for macronutrients. Discussed with provider and no restrictions with fluid. Will plan to start PPN today at goal AA. K low this AM, provider replacing with IV K prior to PPN start. * Plan to start electrolytes at standard doses Plan: * For Day #1 of PPN administration, the following will be ordered: * Macronutrients: * Amino Acids: 85 grams/day * Dextrose: 100 grams/day * Lipids: 50 grams/day * Micronutrients: * Sodium chloride: 80 mEq/day * Sodium acetate: 80 mEq/day * Potassium phosphate: 21 mMol/day * Potassium chloride: 20 mEq/day * Magnesium sulfate: 8.12 mEq/day * Calcium gluconate: 4.65 mEq/day * Multivitamins: 10 mL/day * Trace elements: 1 mL/day * Thiamine: 100 mg/day * Folic Acid: 1 mg/day * Total volume of 2113 mL will be infused over 24 hours and will provide 1180 kcal/day * Patient is on PPN which has a maximum mOsm/L of 900. Final osmolarity of current solution is 840 mOsm/L. * Labs will be ordered per PN protocol. * Pharmacy will follow and adjust PN orders on a daily basis. Thank you!
[2024-06-19] MEDS: POTASSIUM CHLORIDE / WTR 10 MEQ/100 ML PLCT IV SCH (12:32)
[2024-06-19] MEDS: SODIUM CHLORIDE 0.9% 1,000 ML IV SCH (14:16)
[2024-06-19] MEDS ORDERED: DEXTROSE 10% 1,000 ML IV PRN (16:00)
[2024-06-19] MEDS: [UNRECOGNIZED DRUG - OTHER] IV SCH (16:21)
[2024-06-19] MEDS: PERIPHERAL TPN IV SCH (16:21)
[2024-06-19] MEDS: CLINOLIPID 20% IV FAT EMULSION 250 ML IV SCH (16:21)
[2024-06-19] MEDS: HYDROmorphone INJ 0.5 MG/0.5 ML SYR IV PRN (17:12)
[2024-06-19] MEDS ORDERED: Nursing to Pharmacy Communication SCH (17:15)
[2024-06-19] MEDS: STOP CLINOLIPID SCH (22:04)
[2024-06-20 06:40] LABS: Hematocrit (blood only) 38.3 % (42.0-52.0); Hemoglobin 12.7 g/dl (14.0-18.0); Mean Corpuscular Hemoglobin 29.4 pg (25.0-34.0); Mean Corpuscular Hgb Conc 33.2 g/dL (32.0-36.0); Mean Corpuscular Volume 88.7 fL (80.0-100.0); Mean Platelet Volume 9.5 fL (9.4-12.4); Platelet Count 282 K/uL (130-400); RDW Coefficient of Variation 12.5 % (11.5-14.5); RDW Standard Deviation 41.3 fL (36.4-46.3); Red Blood Count 4.32 M/uL (4.70-6.10); White Blood Count 8.23 K/ul (4.8-10.8)
[2024-06-20 06:56] LABS: BUN Creatinine Ratio 10.7 (10-20); Calcium 8.3 mg/dl (8.6-10.3); Creatinine Clr Calc Pharmacy 113.6 ml/min; Est GFR (African American) 118.9 ml/min; Est GFR (Non-African American) 102.5 ml/min; Magnesium 1.9 mg/dl (1.7-2.4); Phosphorus 3.4 mg/dl (2.5-4.9); Potassium 3.5 mmol/L (3.5-5.1)
--- NOTE | 2024-06-20 13:39 | Hospitalist Progress Note ---
Date of Service June 20, 2024 Assessment & Plan (1) Gastroenteritis: Plan: -Patient with abdominal pain, fever, chills, and nausea that started 06/14. -stool panel: negative -CTAP 06/15: multiple thickened loops of jejnum within left side of abdomen w/ surrounding fat stranding and mild mesenteric edema consistent with enteritis. 2 punctate foci of extra luminal gas adjacent to thickened loop of jejunum. Could represent sm focus of microperforation or mesenteric venous gas in setting of ischemic bowel. colonic and jejunal diverticulosis. no evidence for acute diverticulitis or bowel obstruction. -repeat CTAP 06/17: inflammatory process involving loops of jejunum in left lateral abdomen. Numerous diverticula of small bowel, could represent nonspecific enteritis vs jejunal diverticulitis. degree of inflammation significantly increased from 06/15. Loculated extraluminal gas & fluid seen adjacent to inflamed jejunal loops. increased from previous and is highly suggestive of contained perforation. phelgmonous change w/ no orgnaized/renal drainable fluid collection. -surgery following - NPO with PPN - continue zosyn - Rescan saturday and determine if need for OR Pain control: IV tylenol and diluadid AM CBC, BMP, Mag and Phos (2) Hypertension: Plan: Since patient presented to the ED he has remained mildly hypertensive. suspect secondary to pain and infection, will continue to monitor as condition improves Not on any daily medications outpatient Plan Chronic conditions: Dyslipidemia: hold simvastatin while NPO, resume as able Diet: NPO, PPN DVT ppx: SCDs Dispo: continued inpatient stay Admission and Anticipated Discharge Date Admission Date: June 15, 2024 Subjective Patient lying in bed. States that pain comes and goes. Dilaudid is effective for pain. Passing gas, last bowel movement 3 days ago. Review of Systems Review of Systems: All systems reviewed & are unremarkable except as noted in Subjective Physical Exam Physical Exam: General: NAD, VS as above Resp: normal respiratory effort, lungs clear to auscultation CV: RRR, no murmur, Abd: normal bowel sounds, Tender, worse in left lower quadrant. No rebound, mild distention Extremities: Moves all extremities, no edema Neuro: A&O x3, Results & Data Results & Data Vital Signs (Past 12 Hours) Vital Signs Temp Pulse Resp BP Pulse Ox O2 Del Method 06/20/24 07:05 36.8 C 59 L 18 162/87 H 93 Room Air Laboratory Results CBC, chemistry, mag, Phos reviewed PG Care Time/CCT Total # of Minutes Spent Total Time Spent with Patient: Total time spent is greater than 50% in coordination of care (as documented) at patient's floor/unit and/or counseling patient: Coding Level of Care Code 89049 SUB INP/OBS CARE 3/50MIN Diagnoses Gastroenteritis K52.9 Primary hypertension I10 Hypertension type: primary hypertension (2) Hypertension Hypertension type: primary hypertension Qualified Code(s): I10 - Essential (primary) hypertension
[2024-06-20] MEDS: ACETAMINOPHEN 1,000 MG/100 ML VIAL IV PRN (14:16)
[2024-06-20] MEDS: PERIPHERAL TPN IV SCH (15:51)
[2024-06-20] MEDS: [UNRECOGNIZED DRUG - OTHER] IV SCH (15:51)
[2024-06-20] MEDS: CLINOLIPID 20% IV FAT EMULSION 250 ML IV SCH (15:51)
--- NOTE | 2024-06-20 19:47 | Surgery Progress Note ---
Date of Service June 20, 2024 Assessment & Plan (1) Diverticulitis of jejunum: Plan: Pt here w/ abdominal pain and CT concerning for possible small bowel diverticulitis. Remains afebrile without leukocytosis, HD stable and pain controlled. At this time he remains overall NPO, is having sips of water and ice chips. On TPN via right arm PICC Continue IV abx. Possible CT planned for Saturday per initial consulting surgeon (Dr. Alberto) who will plan further pending those results if patient is not significantly improved by then I will continue to follow this weekend Admission and Anticipated Discharge Date Admission Date: June 15, 2024 Subjective Patient states he feels the same today. No worse no better although he does deny current abdominal pain. States he has occasional pains. Denies N/V and states he is passing flatus. Physical Exam Gastrointestinal (Abdomen): Inspection/Auscultation: abdomen not distended Nontender to light palpation today. Results & Data Vital Signs (Past 12 Hours) Vital Signs Temp Pulse Resp BP Pulse Ox O2 Del Method 06/20/24 17:36 37.1 C 58 L 18 185/100 H 93 Room Air PG Care Time/CCT Total # of Minutes Spent Total Time Spent with Patient: Total time spent is greater than 50% in coordination of care (as documented) at patient's floor/unit and/or counseling patient: Coding Level of Care Code 06527 SUB INP/OBS CARE 25MIN Diagnoses Diverticulitis of jejunum K57.12
[2024-06-20] MEDS: STOP CLINOLIPID SCH (22:00)
[2024-06-21 06:07] LABS: Hematocrit (blood only) 41.7 % (42.0-52.0); Hemoglobin 14.2 g/dl (14.0-18.0); Mean Corpuscular Hemoglobin 29.4 pg (25.0-34.0); Mean Corpuscular Hgb Conc 34.1 g/dL (32.0-36.0); Mean Corpuscular Volume 86.3 fL (80.0-100.0); Platelet Count 341 K/uL (130-400); RDW Coefficient of Variation 12.5 % (11.5-14.5); RDW Standard Deviation 39.8 fL (36.4-46.3); Red Blood Count 4.83 M/uL (4.70-6.10); White Blood Count 8.67 K/ul (4.8-10.8)
[2024-06-21 06:30] LABS: BUN Creatinine Ratio 14.9 (10-20); Calcium 8.7 mg/dl (8.6-10.3); Creatinine Clr Calc Pharmacy 115.1 ml/min; Est GFR (African American) 119.5 ml/min; Est GFR (Non-African American) 103.1 ml/min; Magnesium 2.1 mg/dl (1.7-2.4); Phosphorus 3.7 mg/dl (2.5-4.9); Potassium 3.9 mmol/L (3.5-5.1)
[2024-06-21] MEDS: amLODIPine BESYLATE 5 MG TAB PO ONE (09:06)
--- NOTE | 2024-06-21 09:54 | Surgery Progress Note ---
Date of Service June 21, 2024 Assessment & Plan (1) Diverticulitis of jejunum: Plan: Pt here w/ abdominal pain and CT concerning for possible small bowel diverticulitis. Remains afebrile without leukocytosis, hypertensive and pain controlled with medication. Continues to pass flatus, no BM At this time he remains overall NPO, is having sips of water and ice chips. On TPN via right arm PICC Continue IV abx. CT planned for Saturday per initial consulting surgeon (Dr. Alberto) who will plan further pending those results and patient clinical status at that time. We will place the order for the CT A/P w/wo contrast for tomorrow Surgery will continue to follow Admission and Anticipated Discharge Date Admission Date: June 15, 2024 Subjective Mr. Kothari was seen and examined this am. He states he continues to have occasional nausea, received antiemetic yesterday and today. States he had some vomiting yesterday. Also states he still gets occasional episodes of mild pain for which he does not request pain medication but also has occasional more significant pain requiring pain medication. He says he just had pain medication this am. Physical Exam Constitutional: not diaphoretic afebrile TPN on via PICC Respiratory: normal respiratory effort; no respiratory distress, no labored breathing and does not use accessory muscles Gastrointestinal (Abdomen): Had an active pain episode during my interview. Abdomen painful at this time Results & Data Vital Signs (Past 12 Hours) Vital Signs Temp Pulse Resp BP Pulse Ox O2 Del Method 06/21/24 09:01 36.5 C 71 18 175/111 H 94 Room Air PG Care Time/CCT Total # of Minutes Spent Total Time Spent with Patient: Total time spent is greater than 50% in coordination of care (as documented) at patient's floor/unit and/or counseling patient: Coding Level of Care Code 59414 SUB INP/OBS CARE 11/21MIN Diagnoses Diverticulitis of jejunum K57.12
[2024-06-21] MEDS ORDERED: PROMETHAZINE HCL 25 MG TAB PO PRN (10:45)
--- NOTE | 2024-06-21 10:48 | Hospitalist Progress Note ---
Date of Service June 21, 2024 Assessment & Plan (1) Gastroenteritis: Plan: -Patient with abdominal pain, fever, chills, and nausea that started 06/14. -stool panel: negative -CTAP 06/15: multiple thickened loops of jejnum within left side of abdomen w/ surrounding fat stranding and mild mesenteric edema consistent with enteritis. 2 punctate foci of extra luminal gas adjacent to thickened loop of jejunum. Could represent sm focus of microperforation or mesenteric venous gas in setting of ischemic bowel. colonic and jejunal diverticulosis. no evidence for acute diverticulitis or bowel obstruction. -repeat CTAP 06/17: inflammatory process involving loops of jejunum in left lateral abdomen. Numerous diverticula of small bowel, could represent nonspecific enteritis vs jejunal diverticulitis. degree of inflammation significantly increased from 06/15. Loculated extraluminal gas & fluid seen adjacent to inflamed jejunal loops. increased from previous and is highly suggestive of contained perforation. phelgmonous change w/ no orgnaized/renal drainable fluid collection. -surgery following - NPO with PPN - continue zosyn - Rescan saturday and determine if need for OR Pain control: IV tylenol and Dilaudid Nausea: zofran and phenergran AM BMP, Mag and Phos (2) Hypertension: Plan: Since patient presented to the ED he has remained mildly hypertensive. suspect secondary to pain and infection, will continue to monitor as condition improves Not on any daily medications outpatient amlodipine 5mg given 8 AM - will reassess daily with worsening pain/nausea. Plan Chronic conditions: Dyslipidemia: hold simvastatin while NPO, resume as able Diet: NPO, PPN DVT ppx: SCDs Dispo: continued inpatient stay Admission and Anticipated Discharge Date Admission Date: June 15, 2024 Subjective Patient seen this morning, having more pain and nausea. states he was told by the surgery team plan for likely surgery on saturday Dilaudid is effective for pain Review of Systems Review of Systems: All systems reviewed & are unremarkable except as noted in Subjective Physical Exam Physical Exam: General: NAD, VS as above, ill appearing, nauseous during encounter Resp: normal respiratory effort, lungs clear to auscultation CV: RRR, no murmur, Abd: normal bowel sounds, Tender, worse in left lower quadrant. No rebound, mild distention Extremities: Moves all extremities, no edema Neuro: A&O x3, Results & Data Results & Data Vital Signs (Past 12 Hours) Vital Signs Temp Pulse Resp BP Pulse Ox O2 Del Method 06/21/24 09:01 36.5 C 71 18 175/111 H 94 Room Air Laboratory Results CBC and chemistry reviewed PG Care Time/CCT Total # of Minutes Spent Total Time Spent with Patient: Total time spent is greater than 50% in coordination of care (as documented) at patient's floor/unit and/or counseling patient: Coding Level of Care Code 85077 SUB INP/OBS CARE 3/50MIN Diagnoses Gastroenteritis K52.9 Primary hypertension I10 Hypertension type: primary hypertension (2) Hypertension Hypertension type: primary hypertension Qualified Code(s): I10 - Essential (primary) hypertension
[2024-06-21] MEDS: HYDROmorphone INJ 0.5 MG/0.5 ML SYR IV PRN (14:18)
[2024-06-21] MEDS: [UNRECOGNIZED DRUG - OTHER] IV SCH (15:59)
[2024-06-21] MEDS: PERIPHERAL TPN IV SCH (15:59)
[2024-06-21] MEDS: CLINOLIPID 20% IV FAT EMULSION 250 ML IV SCH (16:00)
[2024-06-21] MEDS: ONDANSETRON INJ 2 MG/ML 2 ML VIAL IV PRN (18:01)
[2024-06-22 07:05] LABS: Calcium 8.7 mg/dl (8.6-10.3)
[2024-06-22 07:11] LABS: BUN Creatinine Ratio 15.6 (10-20); Creatinine Clr Calc Pharmacy 110.6 ml/min; Est GFR (African American) 117.6 ml/min; Est GFR (Non-African American) 101.4 ml/min; Phosphorus 3.1 mg/dl (2.5-4.9)
--- NOTE | 2024-06-22 08:33 | Surgery Progress Note ---
Date of Service June 22, 2024 Assessment & Plan (1) Diverticulitis of jejunum: Plan: He is clearly failing conservative management. Discussed his options. I suspect he will need a partial small bowel resection of the affected area. We discussed potential risks which include bleeding, infection, injury to another organ, anastomotic leak or stricture, DVT, PE, DC, CVA etc. Following our discussion I answered all of his questions. I will need to check with the operating room and my schedule to accommodate this. Will either be later today or tomorrow. Admission and Anticipated Discharge Date Admission Date: June 15, 2024 Subjective Patient seen. He is not getting any better continues to have the periumbilical pain. No improvement since Saturday despite not eating. He did have 1 episode of emesis this morning. Physical Exam Constitutional: WD/WN, vitals as above no acute distress and not ill appearing Eyes: PERRL, conjunctivae normal, anicteric sclerae EOM intact bilaterally ENMT: external ear and nose normal, oropharynx normal Ears: no hearing impairment Neck: trachea midline, no thyromegaly Respiratory: normal respiratory effort; no respiratory distress and does not use accessory muscles Cardiovascular: Rate/Rhythm: regular rate and regular rhythm Gastrointestinal (Abdomen): Soft. Positive periumbilical tenderness. Positive guarding. No peritonitis. Skin: no rashes, warm and dry Psychiatric: Orientation: alert, oriented x 3 and cooperative Results & Data Vital Signs (Past 12 Hours) Vital Signs Temp Pulse Resp BP Pulse Ox O2 Del Method 06/22/24 07:35 36.7 C 69 18 148/83 H 94 Room Air 06/21/24 22:42 Room Air 06/21/24 21:06 36.9 C 74 15 155/92 H 93 Room Air PG Care Time/CCT Total # of Minutes Spent Total Time Spent with Patient: Total time spent is greater than 50% in coordination of care (as documented) at patient's floor/unit and/or counseling patient: Coding Level of Care Code 15785 SUB INP/OBS CARE MIN Diagnoses Diverticulitis of jejunum K57.12
[2024-06-22] MEDS: OPTIRAY 320 100ml IV ONE (10:35)
--- NOTE | 2024-06-22 11:25 | CT Scan Report ---
CT OF THE ABDOMEN AND PELVIS WITH CONTRAST CLINICAL HISTORY: Small bowel diverticulitis. COMPARISON STUDY: CT of the abdomen and pelvis June 17, 2024. TECHNIQUE: Following IV administration of 93 mL of Optiray, axial images of the abdomen and pelvis we re obtained from the lung bases to the proximal femurs. Images were reviewed in the axial, sagittal, and coronal planes. IV contrast was administered without complication. Automated exposure control wa s utilized for the study. A dose lowering technique was utilized adhering to the principles of ALARA . CT DOSE: 783. mGy.cm FINDINGS: Lung bases are unremarkable. Liver, spleen, adrenal glands, kidneys and pancreas are unrema rkable. There is no biliary or pancreatic ductal dilatation. Subcentimeter right renal lesion is too small to characterize but is likely benign. IVC filter is in place. A small amount of abdominal and p elvic ascites has increased since CT of June 17, 2024. Multiple loops of mildly dilated fluid-fille d jejunum are noted. Small bowel loops measure up to 3.7 cm in caliber. Left upper quadrant inflammat ion is similar to prior CT. Extraluminal focus of gas measuring 2.9 x 1.9 cm within the left upper qu adrant, adjacent to jejunal loops, within the mesentery, is again noted. Mesenteric inflammation is a gain noted with mild wall thickening of several jejunal loops. The amount of fluid within this collec tion has decreased. No new collections are present. A blind-ending 2.7 cm focus arising from a jejuna l loop on image 156 of 377 may reflect an an inflamed jejunal diverticulum. There are multiple jejuna l diverticula. There is an apparent 2.7 x 1.9 cm intraluminal object within the jejunum on image 246 of 377. This may represent a transition point. There is sigmoid diverticulosis. No evidence for acute diverticulitis. No evidence for acute appendicitis. Major vasculature is patent. IMPRESSION: 1. Persistent left upper quadrant inflammation, similar to prior CT. Decrease in size of a gas contai jeff mesenteric fluid collection consistent with a contained perforation. The findings suggest a perf orated jejunal diverticulitis. No new fluid collections. Increase in a small amount of ascites. 2. Mild small bowel dilatation with possible intraluminal object within the jejunum measuring 2.7 x 1 .9 cm which may result in a transition point. This intraluminal object is indeterminate although may represent stool. The findings may reflect a partial small bowel obstruction or ileus. Short-term imag ing follow-up is recommended. ACT 112: Negative or not required by law. Electronically signed by: Cj Cardenas M.D. 06/22/2024 11:22 AM
--- NOTE | 2024-06-22 13:17 | Pharmacy Report ---
Pharmacy PN Follow-up Note - Date of Service June 22, 2024 - Subjective Patient is currently on day #4 of PPN for prolonged NPO. - Objective Height & Weight (Last Documented) Height 5 ft 10 in Weight 78.4 kg Diet Order(s) 06/19/24 09:20 NPO Intake & Ouput (24hrs) 06/21/24 06/22/24 06/23/24 06:59 06:59 06:59 Intake Total 2819.467 / 2819.467 3209.2 / 3209.2 100 / 100 Output Total 100 / 100 301 / 301 Balance 2719.467 / 2719.467 2908.2 / 2908.2 100 / 100 Selected Laboratory Results 06/22/24 05:44 Sodium 136 Potassium 4.0 Chloride 100 Carbon Dioxide 30 Anion Gap 6 BUN 12 Creatinine 0.77 Est GFR ( Amer) 117.6 Est GFR (Non-Af Amer) 101.4 BUN/Creatinine Ratio 15.6 Glucose 120 H Calcium 8.7 Phosphorus 3.1 Magnesium 2.0 - Assessment & Plan Assessment: * Continuing on PPN, conservative management failing per progress notes, repeat CT suggesting perforated jejunal diverticulitis. * Minor adjustments to PPN electrolytes today, aim for balanced chloride content * Labs within normal limits today Plan: * For Day #4 of PPN administration, the following will be ordered: * Macronutrients: * Amino Acids: 85 grams/day * Dextrose: 100 grams/day * Lipids: 50 grams/day * Micronutrients: * Sodium chloride: 100 mEq/day * Sodium acetate: 80 mEq/day * Potassium phosphate: 12 mMol/day * Potassium chloride: 40 mEq/day * Magnesium sulfate: 4.06 mEq/day * Calcium gluconate: 4.65 mEq/day * Multivitamins: 10 mL/day * Trace elements: 1 mL/day * Thiamine: 100 mg/day * Folic Acid: 1 mg/day * Total volume of 2127 mL will be infused over 24 hours and will provide 1180 kcal/day * Patient is on PPN which has a maximum mOsm/L of 900. Final osmolarity of current solution is 860.5 mOsm/L. * Labs will be ordered per PN protocol. * Pharmacy will follow and adjust PN orders on a daily basis. Thank you!
--- NOTE | 2024-06-22 14:39 | Hospitalist Progress Note ---
Date of Service June 22, 2024 Assessment & Plan (1) Gastroenteritis: Plan: -Patient with abdominal pain, fever, chills, and nausea that started 06/14. -stool panel: negative -CTAP 06/15: multiple thickened loops of jejnum within left side of abdomen w/ surrounding fat stranding and mild mesenteric edema consistent with enteritis. 2 punctate foci of extra luminal gas adjacent to thickened loop of jejunum. Could represent sm focus of microperforation or mesenteric venous gas in setting of ischemic bowel. colonic and jejunal diverticulosis. no evidence for acute diverticulitis or bowel obstruction. -repeat CTAP 06/17: inflammatory process involving loops of jejunum in left lateral abdomen. Numerous diverticula of small bowel, could represent nonspecific enteritis vs jejunal diverticulitis. degree of inflammation significantly increased from 06/15. Loculated extraluminal gas & fluid seen adjacent to inflamed jejunal loops. increased from previous and is highly suggestive of contained perforation. phelgmonous change w/ no organized/renal drainable fluid collection. - CTAP 06/22: perforated jejunal diverticulitis. increase in ascites. mild small bowel dilation - illeus vs SBO -surgery following - NPO with PPN - continue zosyn - plan for OR 06/23 Pain control: IV tylenol and Dilaudid Nausea: zofran and phenergran AM BMP, Mag and Phos (2) Hypertension: Plan: Since patient presented to the ED he has remained mildly hypertensive. suspect secondary to pain and infection, will continue to monitor as condition improves Not on any daily medications outpatient amlodipine 5mg given 825 AM - will reassess daily with worsening pain/nausea. Plan Chronic conditions: Dyslipidemia: hold simvastatin while NPO, resume as able Diet: NPO, PPN DVT ppx: SCDs Dispo: continued inpatient stay, surgery tomorrow updated by phone Admission and Anticipated Discharge Date Admission Date: June 15, 2024 Subjective Patient seen this morning, continues to have pain that is controlled with dilaudid but not improving. emesis last night small bowel movement last night sips of water do not make pain worse plan for OR tomorrow Review of Systems Review of Systems: All systems reviewed & are unremarkable except as noted in Subjective Physical Exam Physical Exam: General: NAD, VS as above, ill appearing, sitting up in bed Resp: normal respiratory effort, lungs clear to auscultation CV: RRR, no murmur, Abd: normal bowel sounds, Tender, worse in left lower quadrant. Extremities: Moves all extremities, no edema Neuro: A&O x3, Results & Data Results & Data Vital Signs (Past 12 Hours) Vital Signs Temp Pulse Resp BP Pulse Ox O2 Del Method 06/22/24 07:35 36.7 C 69 18 148/83 H 94 Room Air Laboratory Results BMP mag phos reviewed PG Care Time/CCT Total # of Minutes Spent Total Time Spent with Patient: Total time spent is greater than 50% in coordination of care (as documented) at patient's floor/unit and/or counseling patient: Coding Level of Care Code 13240 SUB INP/OBS CARE 3/50MIN Diagnoses Gastroenteritis K52.9 Primary hypertension I10 Hypertension type: primary hypertension (2) Hypertension Hypertension type: primary hypertension Qualified Code(s): I10 - Essential (primary) hypertension
[2024-06-22] MEDS: PERIPHERAL TPN IV SCH (16:22)
[2024-06-22] MEDS: [UNRECOGNIZED DRUG - OTHER] IV SCH (16:22)
[2024-06-22] MEDS: CLINOLIPID 20% IV FAT EMULSION 250 ML IV SCH (16:23)
[2024-06-23 09:19] LABS: Calcium 8.8 mg/dl (8.6-10.3); Creatinine Clr Calc Pharmacy 113.2 ml/min; Est GFR (African American) 118.9 ml/min; Est GFR (Non-African American) 102.5 ml/min; Phosphorus 3.2 mg/dl (2.5-4.9); Potassium 4.3 mmol/L (3.5-5.1)
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
--- NOTE | 2024-06-23 12:20 | History & Physical Bridge Note ---
Date of Service June 23, 2024 History & Physical Bridge Note I have examined the patient, reviewed the History & Physical and in the interval since the performance of the History & Physical I have noted the following changes of clinical significance: pt failing conservative management. still with pain. imaging with minimal improvement/less than expected. discussed options/risks ( bleeding/infection/blood clots/injury to an organ/anastomotic leaks/strictures etc....). questions answered. will proceed with exploratory laparotomy, possible small bowel resection, surgery as needed. pt agrees with plan.
--- NOTE | 2024-06-23 12:35 | Hospitalist Progress Note ---
Date of Service June 23, 2024 Assessment & Plan (1) Diverticulitis of jejunum: Plan: -Patient with abdominal pain, fever, chills, and nausea that started 06/14. -stool panel: negative -CTAP 06/15: multiple thickened loops of jejnum within left side of abdomen w/ surrounding fat stranding and mild mesenteric edema consistent with enteritis. 2 punctate foci of extra luminal gas adjacent to thickened loop of jejunum. Could represent sm focus of microperforation or mesenteric venous gas in setting of ischemic bowel. colonic and jejunal diverticulosis. no evidence for acute diverticulitis or bowel obstruction. -repeat CTAP 06/17: inflammatory process involving loops of jejunum in left lateral abdomen. Numerous diverticula of small bowel, could represent nonspecific enteritis vs jejunal diverticulitis. degree of inflammation significantly increased from 06/15. Loculated extraluminal gas & fluid seen adjacent to inflamed jejunal loops. increased from previous and is highly suggestive of contained perforation. phelgmonous change w/ no organized/renal drainable fluid collection. - CTAP 06/22: perforated jejunal diverticulitis. increase in ascites. mild small bowel dilation - illeus vs SBO -surgery following - NPO with PPN - continue zosyn - plan for OR 06/23 Pain control: IV tylenol and Dilaudid Nausea: zofran and phenergran AM CBC BMP (2) Hypertension: Plan: Since patient presented to the ED he has remained mildly hypertensive. suspect secondary to pain and infection, will continue to monitor as condition improves Not on any daily medications outpatient amlodipine 5mg given 825 AM - will reassess daily with worsening pain/nausea. BP only moderately elevated - will defer additional medications today with planned OR procedure and monitor BP post operatively Plan Chronic conditions: Dyslipidemia: hold simvastatin while NPO, resume as able Diet: NPO, PPN DVT ppx: SCDs Dispo: continued inpatient stay, OR today updated by phone 06/22 Admission and Anticipated Discharge Date Admission Date: June 15, 2024 Supervising Physician Co-Signing Physician Notes Attending Attestation - Chart reviewed, care plan d/w ROCÍO Eastman. I agree w/ the bolton components of her documentation. Migel Martin MD Subjective Patient seen lying in bed prior to surgery stating pain is still the same, but controlled. Wanting to have surgery and have things fixed no BM today Review of Systems Review of Systems: All systems reviewed & are unremarkable except as noted in Subjective Physical Exam Physical Exam: General: NAD, VS as above, ill appearing, sitting up in bed Resp: normal respiratory effort, lungs clear to auscultation CV: RRR, no murmur, Abd: normal bowel sounds, slightly more distented than prior days but still soft, patient is painful with any palpation Neuro: A&O x3, Results & Data Results & Data Vital Signs (Past 12 Hours) Vital Signs Temp Pulse Resp BP Pulse Ox O2 Del Method 06/23/24 07:55 36.8 C 62 20 157/78 H 96 Room Air Laboratory Results BMP mag phos reviewed PG Care Time/CCT Total # of Minutes Spent Total Time Spent with Patient: Total time spent is greater than 50% in coordination of care (as documented) at patient's floor/unit and/or counseling patient: Coding Level of Care Code 14482 SUB INP/OBS CARE 2/35MIN Diagnoses Diverticulitis of jejunum K57.12 Primary hypertension I10 Hypertension type: primary hypertension (2) Hypertension Hypertension type: primary hypertension Qualified Code(s): I10 - Essential (primary) hypertension
[2024-06-23] MEDS: LACTATED RINGER'S 1,000 ML IV SCH (12:54)
[2024-06-23] MEDS ORDERED: ATROPINE SULFATE 0.1 MG/ML 10ML SYR IV PRN (13:04)
[2024-06-23] MEDS ORDERED: DROPERIDOL 5 MG/2 ML VIAL IV PRN (13:04)
[2024-06-23] MEDS ORDERED: ROCURONIUM BROMIDE 10 MG/ML 5 ML VIAL IV ONE ×2 (13:08→15:05)
[2024-06-23] MEDS ORDERED: MIDAZOLAM HCL 1 MG/ML 2ML VIAL ONE (13:08)
[2024-06-23] MEDS ORDERED: fentaNYL citrate PF 100 MCG/2 ML VIAL ONE ×3 (13:08→14:51)
[2024-06-23] MEDS ORDERED: PROPOFOL IV EMULSION 10 MG/ML 20 ML VIAL IV ONE (13:08)
[2024-06-23] MEDS ORDERED: DEXAMETHASONE SOD INJ 4 MG/ML VIAL ONE (13:09)
[2024-06-23] MEDS ORDERED: ONDANSETRON INJ 2 MG/ML 2 ML VIAL ONE (13:09)
[2024-06-23] MEDS ORDERED: LIDOCAINE 2% 2 ML VIAL/AMP(20MG/ML) INFIL ONE (13:09)
[2024-06-23] MEDS ORDERED: KETAMINE HCL 10MG/ML SYR ONE (13:10)
[2024-06-23] MEDS ORDERED: SUCCINYLCHOLINE CHLORIDE 20 MG/ML 10 ML VIAL IV ONE (13:36)
[2024-06-23] MEDS: ceFAZolin 2000MG 2,000 MG/15 ML SYR IV ONE (14:30)
[2024-06-23] MEDS ORDERED: ceFAZolin 330 MG/ML 1 GM VIAL ONE (14:46)
[2024-06-23] MEDS ORDERED: SUGAMMADEX SODIUM 200 MG/2 ML VIAL IV ONE (14:52)
[2024-06-23] MEDS ORDERED: LABETALOL HCL IV 5 MG/ML 20ML IV ONE (14:56)
[2024-06-23] MEDS: ONDANSETRON INJ 2 MG/ML 2 ML VIAL IV PRN (16:00)
[2024-06-23] MEDS: HYDROmorphone INJ 1 MG/ML SYRINGE IV PRN (16:01)
[2024-06-23] MEDS: KETOROLAC 30 MG/ML VIAL IV PRN (16:01)
--- NOTE | 2024-06-23 16:09 | Operative Report ---
PG Post Operative Report Pre & Post Diagnosis Operation Date: 06/23/24 13:15 Pre-Op Diagnosis: Small bowel diverticulitis Post-Op Diagnosis: Small bowel diverticulitis; bezoar I identified the patient and participated in the time-out.: Yes Procedure Operation Date: 06/23/24 13:15 Actual Procedures p Exploratory laparotomy, partial small bowel resection, partial omentectomy (Not Applicable) - Francisco Alberto DO Surgeon Francisco Alberto DO Placement Officer tamar saldaña Estimated Blood Loss 10 Findings Consistent with Post-Op Diagnosis Specimens 1. portion of small bowel 2. stone bezoar Description of Procedure After informed consent was obtained the patient was taken to the operating room and placed in supine position. After successful intubation a Cedeño catheter was placed sterilely. The abdomen was shaved and sterilely prepped and draped in usual fashion. I began by making a midline incision from above the umbilicus down to the lower one third of the abdomen. This was carried down through the soft tissue using cautery. Anterior fascia was opened using cautery. Peritoneum was elevated using hemostats and incised under direct vision using a Metzenbaum scissor. A finger sweep was performed. The incision was then opened to both poles using cautery. Once in the abdomen we evaluated the bowel. The upper half of the abdomen contained dilated small bowel and the lower half contained decompressed small bowel. We began by running the small bowel from the ligament of Treitz down to the cecum. There was no evidence of any ischemic or infarcted bowel however there was an area in the mid to distal jejunum which was partially obstructed and extremely inflamed. This included the serosa as well as the mesentery. As I examined this we were able to identify a small contained perforation. Interestingly just proximal to this was a very large hard object within the lumen of the bowel consistent with a stone. It was too large to pass through the area of inflammation. The distal stomach was adhesed to the anterior abdominal wall presumably from prior a procedure. Gallbladder and liver appeared normal. There was no purulent fluid and the colon appeared normal. The small bowel itself was riddled with many large and small diverticuli. I began by transecting the small bowel proximal to the inflamed region using a KALYN brown cartridge linear stapler. I used the same stapler to divide the small bowel distal to the area of inflammation. We then took down the mesentery using a LigaSure device. The specimen was passed off and sent to pathology. Next we performed a [id number] small bowel anastomosis. When I made the enterotomy in the proximal small bowel I milked the foreign body out of the lumen. It was a very large what appeared to be a gallstone. We then performed a [id number] small bowel anastomosis using 2 firings of a KALYN brown cartridge linear stapler. The common enterotomy was then closed using a TA stapling device. 3-[address] was [address] to [address] a crotch stitch and 3-0 silk was also used to oversew all of the staple lines in Lembert fashion. The mesenteric defect was closed using 2-0 Vicryl in a running fashion. The anastomosis was widely patent. There was no evidence of any ischemia. We ran the bowel final time and showed no other abnormalities. The omentum did have a little bit of ischemia and we therefore resected about one fourth of it using the LigaSure device. The abdomen was thoroughly irrigated all 4 quadrants. The fascia was closed using 0 PDS in running fashion. Soft tissue was irrigated and skin was closed over a Raleigh drain using skin kayce. A silver dressing was applied. The patient was awakened extubated and transferred recovery in stable condition. My nurse practitioner was present through the entire case and was instrumental in assisting with exposure assisting with the anastomosis wound closure and dressing placement. I attest to the content of the Intraoperative Record and any orders documented therein. Any exceptions are noted below.
[2024-06-23] MEDS: LABETALOL HCL IV 5 MG/ML 20ML IV PRN (16:17)
[2024-06-23] MEDS: HYDROmorphone INJ 1 MG/ML SYRINGE IV STA (16:21)
[2024-06-23] MEDS: MEPERIDINE HCL 25 MG/ML CARP/VIAL IV ONE (16:46)
--- NOTE | 2024-06-23 17:26 | Anesthesiology Progress Note ---
Date of Service June 23, 2024 Anesthesia Post Procedure Vital Signs Vital Signs: Temp Pulse Pulse Pulse Resp BP BP 06/23/24 17:00 36.8 C 68 17 145/91 H 06/23/24 16:50 68 15 178/95 H 06/23/24 16:40 78 15 147/106 H 06/23/24 16:30 65 15 157/99 H 06/23/24 16:20 73 15 162/89 H 06/23/24 16:17 81 185/112 H 06/23/24 16:10 79 17 185/112 H 06/23/24 16:00 84 17 164/108 H 06/23/24 15:54 36.9 C 82 17 151/107 H 06/23/24 12:38 36.3 C L 83 20 162/96 H 06/23/24 07:55 36.8 C 62 20 157/78 H 06/22/24 20:47 36.7 C 69 18 BP Pulse Ox O2 Del Method O2 Flow Rate 06/23/24 17:00 98 Nasal Cannula 4 06/23/24 16:50 98 Nasal Cannula 4 06/23/24 16:40 98 Nasal Cannula 4 06/23/24 16:30 99 Nasal Cannula 4 06/23/24 16:20 99 Oxymask 5 06/23/24 16:17 06/23/24 16:10 100 Oxymask 5 06/23/24 16:00 100 Oxymask 5 06/23/24 15:54 100 Oxymask 5 06/23/24 12:38 96 Room Air 06/23/24 07:55 96 Room Air 06/22/24 20:47 178/90 H 94 Room Air Pain Intensity Bilateral Lower Abdomen: Pain Intensity: 10 Left Lower Abdomen: Pain Intensity: 8 Transfer of Care Handoff Completed per policy Notes Mental Status: alert / awake / arousable Patient Amnestic to Procedure: Yes Nausea / Vomiting: adequately controlled Pain: adequately controlled Airway Patency, RR, SpO2: stable & adequate BP & HR: stable & adequate Hydration State: stable & adequate Anesthetic Complications: no major complications apparent
[2024-06-23] MEDS: CLINOLIPID 20% IV FAT EMULSION 250 ML IV SCH (17:44)
[2024-06-23] MEDS: [UNRECOGNIZED DRUG - OTHER] IV SCH (17:45)
[2024-06-23] MEDS: PERIPHERAL TPN IV SCH (17:45)
[2024-06-23] MEDS: HYDROmorphone INJ 1 MG/ML SYRINGE ONE (21:04)
[2024-06-23] MEDS: MEPERIDINE HCL 25 MG/ML CARP/VIAL ONE (21:05)
[2024-06-24] MEDS: HYDROmorphone INJ 1 MG/ML SYRINGE IV PRN (01:41)
[2024-06-24 07:32] LABS: Basophils # (auto) 0.04 K/uL (0.00-0.20); Basophils % (auto) 0.3 %; Eosinophils # (auto) 0.16 K/uL (0.00-0.50); Eosinophils % (auto) 1.2 %; Hematocrit (blood only) 43.6 % (42.0-52.0); Hemoglobin 14.4 g/dl (14.0-18.0); Immature Granulocytes # (auto) 0.11 K/uL (0.01-0.20); Immature Granulocytes % (auto) 0.8 %; Lymphocytes # (auto) 1.62 K/uL (1.20-3.40); Lymphocytes % (auto) 11.9 %; Mean Corpuscular Hemoglobin 29.5 pg (25.0-34.0); Mean Corpuscular Volume 89.3 fL (80.0-100.0); Monocytes # (auto) 1.01 K/uL (0.11-0.59); Monocytes % (auto) 7.4 %; Neutrophils # (auto) 10.64 K/uL (1.40-6.50); Neutrophils % (auto) 78.4 %; Platelet Count 492 K/uL (130-400); RDW Coefficient of Variation 13.1 % (11.5-14.5); RDW Standard Deviation 42.5 fL (36.4-46.3); Red Blood Count 4.88 M/uL (4.70-6.10); White Blood Count 13.58 K/ul (4.8-10.8)
[2024-06-24 08:08] LABS: BUN Creatinine Ratio 23.7 (10-20); Calcium 8.8 mg/dl (8.6-10.3); Creatinine Clr Calc Pharmacy 111.8 ml/min; Est GFR (African American) 118.2 ml/min; Phosphorus 3.2 mg/dl (2.5-4.9); Potassium 4.8 mmol/L (3.5-5.1)
[2024-06-24] MEDS: HYDROmorphone INJ 0.5 MG/0.5 ML SYR IV STA (08:49)
--- NOTE | 2024-06-24 12:27 | Surgery Progress Note ---
Date of Service June 24, 2024 Assessment & Plan (1) Diverticulitis of jejunum: Plan: Postoperative day #1. Doing as expected. Will keep his NG tube as well as Cedeño for 1 more day and hopefully can remove both tomorrow. Encouraged him being out of bed as tolerated. Admission and Anticipated Discharge Date Admission Date: June 15, 2024 Subjective Patient is postoperative day #1 from exploratory laparotomy with partial small bowel resection. He of course is having considerable discomfort from his incision. Physical Exam Physical Exam: Alert no acute distress. Having expected incisional tenderness. NG tube with small amount of bilious output Results & Data Vital Signs (Past 12 Hours) Vital Signs Temp Pulse Pulse Resp BP BP Pulse Ox 06/24/24 08:29 36.3 C L 80 18 150/77 H 94 06/24/24 07:28 37.0 C 89 18 128/82 94 06/24/24 04:15 36.6 C 79 16 150/82 H 93 06/24/24 02:27 163/96 H 06/24/24 01:48 36.8 C 76 18 173/103 H 95 O2 Del Method 06/24/24 08:29 Room Air 06/24/24 07:28 Room Air 06/24/24 04:15 Room Air 06/24/24 02:27 06/24/24 01:48 Room Air PG Care Time/CCT Total # of Minutes Spent Total Time Spent with Patient: Total time spent is greater than 50% in coordination of care (as documented) at patient's floor/unit and/or counseling patient: Coding Level of Care Code 15153 Post Operative Follow-Up Diagnoses Diverticulitis of jejunum K57.12
--- NOTE | 2024-06-24 13:49 | Pharmacy Report ---
Pharmacy PN Follow-up Note - Date of Service June 24, 2024 - Subjective Patient is currently on day #[] of [PPN][TPN] for [Indication]. - Objective Height & Weight (Last Documented) Height 5 ft 10 in Weight 72.8 kg Diet Order(s) 06/23/24 00:01 NPO Intake & Ouput (24hrs) 06/23/24 06/24/24 06/25/24 06:59 06:59 06:59 Intake Total 2864.06 / 2864.06 2226.542 / 2226.542 100 / 100 Output Total 1000 / 1000 500 / 500 Balance 2864.06 / 2864.06 1226.542 / 1226.542 -400 / -400 Selected Laboratory Results 06/24/24 06:47 Sodium 134 L Potassium 4.8 Chloride 97 L Carbon Dioxide 32 Anion Gap 5 BUN 18 Creatinine 0.76 Est GFR ( Amer) 118.2 Est GFR (Non-Af Amer) 102.0 BUN/Creatinine Ratio 23.7 H Glucose 126 H Calcium 8.8 Phosphorus 3.2 Magnesium 2.0 - Assessment & Plan Assessment: * Continuing on PPN, POD #1 exploratory laparotomy, partial small bowel resection, and partial omenectomy * Discussed max recommended administration of PPN (7 days) with DEMARIO Crawford. Plan to advance diet to clear liquids tomorrow. * Minor adjustments to PPN electrolytes today * Sodium trending down and slightly low, max sodium content added to PPN * Increase chloride percentage in PPN due to chloride downtrending and slightly low * Decrease Potassium in PPN due to uptrending K levels Plan: * For Day #6 of PPN administration, the following will be ordered: * Macronutrients: * Amino Acids: 85 grams/day * Dextrose: 100 grams/day * Lipids: 50 grams/day * Micronutrients: * Sodium chloride: 140 mEq/day * Sodium acetate: 40 mEq/day * Sodium phosphate: 12 mMol/day * Potassium chloride: 20 mEq/day * Magnesium sulfate: 4.06 mEq/day * Calcium gluconate: 4.65 mEq/day * Multivitamins: 10 mL/day * Trace elements: 1 mL/day * Thiamine: 100 mg/day * Folic Acid: 1 mg/day * Total volume of 2113 mL will be infused over 24 hours and will provide 1180 kcal/day * Patient is on PPN which has a maximum mOsm/L of 900. Final osmolarity of current solution is 846.5 mOsm/L. * Labs will be ordered per PN protocol. * Pharmacy will follow and adjust PN orders on a daily basis. Thank you!
--- NOTE | 2024-06-24 14:44 | Hospitalist Progress Note ---
Date of Service June 24, 2024 Assessment & Plan (1) Diverticulitis of jejunum: Plan: -Patient with abdominal pain, fever, chills, and nausea that started 06/14. -stool panel: negative -CTAP 06/15: multiple thickened loops of jejnum within left side of abdomen w/ surrounding fat stranding and mild mesenteric edema consistent with enteritis. 2 punctate foci of extra luminal gas adjacent to thickened loop of jejunum. Could represent sm focus of microperforation or mesenteric venous gas in setting of ischemic bowel. colonic and jejunal diverticulosis. no evidence for acute diverticulitis or bowel obstruction. -repeat CTAP 06/17: inflammatory process involving loops of jejunum in left lateral abdomen. Numerous diverticula of small bowel, could represent nonspecific enteritis vs jejunal diverticulitis. degree of inflammation significantly increased from 06/15. Loculated extraluminal gas & fluid seen adjacent to inflamed jejunal loops. increased from previous and is highly suggestive of contained perforation. phelgmonous change w/ no organized/renal drainable fluid collection. - CTAP 06/22: perforated jejunal diverticulitis. increase in ascites. mild small bowel dilation - illeus vs SBO -surgery following - S/p Exploratory lap, partial small bowel resection,partial omentectomy with Dr. Alberto 06/23 - NPO with PPN - continue zosyn - keep NG tube and coleman Pain control: IV tylenol and Dilaudid Nausea: zofran and phenergran Elevated platelets likely reactive AM CBC BMP (2) Hypertension: Plan: Since patient presented to the ED he has remained mildly hypertensive. suspect secondary to pain and infection, will continue to monitor as condition improves Not on any daily medications outpatient BPs slighlty improved post operatively without medication Plan Chronic conditions: Dyslipidemia: hold simvastatin while NPO, resume as able Diet: NPO, PPN DVT ppx: SCDs Dispo: continued inpatient stay updated by phone 06/22 & bedside 06/23 Admission and Anticipated Discharge Date Admission Date: June 15, 2024 Supervising Physician Co-Signing Physician Notes Attending Attestation - Chart reviewed, care plan d/w ROCÍO Eastman. I agree w/ the bolton components of her documentation. Migel Martin MD Subjective Patient seen sitting up in bed, pain is currently worse than prior to surgery. + flatulus since surgery no BM NG tube in place present at bedside Review of Systems Review of Systems: All systems reviewed & are unremarkable except as noted in Subjective Physical Exam Physical Exam: General: NAD, VS as above, seems uncomfortable, sitting up in bed Resp: normal respiratory effort, lungs clear to auscultation CV: RRR, no murmur, Abd: normal bowel sounds, abdominal dressing with area of shadowing but not extending beyond outline Neuro: A&O x3, Results & Data Results & Data Vital Signs (Past 12 Hours) Vital Signs Temp Pulse Pulse Resp BP BP Pulse Ox 06/24/24 12:23 36.5 C 71 18 159/92 H 94 06/24/24 08:29 36.3 C L 80 18 150/77 H 94 06/24/24 07:28 37.0 C 89 18 128/82 94 06/24/24 04:15 36.6 C 79 16 150/82 H 93 O2 Del Method 06/24/24 12:23 Room Air 06/24/24 08:29 Room Air 06/24/24 07:28 Room Air 06/24/24 04:15 Room Air Laboratory Results CBC and chemistry reviewed PG Care Time/CCT Total # of Minutes Spent Total Time Spent with Patient: Total time spent is greater than 50% in coordination of care (as documented) at patient's floor/unit and/or counseling patient: Coding Level of Care Code 62244 SUB INP/OBS CARE 2MIN Diagnoses Diverticulitis of jejunum K57.12 Primary hypertension I10 Hypertension type: primary hypertension (2) Hypertension Hypertension type: primary hypertension Qualified Code(s): I10 - Essential (primary) hypertension
[2024-06-24] MEDS: [UNRECOGNIZED DRUG - OTHER] IV SCH (15:32)
[2024-06-24] MEDS: PERIPHERAL TPN IV SCH (15:32)
[2024-06-24] MEDS: CLINOLIPID 20% IV FAT EMULSION 250 ML IV SCH (15:33)
[2024-06-24] MEDS: ACETAMINOPHEN 1,000 MG/100 ML VIAL IV PRN (19:31)
[2024-06-25 07:11] LABS: Basophils % (auto) 0.6 %; Eosinophils % (auto) 5.1 %; Hematocrit (blood only) 39.3 % (42.0-52.0); Hemoglobin 13.5 g/dl (14.0-18.0); Immature Granulocytes # (auto) 0.14 K/uL (0.01-0.20); Immature Granulocytes % (auto) 0.9 %; Lymphocytes # (auto) 1.73 K/uL (1.20-3.40); Lymphocytes % (auto) 11.1 %; Mean Corpuscular Hemoglobin 29.6 pg (25.0-34.0); Mean Corpuscular Hgb Conc 34.4 g/dL (32.0-36.0); Mean Corpuscular Volume 86.2 fL (80.0-100.0); Monocytes # (auto) 1.09 K/uL (0.11-0.59); Neutrophils # (auto) 11.68 K/uL (1.40-6.50); Neutrophils % (auto) 75.3 %; Platelet Count 514 K/uL (130-400); RDW Coefficient of Variation 12.8 % (11.5-14.5); RDW Standard Deviation 40.1 fL (36.4-46.3); Red Blood Count 4.56 M/uL (4.70-6.10); White Blood Count 15.54 K/ul (4.8-10.8)
[2024-06-25 07:46] LABS: BUN Creatinine Ratio 23.9 (10-20); Calcium 8.9 mg/dl (8.6-10.3); Creatinine Clr Calc Pharmacy 119.6 ml/min; Est GFR (African American) 121.6 ml/min; Est GFR (Non-African American) 104.9 ml/min; Magnesium 2.1 mg/dl (1.7-2.4); Phosphorus 2.9 mg/dl (2.5-4.9); Potassium 4.5 mmol/L (3.5-5.1)
[2024-06-25 08:39] LABS: Bilirubin,Total 0.8 mg/dl (0.2-1.0)
--- NOTE | 2024-06-25 08:51 | Surgery Progress Note ---
Date of Service June 25, 2024 Assessment & Plan (1) Diverticulitis of jejunum: Plan: POD 2 doing ok. I expect it take some time for return of bowel fx secondary to how the small bowel appeared during surgery will d/c coleman. may have some sips/ice for flavor/comfort. continue IV nutrition OOB as tolerates Admission and Anticipated Discharge Date Admission Date: June 15, 2024 Subjective pt seen. doing ok. self d/c'd NGT . no worsening nausea since. +flatus. no bm. continues to have significant surgical pain. reasonably controlled with pain meds. he was OOB to chair already this AM. Physical Exam Physical Exam: alert. reasonably comfortable. incision looks great. dressing changed. Results & Data Vital Signs (Past 12 Hours) Vital Signs Temp Pulse Resp BP Pulse Ox O2 Del Method 06/25/24 07:25 37.1 C 86 16 156/87 H 94 Room Air 06/24/24 21:43 36.7 C 82 18 165/87 H 94 Room Air PG Care Time/CCT Total # of Minutes Spent Total Time Spent with Patient: Total time spent is greater than 50% in coordination of care (as documented) at patient's floor/unit and/or counseling patient: Coding Level of Care Code 69127 Post Operative Follow-Up Diagnoses Diverticulitis of jejunum K57.12
--- NOTE | 2024-06-25 14:17 | Hospitalist Progress Note ---
Date of Service June 25, 2024 Assessment & Plan (1) Diverticulitis of jejunum: Plan: -Patient with abdominal pain, fever, chills, and nausea that started 06/14. -stool panel: negative -CTAP 06/15: multiple thickened loops of jejnum within left side of abdomen w/ surrounding fat stranding and mild mesenteric edema consistent with enteritis. 2 punctate foci of extra luminal gas adjacent to thickened loop of jejunum. Could represent sm focus of microperforation or mesenteric venous gas in setting of ischemic bowel. colonic and jejunal diverticulosis. no evidence for acute diverticulitis or bowel obstruction. -repeat CTAP 06/17: inflammatory process involving loops of jejunum in left lateral abdomen. Numerous diverticula of small bowel, could represent nonspecific enteritis vs jejunal diverticulitis. degree of inflammation significantly increased from 06/15. Loculated extraluminal gas & fluid seen adjacent to inflamed jejunal loops. increased from previous and is highly suggestive of contained perforation. phelgmonous change w/ no organized/renal drainable fluid collection. - CTAP 06/22: perforated jejunal diverticulitis. increase in ascites. mild small bowel dilation - illeus vs SBO -surgery following - S/p Exploratory lap, partial small bowel resection,partial omentectomy with Dr. Alberto 06/23 - allowed for sips/chips and small amounts of flavored ice, continue PPN - continue zosyn - prefers pain management to be kept IV Pain control: IV tylenol and Dilaudid Nausea: zofran and phenergran Elevated platelets and WBC likely reactive - trend with a.m. labs patient asymptomatic from low sodium AM CBC BMP (2) Hypertension: Plan: Since patient presented to the ED he has remained mildly hypertensive. suspect secondary to pain and infection, will continue to monitor as condition improves Not on any daily medications outpatient BPs slighlty improved post operatively without medication and avoiding p.o. medication at this time, will continue to monitor and emphasized pain control Plan Chronic conditions: Dyslipidemia: hold simvastatin while NPO, resume as able Diet: NPO, PPN DVT ppx: SCDs, consider chemical ppx if mobility does not improve tomorrow and expect long stay Dispo: continued inpatient stay updated by phone 06/22 & bedside 06/23, 06/25 Admission and Anticipated Discharge Date Admission Date: June 15, 2024 Supervising Physician Co-Signing Physician Notes Attending Attestation - Chart reviewed, care plan d/w ROCÍO Eastman. I agree w/ the bolton components of her documentation. Migel Martin MD Subjective Patient seen after lunch. Has been resting for most of the day as he still having considerable pain. Has been passing gas. Thankfully the pain has not gotten worse with the sips of water he is taken Pain is mainly incisional denies fevers chills or night sweats Review of Systems Review of Systems: All systems reviewed & are unremarkable except as noted in Subjective Physical Exam Physical Exam: General: NAD, VS as above, seems uncomfortable, Lying in bed Resp: normal respiratory effort, lungs clear to auscultation CV: RRR, no murmur, Abd: Hypoactive bowel sounds extremities: Right hand with some swelling after infiltrated IV. Neuro: A&O x3, Results & Data Results & Data Vital Signs (Past 12 Hours) Vital Signs Temp Pulse Resp BP Pulse Ox O2 Del Method 06/25/24 07:25 37.1 C 86 16 156/87 H 94 Room Air Laboratory Results CBC and chemistry reviewed Medications Administered PG Care Time/CCT Total # of Minutes Spent Total Time Spent with Patient: Total time spent is greater than 50% in coordination of care (as documented) at patient's floor/unit and/or counseling patient: Coding Level of Care Code 75758 SUB INP/OBS CARE 2/35MIN Diagnoses Diverticulitis of jejunum K57.12 Primary hypertension I10 Hypertension type: primary hypertension (2) Hypertension Hypertension type: primary hypertension Qualified Code(s): I10 - Essential (primary) hypertension
[2024-06-25] MEDS: PERIPHERAL TPN IV SCH (15:39)
[2024-06-25] MEDS: [UNRECOGNIZED DRUG - OTHER] IV SCH (15:39)
[2024-06-25] MEDS: CLINOLIPID 20% IV FAT EMULSION 250 ML IV SCH (15:40)
[2024-06-25] MEDS: PIPERACILLIN/TAZOBACTAM 4.5 GM/100 ML BAG IV SCH (17:09)
[2024-06-25] MEDS ORDERED: METOCLOPRAMIDE HCL INJ 5 MG/ML 2 ML VIAL IV PRN (18:01)
--- NOTE | 2024-06-25 20:01 | Communication Note ---
Date of Service: June 25, 2024 I was called by nursing staff concerning this patient. They note that the patient was complaining of abdominal pain and is requesting a heating pad. [facility] staff expressed some concerns due to the pain the patient was reporting and asked if I would present to the bedside to evaluate the patient. I did evaluate the patient at the bedside. When I walked in the room the patient was nontoxic-appearing resting comfortably in bed. He was not writhing around in uncontrollable pain. The patient notes that he self discontinued his NG tube over the past 24 hours and he has not had any nausea or vomiting since then. He notes he is passing flatus but is not had a bowel movement. He denies any fevers, shakes, or chills. When asked where he is having pain he notes he is having pain directly over his surgical incision. He denies any shortness of breath. He does not voice any other complaints. On exam the patient's lungs are clear to auscultation. His abdomen is slightly distended but he does have positive bowel sounds. The patient's surgical incision is clean, dry, and intact with kayce. There is only a slight amount of erythema along the surgical incision. He does have the expected tenderness to palpation over his surgical incision. I verified with the patient's nurse that the patient has not had any episodes of hypotension or tachycardia or febrile episodes. I reviewed the patient's record and he did have a contained perforation and small bowel diverticulitis. At this point in time I do not have any additional concerns at this time and think that the patient's pain is likely related to intra-abdominal inflammation from his preoperative process as well as postoperative pain from his surgery. I provided the patient with reassurance. Prior to leaving unit I did discuss with nursing staff to notify me if there is any clinical change.
--- NOTE | 2024-06-26 09:05 | Surgery Progress Note ---
Date of Service June 26, 2024 Assessment & Plan (1) Diverticulitis of jejunum: Plan: POD 3 doing as expected increasing flatus/no nausea. will try clear liquids continue ambulation. awaiting full return of bowel fx to advance diet [facility] surgeons covering for weekend. Admission and Anticipated Discharge Date Admission Date: June 15, 2024 Subjective pt seen. OOB /ambulating to bathroom on his own. does not appear to be in pain. denies nausea. +increase flatus. Physical Exam Physical Exam: alert. nad. does not appear to be in pain. dressing on incision C/D/I Results & Data Vital Signs (Past 12 Hours) Vital Signs Temp Pulse Resp BP Pulse Ox O2 Del Method 06/26/24 08:26 37.4 C 71 18 168/84 H 95 Room Air PG Care Time/CCT Total # of Minutes Spent Total Time Spent with Patient: Total time spent is greater than 50% in coordination of care (as documented) at patient's floor/unit and/or counseling patient: Coding Level of Care Code 08981 Post Operative Follow-Up Diagnoses Diverticulitis of jejunum K57.12
[2024-06-26 09:15] LABS: Basophils # (auto) 0.09 K/uL (0.00-0.20); Basophils % (auto) 0.7 %; Eosinophils # (auto) 1.04 K/uL (0.00-0.50); Eosinophils % (auto) 7.7 %; Hematocrit (blood only) 38.5 % (42.0-52.0); Hemoglobin 12.9 g/dl (14.0-18.0); Immature Granulocytes # (auto) 0.17 K/uL (0.01-0.20); Immature Granulocytes % (auto) 1.3 %; Lymphocytes # (auto) 1.53 K/uL (1.20-3.40); Lymphocytes % (auto) 11.3 %; Mean Corpuscular Hemoglobin 29.5 pg (25.0-34.0); Mean Corpuscular Hgb Conc 33.5 g/dL (32.0-36.0); Mean Corpuscular Volume 88.1 fL (80.0-100.0); Mean Platelet Volume 8.9 fL (9.4-12.4); Monocytes % (auto) 7.4 %; Neutrophils # (auto) 9.75 K/uL (1.40-6.50); Neutrophils % (auto) 71.6 %; Platelet Count 488 K/uL (130-400); RDW Standard Deviation 41.6 fL (36.4-46.3); Red Blood Count 4.37 M/uL (4.70-6.10); White Blood Count 13.58 K/ul (4.8-10.8)
[2024-06-26 09:28] LABS: BUN Creatinine Ratio 26.1 (10-20); Calcium 8.6 mg/dl (8.6-10.3); Est GFR (Non-African American) 106.1 ml/min; Phosphorus 3.4 mg/dl (2.5-4.9); Potassium 4.2 mmol/L (3.5-5.1)
--- NOTE | 2024-06-26 12:24 | Hospitalist Progress Note ---
Date of Service June 26, 2024 Assessment & Plan (1) Diverticulitis of jejunum: Plan: -Patient with abdominal pain, fever, chills, and nausea that started 06/14. -stool panel: negative -CTAP 06/15: multiple thickened loops of jejnum within left side of abdomen w/ surrounding fat stranding and mild mesenteric edema consistent with enteritis. 2 punctate foci of extra luminal gas adjacent to thickened loop of jejunum. Could represent sm focus of microperforation or mesenteric venous gas in setting of ischemic bowel. colonic and jejunal diverticulosis. no evidence for acute diverticulitis or bowel obstruction. -repeat CTAP 06/17: inflammatory process involving loops of jejunum in left lateral abdomen. Numerous diverticula of small bowel, could represent nonspecific enteritis vs jejunal diverticulitis. degree of inflammation significantly increased from 06/15. Loculated extraluminal gas & fluid seen adjacent to inflamed jejunal loops. increased from previous and is highly suggestive of contained perforation. phelgmonous change w/ no organized/renal drainable fluid collection. - CTAP 06/22: perforated jejunal diverticulitis. increase in ascites. mild small bowel dilation - illeus vs SBO -surgery following - S/p Exploratory lap, partial small bowel resection,partial omentectomy with Dr. Alberto 06/23 - advanced to clear liquid - continue zosyn - prefers pain management to be kept IV Pain control: IV tylenol and Dilaudid Nausea: zofran and phenergran Elevated platelets and WBC likely reactive - downtrending patient asymptomatic from low sodium (2) Hypertension: Plan: Since patient presented to the ED he has remained mildly hypertensive. suspect secondary to pain and infection, will continue to monitor as condition improves Not on any daily medications outpatient Patient has not had normal BP in over 24 hours, will start low dose ARB Plan Chronic conditions: Dyslipidemia: hold simvastatin while NPO, resume as able DVT ppx: Lovenox Dispo: continued inpatient stay updated by phone 06/22 & bedside 06/23, 06/25 Admission and Anticipated Discharge Date Admission Date: June 15, 2024 Supervising Physician Co-Signing Physician Notes Attending Attestation - Chart reviewed, care plan d/w ROCÍO Eastman. I agree w/ the bolton components of her documentation. Migel Martin MD Subjective patient better today, moving around the room tolerated clear liquids passing gas pain is controlled Review of Systems Review of Systems: All systems reviewed & are unremarkable except as noted in Subjective Physical Exam Physical Exam: General: NAD, VS as above, much more plesant and seems to be feeling much better today Resp: normal respiratory effort, lungs clear to auscultation CV: RRR, no murmur, Abd: normal bowel sounds. dressing c/d/i extremities:moves all extremities Neuro: A&O x3, Results & Data Results & Data Vital Signs (Past 12 Hours) Vital Signs Temp Pulse Resp BP Pulse Ox O2 Del Method 06/26/24 08:26 37.4 C 71 18 168/84 H 95 Room Air Laboratory Results cbc, chemistry, mag and phos reviewed PG Care Time/CCT Total # of Minutes Spent Total Time Spent with Patient: Total time spent is greater than 50% in coordination of care (as documented) at patient's floor/unit and/or counseling patient: Coding Level of Care Code 09283 SUB INP/OBS CARE 2/35MIN Diagnoses Diverticulitis of jejunum K57.12 Primary hypertension I10 Hypertension type: primary hypertension (2) Hypertension Hypertension type: primary hypertension Qualified Code(s): I10 - Essential (primary) hypertension
[2024-06-26] MEDS: LOSARTAN POTASSIUM 25 MG TAB PO SCH (14:23)
[2024-06-26] MEDS: CLINOLIPID 20% IV FAT EMULSION 250 ML IV SCH (17:44)
[2024-06-26] MEDS: [UNRECOGNIZED DRUG - OTHER] IV SCH (17:44)
[2024-06-26] MEDS: PERIPHERAL TPN IV SCH (17:44)
[2024-06-26] MEDS: ENOXAPARIN INJ 40 MG/0.4 ML SYR SQ SCH (20:31)
[2024-06-27 07:57] LABS: BUN Creatinine Ratio 28.2 (10-20); Calcium 8.5 mg/dl (8.6-10.3); Est GFR (African American) 121.6 ml/min; Est GFR (Non-African American) 104.9 ml/min; Magnesium 2.1 mg/dl (1.7-2.4); Phosphorus 3.8 mg/dl (2.5-4.9); Potassium 4.1 mmol/L (3.5-5.1)
--- NOTE | 2024-06-27 08:57 | Surgery Progress Note ---
Date of Service June 27, 2024 Assessment & Plan (1) Diverticulitis of jejunum: Plan: bowel function returning advance to fulls ambulate good progress Admission and Anticipated Discharge Date Admission Date: June 15, 2024 Subjective no complaints good BMs yesterday taking po well Review of Systems Constitutional: no fever and no chills Respiratory: no cough and no dyspnea Cardiovascular: no chest pain Gastrointestinal: + abdominal pain; no nausea, no vomiting and no change in bowel habits Genitourinary: no dysuria Neurologic: no localized weakness Psychiatric: no behavioral changes Physical Exam Constitutional: WD/WN, vitals as above Respiratory: normal respiratory effort, lungs clear to auscultation Cardiovascular: RRR, no murmur, no edema Gastrointestinal (Abdomen): Inspection/Auscultation: abdomen normal to inspection, + abdomen distended and normal bowel sounds Percussion/Palpation: + abdomen tender and abdomen soft; no guarding and abdomen not rigid Musculoskeletal: Head/Neck/Chest: normocephalic and head atraumatic Skin: no rashes, warm and dry Results & Data Vital Signs (Past 12 Hours) Vital Signs Temp Pulse Resp BP Pulse Ox O2 Del Method 06/27/24 07:45 36.6 C 78 14 145/75 H 96 Room Air
[2024-06-27 10:12] LABS: Basophils # (auto) 0.11 K/uL (0.00-0.20); Basophils % (auto) 0.9 %; Eosinophils # (auto) 1.28 K/uL (0.00-0.50); Eosinophils % (auto) 10.1 %; Hemoglobin 12.4 g/dl (14.0-18.0); Immature Granulocytes # (auto) 0.16 K/uL (0.01-0.20); Immature Granulocytes % (auto) 1.3 %; Lymphocytes # (auto) 1.74 K/uL (1.20-3.40); Lymphocytes % (auto) 13.7 %; Mean Corpuscular Hemoglobin 29.8 pg (25.0-34.0); Mean Corpuscular Hgb Conc 33.5 g/dL (32.0-36.0); Mean Corpuscular Volume 88.9 fL (80.0-100.0); Mean Platelet Volume 9.2 fL (9.4-12.4); Monocytes # (auto) 0.89 K/uL (0.11-0.59); Neutrophils # (auto) 8.49 K/uL (1.40-6.50); Platelet Count 554 K/uL (130-400); RDW Standard Deviation 42.8 fL (36.4-46.3); Red Blood Count 4.16 M/uL (4.70-6.10); White Blood Count 12.67 K/ul (4.8-10.8)
--- NOTE | 2024-06-27 14:53 | Hospitalist Progress Note ---
Date of Service June 27, 2024 Assessment & Plan (1) Diverticulitis of jejunum: Plan: -Patient with abdominal pain, fever, chills, and nausea that started 06/14. -stool panel: negative -CTAP 06/15: multiple thickened loops of jejnum within left side of abdomen w/ surrounding fat stranding and mild mesenteric edema consistent with enteritis. 2 punctate foci of extra luminal gas adjacent to thickened loop of jejunum. Could represent sm focus of microperforation or mesenteric venous gas in setting of ischemic bowel. colonic and jejunal diverticulosis. no evidence for acute diverticulitis or bowel obstruction. -repeat CTAP 06/17: inflammatory process involving loops of jejunum in left lateral abdomen. Numerous diverticula of small bowel, could represent nonspecific enteritis vs jejunal diverticulitis. degree of inflammation significantly increased from 06/15. Loculated extraluminal gas & fluid seen adjacent to inflamed jejunal loops. increased from previous and is highly suggestive of contained perforation. phelgmonous change w/ no organized/renal drainable fluid collection. -CTAP 06/22: perforated jejunal diverticulitis. increase in ascites. mild small bowel dilation - ileus vs SBO -surgery following - S/p Exploratory lap, partial small bowel resection,partial omentectomy with Dr. Alberto 06/23 - advanced to full liq on 06/27 - continue zosyn - prefers pain management to be kept IV Pain control: IV tylenol and Dilaudid Nausea: zofran and phenergan Elevated platelets and WBC likely reactive - downtrending patient asymptomatic from low sodium (2) Hypertension: Plan: Since patient presented to the ED he has remained mildly hypertensive. suspect secondary to pain and infection, will continue to monitor as condition improves Not on any daily medications outpatient Patient has not had normal BP in over 24 hours, started on low dose losartan 25mg on 06/26 Bp w/ acceptable control Plan Chronic conditions: Dyslipidemia: simvastatin held d/t NPO status but can be resumed upon d/c DVT ppx: Lovenox Dispo: continued inpatient stay updated by phone 06/22 & bedside 06/23, 06/25 Dr. Martin updated on plan of care. Admission and Anticipated Discharge Date Admission Date: June 15, 2024 Supervising Physician Co-Signing Physician Notes Attending Attestation - Chart reviewed, care plan d/w ROCÍO Freeman. I agree w/ the bolton components of her documentation. Appreciate ongoing general surgery assistance & management. Migel Martin MD Adalid Mcconnell is a 58 yo M who was admitted for abd pain with findings of enteritis and microperforation. He failed to improve with conservative management and was taken for exploratory laparotomy on 06/23 and underwent partial small bowel resection and partial omentectomy due to findings of small bowel diverticulitis and bezoar. Today, he reports that he is doing well, pain is controlled unless he coughs. He denies n/v. He is tolerating clear liquids. He moved his bowels twice thus far today. He is voiding w/o issue. He denies chest pain or dyspnea. He is afebrile. He was seen this AM by gen surg and is cleared to advance diet to full liquids. He has no questions/concerns at this time. Review of Systems 2 Review of Systems: All systems reviewed and are unremarkable except as noted in HPI and below. Denies fever, chills, fatigue, headache, nasal congestion, sore throat, cough, chest pain, shortness of breath, palpitations, orthopnea, PND, n/v/d, constipation, dysuria, hematuria, frequency, back pain, joint pain or swelling, easy bruising or bleeding, skin lesions or rashes. Physical Exam 2 Physical Exam: GENERAL: 58 yo well-nourished WM. Pleasant, cooperative, oriented x3. NAD. LUNGS: Clear to auscultation bilaterally. No W/R/R. CARDIOVASCULAR: Regular rate and rhythm. No M/G/R. ABDOMEN: Soft, incisional tenderness. non-distended. Bowel sounds normoactive x 4 quad. EXTREMITIES: No edema. Non-tender. Peripheral pulses +2/4. SKIN: Warm, dry, intact. No rashes or lesions. Results & Data Results & Data Vital Signs (Past 12 Hours) Vital Signs Temp Pulse Resp BP Pulse Ox O2 Del Method 06/27/24 07:45 36.6 C 78 14 145/75 H 96 Room Air Laboratory Results 06/27/24 06:51 06/27/24 06:47 PG Care Time/CCT Total # of Minutes Spent Total Time Spent with Patient: Total time spent is greater than 50% in coordination of care (as documented) at patient's floor/unit and/or counseling patient: 35 minutes Coding Level of Care Code 72534 SUB INP/OBS CARE 2/35MIN Diagnoses Diverticulitis of jejunum K57.12 Primary hypertension I10 Hypertension type: primary hypertension (2) Hypertension Hypertension type: primary hypertension Qualified Code(s): I10 - Essential (primary) hypertension
[2024-06-28 06:12] LABS: BUN Creatinine Ratio 27.4 (10-20); Calcium 8.8 mg/dl (8.6-10.3); Creatinine Clr Calc Pharmacy 116.7 ml/min; Est GFR (African American) 120.2 ml/min; Est GFR (Non-African American) 103.7 ml/min; Magnesium 2.1 mg/dl (1.7-2.4); Phosphorus 3.9 mg/dl (2.5-4.9)
--- NOTE | 2024-06-28 09:23 | Surgery Progress Note ---
Date of Service June 28, 2024 Assessment & Plan (1) Diverticulitis of jejunum: Plan: advance to regular ambulate possibly home in AM Admission and Anticipated Discharge Date Admission Date: June 15, 2024 Subjective good BMs yesterday pain controlled ambulating Review of Systems Constitutional: no fever and no chills Respiratory: no cough and no dyspnea Cardiovascular: no chest pain Gastrointestinal: + abdominal pain; no nausea, no vomiting and no change in bowel habits Genitourinary: no dysuria Neurologic: + generalized weakness; no localized wea kness Psychiatric: no behavioral changes Physical Exam Constitutional: WD/WN, vitals as above Respiratory: normal respiratory effort, lungs clear to auscultation Cardiovascular: RRR, no murmur, no edema Gastrointestinal (Abdomen): Inspection/Auscultation: abdomen normal to inspection, normal bowel sounds and + abdominal surgical incision (ervin in place); abdomen not distended Musculoskeletal: Head/Neck/Chest: normocephalic and head atraumatic Results & Data Vital Signs (Past 12 Hours) Vital Signs Temp Pulse Resp BP Pulse Ox O2 Del Method 06/28/24 07:28 36.5 C 73 16 125/81 94 Room Air
--- NOTE | 2024-06-28 18:08 | Hospitalist Progress Note ---
Date of Service June 28, 2024 Assessment & Plan (1) Diverticulitis of jejunum: Plan: CT abd/pelvis 06/22: perforated jejunal diverticulitis. increase in ascites. mild small bowel dilation - ileus vs SBO 06/23 - s/p Exploratory lap, partial small bowel resection, partial omentectomy, removal of gallstone bezoar - Dr. Alberto remains on IV zosyn diet advanced to regular by gen surg today pain control - IV Dilaudid prn; transition to PO norco next 24 hours recently elevated platelets and WBC - improving appreciate gen surg assistance & recs (2) Hypertension: Plan: acceptable BPs on losartan 25mg daily which was initiated on 06/26/24 Plan Dyslipidemia - simvastatin on hold, but can be resumed upon d/c DVT ppx: Lovenox daily updated by prior provider on 06/22, 06/23, 06/25 Admission and Anticipated Discharge Date Admission Date: June 15, 2024 Subjective eating/drinking and tolerating such mild incisional abd pain with coughing, straining, moving no nausea or emesis passing flatus + stools ambulating w/o difficulty Review of Systems Review of Systems: cv - no chest pain, no orthopnea pulm - dyspnea or SHARMA GI - no N/V Physical Exam Physical Exam: gen - NAD, looks well mouth - MMM neck - no JVD heart - RRR, s1 s2, no murmur lungs - CTA b/l abd - soft, incisional tenderness, BS+ (hyperactive), ND, no HSM skin - abd wall dressings intact (I did not remove them) ext - no edema, pulses 2+ b/l Results & Data Results & Data Vital Signs (Past 12 Hours) Vital Signs Temp Pulse Resp BP Pulse Ox O2 Del Method 06/28/24 15:09 37.0 C 66 16 121/70 96 Room Air 06/28/24 07:28 36.5 C 73 16 125/81 94 Room Air Laboratory Results Laboratory Results 06/27/24 06/28/24 06:51 05:33 WBC 12.67 H RBC 4.16 L Hgb 12.4 L Hct 37.0 L MCV 88.9 MCH 29.8 MCHC 33.5 RDW Std Deviation 42.8 RDW Coeff of Dhaval 13.0 Plt Count 554 H MPV 9.2 L Immature Gran % (Auto) 1.3 Neut % (Auto) 67.0 Lymph % (Auto) 13.7 [place] % (Auto) 7.0 Eos % (Auto) 10.1 Baso % (Auto) 0.9 Neut # (Auto) 8.49 H Lymph # (Auto) 1.74 [place] # (Auto) 0.89 H Eos # (Auto) 1.28 H Baso # (Auto) 0.11 Immature Gran # (Auto) 0.16 Sodium 134 L Potassium 4.0 Chloride 100 Carbon Dioxide 28 Anion Gap 6 BUN 20 Creatinine 0.73 Est Cr Clr Drug Dosing 116.7 Est GFR ( Amer) 120.2 Est GFR (Non-Af Amer) 103.7 BUN/Creatinine Ratio 27.4 H Glucose 101 H Calcium 8.8 Phosphorus 3.9 Magnesium 2.1 PG Care Time/CCT Total # of Minutes Spent Total Time Spent with Patient: Total time spent is greater than 50% in coordination of care (as documented) at patient's floor/unit and/or counseling patient: Coding Level of Care Code 83323 SUB INP/OBS CARE 11/21MIN Diagnoses Diverticulitis of jejunum K57.12 Primary hypertension I10 Hypertension type: primary hypertension (2) Hypertension Hypertension type: primary hypertension Qualified Code(s): I10 - Essential (primary) hypertension
[2024-06-28 20:08] VITALS: TEMP 98.1
[2024-06-29 07:45] VITALS: BP 115/75; PULSE 77; RESP 20; O2SAT 98
--- NOTE | 2024-06-29 11:59 | Surgery Progress Note ---
Date of Service June 29, 2024 Assessment & Plan (1) Diverticulitis of jejunum: Plan: advance to regular ambulate May discharge to home from surgical standpoint today Will need follow-up in the general surgery clinic in 2 to 3 days for staple and [place] drain removal Admission and Anticipated Discharge Date Admission Date: June 15, 2024 Subjective Doing well. Tolerating diet. No complaints. No nausea or vomiting. Physical Exam Gastrointestinal (Abdomen): Inspection/Auscultation: + abdominal surgical incision (ervin in place) Percussion/Palpation: + abdomen tender and abdomen soft; no guarding and abdomen not rigid Results & Data Vital Signs (Past 12 Hours) Vital Signs Temp Pulse Resp BP Pulse Ox O2 Del Method 06/29/24 07:44 36.7 C 77 20 115/75 98 Room Air
[2024-06-29] MEDS: HYDROCODONE/ACETAMOPHEN 5/325MG TAB PO PRN (12:36)
--- NOTE | 2024-06-29 15:15 | Discharge Summary ---
Discharge Summary Date of Service June 29, 2024 Principal Dx & Hospital Course #1 = Principal Diagnosis (1) Diverticulitis of jejunum: CT abd/pelvis 06/22: perforated jejunal diverticulitis. increase in ascites. mild small bowel dilation - ileus vs SBO 06/23 - s/p Exploratory lap, partial small bowel resection, partial omentectomy, removal of gallstone bezoar - Dr. Alberto remains on IV zosyn diet advanced to regular by gen surg today pain control - IV Dilaudid prn; transition to PO norco next 24 hours recently elevated platelets and WBC - improving appreciate gen surg assistance & recs (2) Hypertension: acceptable BPs on losartan 25mg daily which was initiated on 06/26/24 Plan Dyslipidemia - simvastatin on hold, but can be resumed upon d/c DVT ppx: Lovenox daily updated by prior provider on 06/22, 06/23, 06/25 Admission HPI Per Admitting Provider Patient is a 58 y/o male with past medical history of dyslipidemia, major depression, and smoker who presents to hospital with abdominal pain, vomiting, fevers, and chills. Patient also has a history of small bowel obstruction with diverticulitis and microperforation in 2020. Patient had lower abdominal pain that started on Saturday morning that is worse with movement. Patient has been having regular BM. Denies any blood or discoloration of the stool. Have been formed stools. Last BM was last night. Patient has also been having nausea and yellowish vomiting that started yesterday. States that he has been having trouble getting and food down all day yesterday. Also states that he has been having fevers and chills that started yesterday. Discharge Exam gen - NAD, looks well mouth - MMM neck - no JVD heart - RRR, s1 s2, no murmur lungs - CTA b/l abd - soft, incisional tenderness, BS+ (hyperactive), ND, no HSM skin - abd wall dressings intact (I did not remove them) ext - no edema, pulses 2+ b/l Discharge Plan Discharge Items Patient Disposition: Home - Self-Care Reason For Visit: abdominal pain, vomiting Discharge Diagnosis: 1. small intestine (jejunal) diverticulitis 2. open partial small bowel resection - Dr Jaime Alberto, 06/23/24 3. removal of large gallstone from the small intestine 4. elevated blood pressures without a diagnosis of hypertension - high readings likely due to pain, etc - but follow-up with your family doctor for this 5. 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 - see handouts Condition on Discharge: Good Activity: Per Instructions section Lifting: No more than 10 pounds Bathing Comment: you can shower ONLY; no pools, hot tubs, or baths for 2 weeks Sexual Activity: Wait until after follow-up appointment Exercise/Sports: Wait until after follow-up appointment Driving/Machine Use: wait until cleared by surgeon Non-emergency contact: Primary Care Provider and Surgeon Call non-emergency contact if: you have any medication questions, your pain is not controlled, your pain is worsening, you have a fever, your wound has increased redness, your wound has increased drainage and your wound pain has increased Follow-up/Referrals: Francisco Alberto DO [Surgeon] - (please see Dr Alberto in 2-3 days ) Nery Palmer MD [Primary Care Provider] - (1-2 weeks) Diet: Low Fiber Addtl Attending Provider Instructions: Mr Kothari, You were hospitalized due to a severe case of diverticulitis of your small intestine. The jejunum was the specific location where your diverticulitis was located in the small intestinal tract. On 06/23/24 you were taken to the operating room by Dr Alberto. A small portion of the jejunum was resected/removed during your surgery. In addition, a very large gallstone was present within the small intestine. This, too, was removed by the surgeon. Following surgery you were gradually resumed on a liquid diet and this was advanced over several days. You received IV antibiotics your entire hospitalization. By time of discharge you are tolerating a diet and moving your bowels. Recommendations - 1. low fiber diet until your surgeon and/or family doctor gives the OK to resume a normal diet. See handout on low fiber. 2. antibiotics - amoxicillin-clavulanate 875mg twice daily x 3 days, first dose tonight with your evening meal. Most common side effect of this medicine -- diarrhea. 3. pain medicine - hydrocodone/acetaminophen 1 tablet every 4 hours as needed. This medicine is a narcotic pain killer medicine. The medicine can - * make you sleepy/drowsy * cause constipation * impair your thinking/senses * NO DRIVING or OPERATING HEAVY MACHINERY * NO ALCOHOL * note that this pain killer medicine has tylenol (acetaminophen) in it; thus, DO NOT take extra [id number]-bkcukem tylenol at this time * if you develop constipation from the pain killer you can take qncx-zew-oolpdzd miralax 1 serving daily for your bowels 4. for nausea you may take - ondansetron 4mg every 6 hours as needed for nausea/vomiting. 5. Dressings/incision - * You have kayce on your abdominal wall that will need to come out at your follow up appointment. Please keep surgical area clean and dry by covering it with dressings. You can apply gauze and tape for comfort. Change your dressing daily and as needed. Next dressing change is due on 06/30/24. * You have a small rubber drain in your incision as well. Leave this as is. The surgeon will remove it in the office along with the kayce. Know that you will be tired and a little weak upon return home. You have at least a couple of weeks of recovery ahead from your surgery & illness. Light walks are good for you during your recovery at home. Due to your diverticulosis (also known as diverticular disease) you would benefit from taking a fiber supplement daily sometime in the future. Please do not take such, however, at this time. This is something that can be started in month or two from now. Your surgeon & family doctor will talk to you about this in more detail down the line. Follow-up - see separate section Return to [facility] if - * you have fevers over 100 degrees * you have uncontrolled abdominal pain * you have persistent nausea and/or vomiting * you are not passing any gas from your rectum * you are not having bowel movements * you feel short of breath * you develop swelling in your legs * you have any concerns about your incision/kayce/etc. * you develop severe diarrhea * any other concerns It was our pleasure to care for you! Pending Studies at Discharge: No Stand-Alone Forms: [facility], Smoking Cessation Medications and DC Order Prescriptions: New hydrocodone-acetaminophen 5-325 mg Tablet 1 tab PO Q4H PRN (Reason: pain) Qty: 20 0RF amoxicillin-pot clavulanate 875-125 mg tablet 1 tab PO BID 3 Days Qty: 6 0RF Rx Instructions: take with meals ondansetron 4 mg tablet,disintegrating 4 mg PO Q6H PRN (Reason: nausea and vomiting) Qty: 10 0RF Discharge Orders: Discharge Order (Routine); Ordered 06/29/24 Ordered By: Migel Brock/Other Patient Handouts: Low-Fiber Diet, Diverticulosis and Diverticulitis Admission Data Admit Date/Time: 06/15/24 12:06 Attending Provider: Migel Martin Admit Provider: Sonido Mobley Primary Care Provider: Nery Palmer Other Providers: Sonido Mobley; Francisco Alberto Hospital Stay Data Consultations 06/15/24 11:46 ED Decision to Admit Stat 06/15/24 13:04 Consult General Surgery Routine Procedures Performed Operation Date: 06/23/24 13:15 Actual Procedures p Exploratory laparotomy, partial small bowel resection, partial omentectomy (Not Applicable) - Francisco Alberto, Diagnostic Imagining Performed 06/15/24 08:30 CT abd pelvis IV con only Stat 06/17/24 07:28 CT Abd and Pelvis [CT abd pelvis oral and IV con] Urgent 06/22/24 07:00 CT abd pelvis IV con only Routine Pending Results Patient Have Any Pending Studies at Discharge: No Discharge Instructions Given to Patient (Per Discharging Provider) Mr Kothari, [place] were hospitalized due to a severe case of diverticulitis of your small intestine. The jejunum was the specific location where your diverticulitis was located in the small intestinal tract. On 06/23/24 you were taken to the operating room by Dr Alberto. A small portion of the jejunum was resected/removed during your surgery. In addition, a very large gallstone was present within the small intestine. This, too, was removed by the surgeon. Following surgery you were gradually resumed on a liquid diet and this was advanced over several days. You received IV antibiotics your entire hospitalization. By time of discharge you are tolerating a diet and moving your bowels. Recommendations - 1. low fiber diet until your surgeon and/or family doctor gives the OK to resume a normal diet. See handout on low fiber. 2. antibiotics - amoxicillin-clavulanate 875mg twice daily x 3 days, first dose tonight with your evening meal. Most common side effect of this medicine -- diarrhea. 3. pain medicine - hydrocodone/acetaminophen 1 tablet every 4 hours as needed. This medicine is a narcotic pain killer medicine. The medicine can - * make you sleepy/drowsy * cause constipation * impair your thinking/senses * NO DRIVING or OPERATING HEAVY MACHINERY * NO ALCOHOL * note that this pain killer medicine has tylenol (acetaminophen) in it; thus, DO NOT take extra atxo-mpa-qudlwqz tylenol at this time * if you develop constipation from the pain killer you can take pfmt-xqg-yqxjsqb miralax 1 serving daily for your bowels 4. for nausea you may take - ondansetron 4mg every 6 hours as needed for jonel sea/vomiting. 5. Dressings/incision - * You have kayce on your abdominal wall that will need to come out at your follow up appointment. Please keep surgical area clean and dry by covering it with dressings. You can apply gauze and tape for comfort. Change your dressing daily and as needed. Next dressing change is due on 06/30/24. * You have a small rubber drain in your incision as well. Leave this as is. The surgeon will remove it in the office along with the kayce. Know that you will be tired and a little weak upon return home. You have at least a couple of weeks of recovery ahead from your surgery & illness. Light walks are good for you during your recovery at home. Due to your diverticulosis (also known as diverticular disease) you would benefit from taking a fiber supplement daily sometime in the future. Please do not take such, however, at this time. This is something that can be started in month or two from now. Your surgeon & family doctor will talk to you about this in more detail down the line. Follow-up - see separate section Return to [facility] if - * you have fevers over 100 degrees * you have uncontrolled abdominal pain * you have persistent nausea and/or vomiting * you are not passing any gas from your rectum * you are not having bowel movements * you feel short of breath * you develop swelling in your legs * you have any concerns about your incision/kayce/etc. * you develop severe diarrhea * any other concerns It was our pleasure to care for you! Coding Diagnoses Diverticulitis of jejunum K57.12 Primary hypertension I10 Hypertension type: primary hypertension
== END 2024-06-29 15:52 | disposition home or self-care (01) | DRG 330 ==
LOC: ED 08:17 → 3N 12:06 → SUATTDRO 12:06 → 3N 12:35